=== PATIENT | female | born 1955 | race African-American/Black ===

== ENCOUNTER → 2016-11-09 | Outpatient (CLI) | payer OTHER ==
[2016-10-22 18:15] VITALS: BP 158/74
[~2016-11-09] MED LIST: HYDR-971 PO; IOHEXOL 240 MG/ML 50ML VIAL. PO ONE; IOHEXOL 300 MG/ML 100ML VIAL. IV ONE; METH-37 PO
--- NOTE | 2016-11-09 13:37 | KCIC ---
Examination: CT of the abdomen pelvis without and with IV contrast. HISTORY History of lower abdominal pain on the left side, pelvic pain for 1 year. COMPARISON None available. TECHNIQUE Axial CT images of the abdomen performed without and with IV contrast. Coronal reformats were performed. Sagittal reformats were performed. Exposure: One or more of the following dose reduction technique were utilized for this examination: 1. Automated exposure control. 2.Adjustment of MA and /or KV according to patient size. 3. Use of iterative reconstruction technique. Findings: Faint patchy bibasal, left lingular airspace opacities likely atelectasis or infiltrates. No evidence of free air identified in the abdomen. The visualized liver, spleen, right adrenal grossly appears unremarkable. There is a nodule identified in the left adrenal gland measuring 1.8 centimeters and measuring 25 Hounsfield units on the noncontrast images and 70 Hounsfield units on the postcontrast images. The visualized pancreas grossly appears unremarkable. The gallbladder is mildly distended. There is a hyperdensity identified in the proximal gallbladder in the region of the gallbladder neck measuring 1 centimeter likely a gallstone. The stomach is mildly distended. The small bowel is nondilated. The appendix grossly appears unremarkable. Feces and gas noted throughout the colon. The urinary bladder is mildly distended loop. The bilateral kidneys enhance symmetrically. Prior changes of hysterectomy. The right ovary grossly appears unremarkable. 2 millimeter punctate intrarenal collecting system calculus identified in the right kidney. There is minimal faint fat stranding identified about the left kidney. The urinary bladder is mildly distended. Moderate degenerative changes identified in the visualized thoracolumbar spine. IMPRESSION - 2 millimeter intrarenal collecting system calculus identified in the right kidney. - There is faint fat stranding identified about the left kidney, nonspecific and less likely pyelonephritis. Correlate with lab values. - 1.8 centimeter left adrenal nodule. Followup examination in 3-4 months is recommended to document stability. - Gallstone in the proximal gallbladder likely within the gallbladder neck. Ultrasound right upper quadrant be considered. - Faint airspace opacities identified in the left lingula and bibasilar lungs likely atelectasis or infiltrates. Electronically signed by: Stepan Fox (Nov 09, 2016 13:36:10)
== END | disposition home or self-care (01) ==
LOC: KCIC CT 11:13
PROVIDERS: ATTEND Family Medicine
DX: R10.30 Lower abdominal pain, unspecified (principal); M54.5 Low back pain; R10.2 Pelvic and perineal pain; I10 Essential (primary) hypertension; E11.9 Type 2 diabetes mellitus without complications
CPT/HCPCS: 74178; 82565; Q9966; Q9967

== ENCOUNTER → 2016-12-25 | Outpatient (CLI) | payer OTHER ==
[2016-10-22 18:15] VITALS: BP 158/74
[~2016-12-25] MED LIST changes: -IOHEXOL 240 MG/ML 50ML VIAL. PO ONE; -IOHEXOL 300 MG/ML 100ML VIAL. IV ONE
--- NOTE | 2016-12-25 10:35 | KCIC ---
Bilateral digital screening mammograms with CAD: HISTORY Routine screening. COMPARISON No previous examinations available for comparison. FINDINGS Breast density category A. The skin and nipples show no abnormalities. No abnormal lymph nodes are seen in the axilla. The breast parenchyma is predominately fatty. There are no dominant masses, suspicious calcifications or architectural distortions. IMPRESSION No evidence of malignancy. Recommend routine annual mammographic screening. This study was interpreted with the benefit of Computerized Aided Detection (CAD). Mammography is not 100% sensitive in detecting breast cancer. Therefore, a self breast exam and a clinical breast exam are very important. A negative mammogram does not negate a clinically suspicious finding and should not result in a delay in biopsying a clinically suspicious abnormality. BI-RADS category 1. Negative. This patient's information has been entered into a reminder system for the patient to be notified with the results of this examination and a target date for her next mammograms. Electronically signed by: Samia Downey MD (Dec 25, 2016 10:34:13)
== END | disposition home or self-care (01) ==
LOC: KCIC MAMMO 09:26
PROVIDERS: ATTEND Obstetrics & Gynecology
DX: Z12.31 Encounter for screening mammogram for malignant neoplasm of breast (principal)
CPT/HCPCS: G0202; 77067

== ENCOUNTER 2017-01-10 09:05 | Emergency (ER) | payer OTHER ==
--- NOTE | 2017-01-10 09:49 | PHYS DOC ---
Past Medical History Past Medical History: Arthritis, Diabetes-Type II, Hypertension Past Surgical History: , Hysterectomy, Tonsillectomy Alcohol Use: None Drug Use: None Adult General Chief Complaint Chief Complaint: OTHER COMPLAINTS HPI HPI Patient is a 61 year old female presents to the emergency department with 2-3 days HX of left lower back pain that radiates into the left leg. Patient denies falls, traumas or injury. Patient Denies nausea, vomiting or diarrhea. She states she has had left sided abdominal with a hard BM yesterday and today. She denies UTI symptoms. Patient does have a HX of sciatica pain. Patient has taken Tylenol with minimal relief. Review of Systems Review of Systems Constitutional: Denies fever or chills [] Eyes: Denies change in visual acuity, redness, or eye pain [] HENT: Denies nasal congestion or sore throat [] Respiratory: Denies cough or shortness of breath [] Cardiovascular: No additional information not addressed in HPI [] GI: left sided abdominal pain, hard stools, denies nausea, vomiting, bloody stools or diarrhea [] : Denies dysuria or hematuria [] Musculoskeletal: Denies back pain or joint pain [] Integument: Denies rash or skin lesions [] Neurologic: Denies headache, focal weakness or sensory changes [] Endocrine: Denies polyuria or polydipsia [] Current Medications Current Medications Current Medications Medications (Trade) Dose Ordered Sig/[facility] Start Time Stop Time Status Last Admin Dose Admin Ibuprofen (Motrin) 600 mg 1X ONCE 01/10/17 10:00 01/10/17 10:01 DC 01/10/17 09:51 600 MG Prednisone (Prednisone) 40 mg 1X ONCE 01/10/17 10:00 01/10/17 10:01 DC 01/10/17 09:50 40 MG Allergies Allergies Allergies Coded Allergies Type Severity Reaction Last Updated Verified No Known Drug Allergies 04/13/15 No Physical Exam Physical Exam Constitutional: Well developed, well nourished, no acute distress, non-toxic appearance. [] HENT: Normocephalic, atraumatic, bilateral external ears normal, oropharynx moist, no oral exudates, nose normal. [] Eyes: PERRLA, EOMI, conjunctiva normal, no discharge. [] Neck: Normal range of motion, no tenderness, supple, no stridor. [] Cardiovascular:Heart rate regular rhythm, no murmur [] Lungs & Thorax: Bilateral breath sounds clear to auscultation [] Abdomen: Bowel sounds hypoactive, soft, left upper and lower quadrant tenderness , no masses, no pulsatile masses. [] Skin: Warm, dry, no erythema, no rash. [] Back: left lower back tenderness, no CVA tenderness. [] Extremities: Left hip tenderness noted over the sciatica area, no cyanosis, no clubbing, ROM intact, no edema. Peripheral pulses 2+ cap refill brisk less than 2 seconds. Patient with equal strength noted per bilateral lower extremities. Neurologic: Alert and oriented X 3, normal motor function, normal sensory function, no focal deficits noted. [] Psychologic: Affect normal, judgement normal, mood normal. [] Current Patient Data Vital Signs Vital Signs Date Time Temp Pulse Resp B/P Pulse Ox O2 Delivery O2 Flow Rate FiO2 01/10/17 09:20 97.7 83 22 172/91 98 Room Air 97.7 EKG EKG [] Radiology/Procedures Radiology/Procedures [][facility] [address] [place] [address] IMAGING REPORT Signed PATIENT: LEISA TURK ACCOUNT: [id number] : 1955 LOCATION: ER AGE: 61 SEX: F EXAM STATUS: REG ER ORD. PHYSICIAN: MACKENZIE BARRIOS APRN REASON: left sided abdominal pain, hard BM today PROCEDURE: ACUTE ABDOMEN SERIES Abdomen series with chest, 3 views, 01/10/2017: History: Left-sided abdominal pain There is gas and stool scattered throughout the colon in a nonspecific pattern. No free air seen in the abdomen. There is no evidence of organomegaly. Lower pelvic calcifications are probably phleboliths. There is a mild thoracolumbar scoliosis with moderate degenerative change in the lumbar spine. The heart size and pulmonary vascularity are normal. No pulmonary infiltrate is seen. There is no evidence of pleural fluid. IMPRESSION: No acute abdominal abnormality is detected. DICTATED and SIGNED BY: DAMARIS ROGER MD DATE: 01/10/17 0823 CC: MACKENZIE BARRIOS APRN; ARVIND CHRISTIANSEN MD ~ Course & Med Decision Making Course & Med Decision Making Pertinent Labs and Imaging studies reviewed. (See chart for details) Acute abdominal x-ray was negative. Patient will be discharged home with steroids with recommendations for 600 mg of ibuprofen every 8 hours with food. Also recommended ice packs to the areas of discomfort. Signs and symptoms to return back to emergency department provided. Patient will be discharged home in stable condition. Patient agrees with discharge instructions treatment regimens and follow-up recommendations. [] Dragon Disclaimer Dragon Disclaimer This electronic medical record was generated, in whole or in part, using a voice recognition dictation system. Departure Departure Impression: Primary Impression: Sciatica Disposition: HOME, SELF-CARE Condition: STABLE Referrals: ARVIND CHRISTIANSEN MD (PCP) Patient Instructions: Sciatica, [id number] Additional Instructions: Activity as tolerated Medication as prescribed Ibuprofen 600 mg every 8 hous with food. Flexeril will cause drowsiness do not take if you need to be alert and oriented Ice packs on 20 minutes and off 20 minutes several time a day Drink plenty of water and high fiber diet to help promote softer stools Followup with your primary care provider in 7-10 days Return to emergency department for signs and symptoms that become worse. Scripts Prednisone 20 Mg [id number] Mg PO DAILY #10 TAB Prov:MACKENZIE BARRIOS APRN 01/10/17 Cyclobenzaprine Hcl 10 Mg [id number] Mg PO TID #30 TAB Prov:MACKENZIE BARRIOS APRN 01/10/17 MACKENZIE BARRIOS APRN Jan 10, 2017 09:49
[2017-01-10 10:00] VITALS: BP 183/95
[2017-01-10] MEDS ORDERED: IBUPROFEN 600 MG TABLET. PO ONE (10:00)
[2017-01-10] MEDS ORDERED: PREDNISONE 20 MG TABLET PO ONE (10:00)
--- NOTE | 2017-01-10 10:27 | RAD ---
Abdomen series with chest, 3 views, 01/10/2017: History: Left-sided abdominal pain There is gas and stool scattered throughout the colon in a nonspecific pattern. No free air seen in the abdomen. There is no evidence of organomegaly. Lower pelvic calcifications are probably phleboliths. There is a mild thoracolumbar scoliosis with moderate degenerative change in the lumbar spine. The heart size and pulmonary vascularity are normal. No pulmonary infiltrate is seen. There is no evidence of pleural fluid. IMPRESSION: No acute abdominal abnormality is detected.
[2017-01-10] MEDS ORDERED: CYCL10TA2 PO (10:35)
[2017-01-10] MEDS ORDERED: PRED20TA PO (10:35)
== END 2017-01-10 10:45 | disposition home or self-care (01) ==
LOC: ER 09:05
DX: M54.42 Lumbago with sciatica, left side (principal); R10.12 Left upper quadrant pain; M19.90 Unspecified osteoarthritis, unspecified site; E11.9 Type 2 diabetes mellitus without complications; I10 Essential (primary) hypertension; Z90.710 Acquired absence of both cervix and uterus; Z98.890 Other specified postprocedural states
CPT/HCPCS: 74022; 99284; J7512

== ENCOUNTER → 2017-01-25 | Outpatient (CLI) | payer OTHER ==
[2017-01-10 10:00] VITALS: BP 183/95
[~2017-01-25] MED LIST changes: +CYCL10TA2 PO; +PRED20TA PO
--- NOTE | 2017-01-25 10:17 | KCIC ---
PROCEDURE Lumbar spine series. HISTORY Low back pain radiating down left leg for 3-4 weeks. No known injury. TECHNIQUE Lumbosacral spine series with oblique views contains 5 images. COMPARISON None. FINDINGS There is 11 millimeters of anterolisthesis at L4-L5. There is mild levocurvature centered at L1-L2. There is endplate spurring noted throughout the lumbar spine, greatest on the right at L1-L2 and L2-L3. There is facet hypertrophy throughout the lumbar spine as well. There is narrowing of the interspace greatest at L3-L4. IMPRESSION Degenerative changes in the lumbar spine. Electronically signed by: Aaron Aviles MD (January 25, 2017 10:16:30)
== END | disposition home or self-care (01) ==
LOC: KCIC 09:13
PROVIDERS: ATTEND Family Medicine
DX: M47.896 Other spondylosis, lumbar region (principal)
CPT/HCPCS: 72110

== ENCOUNTER 2017-01-26 12:15 | Emergency (ER) | payer OTHER ==
--- NOTE | 2017-01-26 13:07 | PHYS DOC ---
Past Medical History Past Medical History: Arthritis, Diabetes-Type II, Hypertension Past Surgical History: , Hysterectomy, Tonsillectomy Alcohol Use: None Drug Use: None Adult General Chief Complaint Chief Complaint: BACK PAIN - NO INJURY [facility] HPI Patient is a 61 year old -[place] female who presents with sided sciatic pain. She states she's had this pain numerous times in the last time she was sent home with muscle relaxant and some pain meds. She states she ran out of these. She states a week ago her pain flared back up. Yesterday she had hip x-rays completed by her primary care physician. She denies any fevers chills nausea vomiting or leg weakness or numbness. She states she feels better when she is up walking and worse when she sits. She can't remember the names of the medicines she used to be on. Her grandson drove her to the emergency department. She denies any falls or trauma. Review of Systems Review of Systems Constitutional: Denies fever or chills [] Eyes: Denies change in visual acuity, redness, or eye pain [] HENT: Denies nasal congestion or sore throat [] Respiratory: Denies cough or shortness of breath [] Cardiovascular: No additional information not addressed in HPI [] GI: Denies abdominal pain, nausea, vomiting, bloody stools or diarrhea [] : Denies dysuria or hematuria [] Musculoskeletal: Denies back pain positive for left hip pain Integument: Denies rash or skin lesions [] Neurologic: Denies headache, focal weakness or sensory changes [] Endocrine: Denies polyuria or polydipsia [] Current Medications Current Medications Current Medications Medications (Trade) Dose Ordered Sig/[facility] Start Time Stop Time Status Last Admin Dose Admin Morphine Sulfate 4 mg 1X ONCE 01/26/17 13:30 01/26/17 13:42 DC 01/26/17 13:44 4 MG Allergies Allergies Allergies Coded Allergies Type Severity Reaction Last Updated Verified No Known Drug Allergies 04/13/15 No Physical Exam Physical Exam Constitutional: Well developed, well nourished, no acute distress, non-toxic appearance. [] HENT: Normocephalic, atraumatic, bilateral external ears normal, oropharynx moist, no oral exudates, nose normal. [] Eyes: PERRLA, EOMI, conjunctiva normal, no discharge. [] Neck: Normal range of motion, no tenderness, supple, no stridor. [] Cardiovascular:Heart rate regular rhythm, no murmur [] Lungs & Thorax: Bilateral breath sounds clear to auscultation [] Abdomen: Bowel sounds normal, soft, no tenderness, no masses, no pulsatile masses. [] Skin: Warm, dry, no erythema, no rash. [] Back: No tenderness, no CVA tenderness. Tender palpation to the left hip the posterior aspect, straight leg raise on the left positive. Extremities: No tenderness, no cyanosis, no clubbing, ROM intact, no edema. Dorsal pedal pulse 2+ bilateral lower extremities. Neurologic: Alert and oriented X 3, normal motor function, normal sensory function, no focal deficits noted. [] Psychologic: Affect normal, judgement normal, mood normal. [] Current Patient Data Vital Signs Vital Signs Date Time Temp Pulse Resp B/P (MAP) Pulse Ox O2 Delivery O2 Flow Rate FiO2 01/26/17 14:11 95 Room Air 01/26/17 13:55 89 18 114/63 (80) 01/26/17 12:25 97.9 97.9 EKG EKG [] Radiology/Procedures Radiology/Procedures [] Impressions: Sciatic pain Course & Med Decision Making Course & Med Decision Making Pertinent Labs and Imaging studies reviewed. (See chart for details) Patient is neurovascularly intact. She received 4 mg IM morphine and is being discharged home with Hamilton. She has Flexeril at home. She is to follow-up with her primary care physician within next few days. Return precautions given she is agreeable Plan B discharged in stable condition this time. Dragon Disclaimer Dragon Disclaimer This electronic medical record was generated, in whole or in part, using a voice recognition dictation system. Departure Departure Impression: Primary Impression: Sciatica Disposition: HOME, SELF-CARE Condition: STABLE Referrals: ARVIND CHRISTIANSEN MD (PCP) Patient Instructions: Sciatica, [id number] Additional Instructions: Your pain is consistent with sciatic nerve pain. You will need to continue taking your muscle relaxants at home. Your being discharged with Hamilton which is a narcotic pain medicine please be careful taking Hamilton as it can impair your judgment and make you sleepy. Do not drive your car while taking Hamilton. You will need to call your primary care physician and follow up with him within the next 3-4 days. If your pain gets worse, you have numbness, weakness in your leg we have other concerns please return back to emergency department. Scripts Hydrocodone/Apap 5-325 (NORCO 5-325 TABLET) 1 Each Tablet 1-2 TAB PO Q6HRS, #30 TAB Prov: ELAYNE RAMÍREZ MD 01/26/17 Problem Qualifiers Primary Impression: Sciatica Laterality: left Qualified Codes: M54.32 - Sciatica, left side ELAYNE RAMÍREZ MD January 26, 2017 13:07
[2017-01-26] MEDS ORDERED: MORPHINE SULFATE 4 MG/ML DISP.SYRIN. IM ONE (13:30)
[2017-01-26] MEDS ORDERED: HYDR-971 PO (14:16)
[2017-01-26 14:40] VITALS: BP 120/65
== END 2017-01-26 14:55 | disposition home or self-care (01) ==
LOC: ER 12:15
DX: M54.32 Sciatica, left side (principal); I10 Essential (primary) hypertension; E11.9 Type 2 diabetes mellitus without complications; M19.90 Unspecified osteoarthritis, unspecified site; Z98.890 Other specified postprocedural states; Z90.710 Acquired absence of both cervix and uterus
CPT/HCPCS: 96372; 99283; J2270

== ENCOUNTER → 2017-02-05 | Outpatient (CLI) | payer OTHER ==
[2017-01-26 14:40] VITALS: BP 120/65
--- NOTE | 2017-02-05 17:21 | KCIC ---
PROCEDURE MRI of the lumbar spine without contrast 02/05/2017 HISTORY Low back pain which radiates down the left leg. TECHNIQUE Unenhanced T1 weighted, T2 weighted and inversion recovery sagittal and T1 weighted and T2 weighted sagittal images of the lumbar spine were obtained. FINDINGS Comparison study is dated 01/25/2017. Mild lateral curvature of the lumbar spine is seen convex to the left. Mild anterolisthesis of L4 in relation to L5 is again seen. Degenerative signal changes are seen involving all of the discs of the lumbar spine. Degenerative signal changes are seen within the marrow surrounding these discs. Loss of height of the L3-4, L4-5 and L5-S1 discs is noted. The conus medullaris is normal in morphology, position, and signal characteristics. The L1-2 disc space there is a mild generalized disc bulge. Degenerative changes are seen involving the facet joints bilaterally. There is mild ligamentum flavum hypertrophy bilaterally. These findings do not result in significant central spinal canal or neural foraminal stenosis. At the L2-3 disc space there is mild to moderate generalized disc bulge. This is eccentric to the right. Degenerative changes are seen involving the facet joints bilaterally. There is moderate ligamentum flavum hypertrophy bilaterally. There is prominence of the posterior epidural fat. The these findings when combined result in moderate central spinal canal stenosis. Mild right neural foraminal stenosis is seen. The left neural foramina is patent. At the L3-4 disc space there is a moderate generalized disc bulge. Degenerative changes are seen involving the facet joints bilaterally. There is moderate ligamentum flavum hypertrophy bilaterally. There is prominence of the posterior epidural fat. These findings when combined result in moderate to severe central spinal canal stenosis. Moderate bilateral neural foraminal stenosis is seen. At the L4-5 disc space there is a moderate generalized disc bulge. This is eccentric to the left. Degenerative changes are seen involving the facet joints bilaterally. There is moderate to severe ligamentum flavum hypertrophy bilaterally. These findings when combined result in moderate to severe left greater than right central spinal canal stenosis. Mild to moderate left greater than right neural foraminal stenosis is seen. At the L5-S1 disc space there is moderate generalized disc bulge. This is eccentric to the left. Degenerative changes are seen involving the facet joints bilaterally. These findings when combined result in mild central spinal canal stenosis. Mild to moderate left greater than right neural foraminal stenosis is seen. IMPRESSION The changes of degenerative disc disease are seen throughout the lumbar spine. These findings result in moderate central spinal canal stenosis at L2-3, moderate to severe central spinal canal stenosis at L3-4, moderate to severe left greater than right neural foraminal stenosis at L4-5 and mild central spinal canal stenosis at L5-S1. Multilevel neural foraminal stenosis of varying severity is seen as outlined above. Electronically signed by: Fred Duarte MD (February 05, 2017 17:20:30)
== END | disposition home or self-care (01) ==
LOC: KCIC MRI 15:34
PROVIDERS: ATTEND Family Medicine
DX: M51.36 Other intervertebral disc degeneration, lumbar region (principal); M48.07 Spinal stenosis, lumbosacral region
CPT/HCPCS: 72148

== ENCOUNTER 2017-02-15 12:07 | Emergency (ER) | payer OTHER ==
[~2017-02-15] VITALS: Ht 157.5 cm; Wt 104.3 kg
[2017-02-15 13:00] VITALS: BP 147/88
--- NOTE | 2017-02-15 13:25 | PHYS DOC ---
Past Medical History Past Medical History: Arthritis, Diabetes-Type II, Hypertension Past Surgical History: , Hysterectomy, Tonsillectomy Alcohol Use: None Drug Use: None Adult General Chief Complaint Chief Complaint: LACERATION/AVULSION HPI HPI Patient is a 61 year old female presents emergency department stating that she was in the bathroom trying to clean things up when she went to catch a pitcher ended up cutting her in the right palm. She states that she is unsure when her last tetanus immunization occurred. Bleeding is currently controlled. A 4 cm laceration noted on the first metacarpal area on the right. Review of Systems Review of Systems Constitutional: Denies fever or chills [] Eyes: Denies change in visual acuity, redness, or eye pain [] HENT: Denies nasal congestion or sore throat [] Respiratory: Denies cough or shortness of breath [] Cardiovascular: No additional information not addressed in HPI [] GI: Denies abdominal pain, nausea, vomiting, bloody stools or diarrhea [] : Denies dysuria or hematuria [] Musculoskeletal: Denies back pain or joint pain [] Integument: Denies rash or skin lesions. Laceration right palm of hand Neurologic: Denies headache, focal weakness or sensory changes [] Endocrine: Denies polyuria or polydipsia [] Allergies Allergies Allergies Coded Allergies Type Severity Reaction Last Updated Verified No Known Drug Allergies 04/13/15 No Physical Exam Physical Exam Constitutional: Well developed, well nourished, no acute distress, non-toxic appearance. [] HENT: Normocephalic, atraumatic, bilateral external ears normal, oropharynx moist, no oral exudates, nose normal. [] Eyes: PERRLA, EOMI, conjunctiva normal, no discharge. [] Neck: Normal range of motion, no tenderness, supple, no stridor. [] Cardiovascular:Heart rate regular rhythm, no murmur [] Lungs & Thorax: Bilateral breath sounds clear to auscultation [] Skin: Warm, dry, no erythema, no rash. Laceration 4 cm in length to the first medical carpal area on the right hand in the palmar side. Back: No tenderness Extremities: No tenderness, no cyanosis, no clubbing, ROM intact, no edema. [] Neurologic: Alert and oriented X 3, normal motor function, normal sensory function, no focal deficits noted. [] Psychologic: Affect normal, judgement normal, mood normal. [] Current Patient Data Vital Signs Vital Signs Date Time Temp Pulse Resp B/P (MAP) Pulse Ox O2 Delivery O2 Flow Rate FiO2 02/15/17 13:00 97.9 75 16 98 Room Air 97.9 EKG EKG [] Radiology/Procedures Radiology/Procedures [] Course & Med Decision Making Course & Med Decision Making Pertinent Labs and Imaging studies reviewed. (See chart for details) She was provided with discharge instructions to keep the area clean and dry. Avoid removing the glue from the hand as this will open up the area further. Area was Steri-Stripped in which she Steri-Strips will fall off in approximately 7 days.Signs and symptoms to return back to emergency department as been provided. She is provided with signs and symptoms of infection: Redness , warmth, tenderness. Patient will be discharged home in stable condition. Dragon Disclaimer Dragon Disclaimer This electronic medical record was generated, in whole or in part, using a voice recognition dictation system. Departure Departure Impression: Primary Impression: Laceration Disposition: 01 HOME, SELF-CARE Condition: STABLE Referrals: ARVIND CHRISTIANSEN MD (PCP) Patient Instructions: Laceration Care, Adult, [id number], Stitches, [place] or Skin Adhesive Strips, [id number] Additional Instructions: Activity as tolerated. Keep the area clean and dry. The Steri-Strips should fall off in approximately 7-10 days. Do not peel the Steri-Strips or the glue off as this will reopened the laceration. You may apply ice packs as needed for pain and discomfort. Follow-up through primary care physician in the next 7-10 days if he should have any signs and symptoms of infection redness warmth tenderness or any yellow or greenish drainage and comes from the site. Return to emergency prior signs symptoms of become worse. MACKENZIE BARRIOS CODE INSPECTOR February 15, 2017 13:25
[2017-02-15] MEDS ORDERED: DIPHTH,PERTUSS(ACELL),TET TOX 0.5 ML DISP.SYRIN. VAX IM ONE (14:00)
== END 2017-02-15 14:01 | disposition home or self-care (01) ==
LOC: ER 12:07
DX: S61.210A Laceration without foreign body of right index finger without damage to nail, initial encounter (principal); I10 Essential (primary) hypertension; E11.9 Type 2 diabetes mellitus without complications; M19.90 Unspecified osteoarthritis, unspecified site; Y28.8XXA Contact with other sharp object, undetermined intent, initial encounter; Y93.89 Activity, other specified; Y99.8 Other external cause status; Y92.89 Other specified places as the place of occurrence of the external cause
CPT/HCPCS: 90471; 90715; 99283-25

== ENCOUNTER 2017-05-18 14:38 | Observation (INO) | payer OTHER ==
[~2017-05-18] VITALS: Ht 157.5 cm; Wt 118.8 kg
[2017-05-18 15:00] LABS: BASO # 0.1 x10^3/uL (0.0-0.2); BASO % 1 % (0-3); EOS % 4 % (0-3); HEMATOCRIT 33.4 % (36.0-47.0); HEMOGLOBIN 11.4 g/dL (12.0-15.5); LYMPH # 2.7 x10^3/uL (1.0-4.8); LYMPH % 31 % (24-48); MEAN CORPUSCULAR HEMOGLOBIN 31 pg (25-35); MEAN CORPUSCULAR HGB CONC 34 g/dL (31-37); MEAN CORPUSCULAR VOLUME 91 fL (79-100); MONO % 7 % (0-9); NEUT % 58 % (31-73); PLATELET COUNT 307 x10^3/uL (140-400); RED BLOOD COUNT 3.66 x10^6/uL (3.50-5.40); RED CELL DISTRIBUTION WIDTH 14.3 % (11.5-14.5); WHITE BLOOD COUNT 8.8 x10^3/uL (4.0-11.0)
--- NOTE | 2017-05-18 15:02 | PHYS DOC ---
Past Medical History Past Medical History: Arthritis, Diabetes-Type II, Hypertension Past Surgical History: , Hysterectomy, Tonsillectomy Alcohol Use: None Drug Use: None Adult General Chief Complaint Chief Complaint: CHEST PAIN HPI HPI Patient is a 62 year old female who presents with one week history of intermittent intensity right sided chest discomfort not exertional no cough fever is not radiate to the shoulder or neck. No prior workup for cardiac disease. Denies tobacco admits to family history with brother with coronary artery disease. Denies any prior stress test or heart catheter. Denies leg pain or swelling. Review of Systems Review of Systems Constitutional: Denies fever or chills [] Eyes: Denies change in visual acuity, redness, or eye pain [] HENT: Denies nasal congestion or sore throat [] Respiratory: Denies cough or shortness of breath [] Cardiovascular: No additional information not addressed in HPI [] GI: Denies abdominal pain, nausea, vomiting, bloody stools or diarrhea [] : Denies dysuria or hematuria [] Musculoskeletal: Denies back pain or joint pain [] Integument: Denies rash or skin lesions [] Neurologic: Denies headache, focal weakness or sensory changes [] Endocrine: Denies polyuria or polydipsia [] Allergies Allergies Allergies Coded Allergies Type Severity Reaction Last Updated Verified No Known Drug Allergies 04/13/15 No Physical Exam Physical Exam Constitutional: Well developed, well nourished, no acute distress, non-toxic appearance. [] HENT: Normocephalic, atraumatic, bilateral external ears normal, oropharynx moist, no oral exudates, nose normal. [] Eyes: PERRLA, EOMI, conjunctiva normal, no discharge. [] Neck: Normal range of motion, no tenderness, supple, no stridor. [] Cardiovascular:Heart rate regular rhythm, no murmur [chest wall is exquisitely tender in the right upper outer quadrant of the breast no palpable mass or lymphadenopathy in the axilla.] Lungs & Thorax: Bilateral breath sounds clear to auscultation [] Abdomen: Bowel sounds normal, soft, no tenderness, no masses, no pulsatile masses. [] Skin: Warm, dry, no erythema, no rash. [] Back: No tenderness, no CVA tenderness. [] Extremities: No tenderness, no cyanosis, no clubbing, ROM intact, no edema. [] Neurologic: Alert and oriented X 3, normal motor function, normal sensory function, no focal deficits noted. [] Psychologic: Affect normal, judgement normal, mood normal. [] Current Patient Data Vital Signs Vital Signs Date Time Temp Pulse Resp B/P (MAP) Pulse Ox O2 Delivery O2 Flow Rate FiO2 05/18/17 15:22 87 20 124/75 (91) 97 Room Air 05/18/17 14:40 97.7 97.7 Lab Values Laboratory Tests Test 05/18/17 14:55 White Blood Count 8.8 x10^3/uL (4.0-11.0) Red Blood Count 3.66 x10^6/uL (3.50-5.40) Hemoglobin 11.4 g/dL (12.0-15.5) L Hematocrit 33.4 % (36.0-47.0) L Mean Corpuscular Volume 91 fL (79-100) Mean Corpuscular Hemoglobin 31 pg (25-35) Mean Corpuscular Hemoglobin Concent 34 g/dL (31-37) Red Cell Distribution Width 14.3 % (11.5-14.5) Platelet Count 307 x10^3/uL (140-400) Neutrophils (%) (Auto) 58 % (31-73) Lymphocytes (%) (Auto) 31 % (24-48) Monocytes (%) (Auto) 7 % (0-9) Eosinophils (%) (Auto) 4 % (0-3) H Basophils (%) (Auto) 1 % (0-3) Neutrophils # (Auto) 5.1 x10^3uL (1.8-7.7) Lymphocytes # (Auto) 2.7 x10^3/uL (1.0-4.8) Monocytes # (Auto) 0.6 x10^3/uL (0.0-1.1) Eosinophils # (Auto) 0.3 x10^3/uL (0.0-0.7) Basophils # (Auto) 0.1 x10^3/uL (0.0-0.2) Sodium Level 141 mmol/L (136-145) Potassium Level 4.9 mmol/L (3.5-5.1) Chloride Level 106 mmol/L (98-107) Carbon Dioxide Level 24 mmol/L (21-32) Anion Gap 11 (6-14) Blood Urea Nitrogen 37 mg/dL (7-20) H Creatinine 1.7 mg/dL (0.6-1.0) H Estimated GFR (Cockcroft-Gault) 36.6 BUN/Creatinine Ratio 22 (6-20) H Glucose Level 92 mg/dL (70-99) Calcium Level 8.9 mg/dL (8.5-10.1) Total Bilirubin 0.4 mg/dL (0.2-1.0) Aspartate Amino Transferase (AST) 15 U/L (15-37) Alanine Aminotransferase (ALT) 20 U/L (14-59) Alkaline Phosphatase 93 U/L (46-116) Troponin I Quantitative < 0.017 ng/mL (0.000-0.055) Total Protein 7.6 g/dL (6.4-8.2) Albumin 3.8 g/dL (3.4-5.0) Albumin/Globulin Ratio 1.0 (1.0-1.7) Laboratory Tests 05/18/17 14:55 Laboratory Tests 05/18/17 14:55 EKG EKG EKG normal sinus rhythm rate of 93 no STEMI QTC 495 interpreted by me [] Radiology/Procedures Radiology/Procedures Chest x-ray cardiomegaly no infiltrate and no pneumothorax my interpretation Course & Med Decision Making Course & Med Decision Making Pertinent Labs and Imaging studies reviewed. (See chart for details) EKG nondiagnostic chest x-ray negative troponin negative we'll admit for rule out needs a stress test. test results were discussed with the patient. Discussed with hospitalist. [] Dragon Disclaimer Dragon Disclaimer This electronic medical record was generated, in whole or in part, using a voice recognition dictation system. Departure Departure Impression: Primary Impression: Chest pain Condition: STABLE Referrals: ARVIND CHRISTIANSEN MD (PCP) KATHERIN SALGUERO MD May 18, 2017 15:02
[2017-05-18 15:15] LABS: CALCIUM 8.9 mg/dL (8.5-10.1); CREATININE 1.7 mg/dL (0.6-1.0); GFR 36.6; POTASSIUM 4.9 mmol/L (3.5-5.1)
[2017-05-18 15:39] LABS: ALBUMIN 3.8 g/dL (3.4-5.0); TOTAL BILIRUBIN 0.4 mg/dL (0.2-1.0); TOTAL PROTEIN 7.6 g/dL (6.4-8.2)
[2017-05-18] MEDS ORDERED: ASPIRIN CHEWABLE 81 MG TABLET. PO ONE (18:00)
[2017-05-18 18:24] VITALS: BP 136/74
[2017-05-18 18:25] VITALS: BP 136/74
[2017-05-18] MEDS ORDERED: HYDROcodone/APAP 7.5/325MG 1 TAB TABLET PO PRN (18:45)
[2017-05-18] MEDS ORDERED: GABA-586 PO (19:30)
[2017-05-18] MEDS ORDERED: CYCL10TA2 PO (19:30)
[2017-05-18] MEDS ORDERED: OMEP20CA9 PO (19:30)
[2017-05-18] MEDS ORDERED: ATOR20TA58 PO (19:30)
[2017-05-18] MEDS ORDERED: GABA600T2 PO (19:30)
[2017-05-18] MEDS ORDERED: OXYB10TA PO (19:30)
[2017-05-18] MEDS ORDERED: HYDR-2758 PO (19:30)
[2017-05-18] MEDS ORDERED: METF500T4 PO (19:30)
[2017-05-18] MEDS: oxyCODONE/APAP 7.5/325 1 TAB TABLET PO PRN (19:35)
[2017-05-18] MEDS: LORazepam 1 MG TABLET PO PRN (19:37)
[2017-05-18] MEDS ORDERED: DICL75TA PO (19:40)
--- NOTE | 2017-05-18 21:57 | HP ---
ADMIT DATE: 05/18/2017 CHIEF COMPLAINT: Chest pain. HISTORY OF PRESENT ILLNESS: The patient is a pleasant 62-year-old female who is quite overweight. Basically, she presents with chest pain that has been occurring intermittently for a week, it is right-sided. While in the ER, she is noted to have anemia and acute on chronic renal failure with a creatinine of 1.7 and some subtle EKG changes. I discussed the case with the ER physician. She also has some cardiomegaly on a chest x-ray. She has some other risk factors including a brother who had coronary artery disease and she is diabetic. We are going to admit the patient and consult Cardiology. PAST MEDICAL AND SURGICAL HISTORY: Morbid obesity, arthritis, diabetes, hypertension, C-sections, hysterectomy, tonsillectomy. ALLERGIES: None. FAMILY HISTORY: Hypertension, coronary artery disease. SOCIAL HISTORY: She does not drink, smoke or take drugs. MEDICATIONS: Reviewed. REVIEW OF SYSTEMS: GENERAL: No history of weight change, weakness or fevers. SKIN: No bruising, hair changes or rashes. EYES: No blurred, double or loss of vision. NOSE AND THROAT: No history of nosebleeds, hoarseness or sore throat. HEART: She complains of chest pain. LUNGS: Denies cough, hemoptysis, wheezing or shortness of breath. GASTROINTESTINAL: Denies changes in appetite, nausea, vomiting, diarrhea or constipation. GENITOURINARY: No history of frequency, urgency, hesitancy or nocturia. NEUROLOGIC: Denies history of numbness, tingling, tremor or weakness. PSYCHIATRIC: No history of panic, anxiety or depression. ENDOCRINE: No history of heat or cold intolerance, polyuria or polydipsia. EXTREMITIES: Denies muscle weakness, joint pain, pain on walking or stiffness. PHYSICAL EXAMINATION: VITAL SIGNS: Temperature afebrile, pulse 92, respirations 18, blood pressure 114/80. GENERAL: She is alert, cooperative, upon my arrival to the room. Her family just brought several large bags of chicken. We put her on low sodium cardiac diet, but apparently she is not going to follow it. HEART: Distant S1, S2. LUNGS: Clear. ABDOMEN: Soft, morbidly obese. EXTREMITIES: Obese, trace edema. SKIN: No rashes. PSYCHIATRIC: She is pleasant and stable. VASCULAR: Good capillary refill. ENDOCRINE: No thyromegaly. LYMPHATICS: No cervical nodes. HEMATOPOIETIC: No bruising. ASSESSMENT AND PLAN: Chest pain with cardiomegaly on chest x-ray in a middle-aged female who has multiple comorbidities including obesity, family history of coronary artery disease and diabetes. The patient is being admitted. We will consult Cardiology, serial enzymes, serial EKGs. I encouraged her to try to follow her diet that we have ordered for her. Daily aspirin. Continue home medicines. KAYLEE MACHADO DO DR: LILLIE/elizabeth JOB#: [id number] / [id number]
[2017-05-18] MEDS: ATORVASTATIN CALCIUM 20 MG TABLET PO SCH (22:02)
[2017-05-18] MEDS: CYCLOBENZAPRINE 10 MG TABLET. PO SCH (22:02)
[2017-05-18] MEDS: OXYBUTYNIN CHLORIDE 5 MG TABLET PO SCH (22:02)
[2017-05-18] MEDS: DICLOFENAC SODIUM 25 MG TABLET.DR PO SCH (22:02)
[2017-05-18 22:39] VITALS: BP 104/61
[2017-05-19 03:00] VITALS: BP 103/58
[2017-05-19] MEDS: PANTOPRAZOLE 40 MG TABLET.DR. PO SCH (06:18)
[2017-05-19 07:45] VITALS: BP 125/66
--- NOTE | 2017-05-19 07:47 | RAD ---
AP chest radiograph 05/18/2017 Clinical indication: Right-sided chest pain. Comparison: Chest radiograph 01/10/2017 Findings: Cardiac and mediastinal silhouettes are within normal limits. There is stable minimal left basilar atelectasis and/or scarring. No pleural effusion, pneumothorax or focal consolidation. Impression: No acute cardiopulmonary abnormality.
[2017-05-19] MEDS ORDERED: metFORMIN 500 MG TABLET PO SCH (08:00)
[2017-05-19] MEDS ORDERED: ASPIRIN CHEWABLE 81 MG TABLET. PO SCH (09:00)
[2017-05-19] MEDS: DICLOFENAC SODIUM 25 MG TABLET.DR PO SCH ×2 (09:12→20:55)
[2017-05-19] MEDS: ASPIRIN ENTERIC COATED 81 MG TABLET.DR. PO SCH (09:12)
[2017-05-19] MEDS: oxyCODONE/APAP 7.5/325 1 TAB TABLET PO PRN ×2 (09:13→16:00)
[2017-05-19] MEDS: GABAPENTIN 300 MG CAPSULE. PO SCH ×2 (09:13→16:01)
[2017-05-19] MEDS: CYCLOBENZAPRINE 10 MG TABLET. PO SCH ×3 (09:13→20:55)
[2017-05-19] MEDS: OXYBUTYNIN CHLORIDE 5 MG TABLET PO SCH ×2 (09:13→20:54)
[2017-05-19 11:10] VITALS: BP 104/68
[2017-05-19] MEDS ORDERED: DEXTROSE 50% 25 GM / 50ML DISP.SYRIN. IV PRN (11:15)
[2017-05-19] MEDS ORDERED: ONDANSETRON PF 4 MG/2 ML VIAL. IV PRN (11:15)
[2017-05-19] MEDS ORDERED: ACETAMINOPHEN 500 MG TABLET PO PRN (11:15)
[2017-05-19] MEDS ORDERED: HYDROcodone/APAP 5/325MG 1 TAB TABLET PO PRN (11:15)
[2017-05-19] MEDS ORDERED: MORPHINE SULFATE 2 MG/ML DISP.SYRIN. IV PRN (11:15)
[2017-05-19] MEDS: INSULIN ASPART 300 UNITS/3 ML INSULN.PEN SQ SCH ×2 (12:00→17:00)
--- NOTE | 2017-05-19 12:21 | PDOC ---
PROGRESS NOTES Chief Complaint Chief Complaint 1. CHest pain, atypical in an adult at rest 2. HTN controlled 3. DM 2 unknown hgba1c 4. LYNN on CKD possibly stage 3-4 5. Hx hyperkalemia per family's acct History of Present Illness History of Present Illness Wants to go home soon NO CP VS stable BUt creat 1,7 with GFR 30s NEws to pt BUt PCP Dr. Noe did mention hyperkalemia in past and adjusted her meds Good uO Mentions saw DR. Esquivel at one point? PLAN: IVF NS 100cc/hr CHeck UA and renal sono Get renal consult CArds plans on echo and mPI heber Add pt/ot No nephrotoxins BMP heber NPO post mN for MPI Dw whole family at bedside Vitals Vitals Vital Signs Date Time Temp Pulse Resp B/P (MAP) Pulse Ox O2 Delivery O2 Flow Rate FiO2 05/19/17 11:10 97.5 85 18 104/68 (80) 94 Room Air 97.5 Physical Exam General: Alert, Oriented X3, Cooperative, No acute distress Heart: Regular rate, Normal S1, Normal S2, No murmurs Lungs: Clear Abdomen: Normal bowel sounds, Soft, No tenderness Extremities: No clubbing, No cyanosis, No edema Skin: No rashes, No breakdown, No significant lesion Labs LABS Laboratory Tests Test 05/18/17 14:55 05/18/17 21:05 05/19/17 08:06 05/19/17 11:46 White Blood Count 8.8 x10^3/uL (4.0-11.0) Red Blood Count 3.66 x10^6/uL (3.50-5.40) Hemoglobin 11.4 g/dL (12.0-15.5) Hematocrit 33.4 % (36.0-47.0) Mean Corpuscular Volume 91 fL (79-100) Mean Corpuscular Hemoglobin 31 pg (25-35) Mean Corpuscular Hemoglobin Concent 34 g/dL (31-37) Red Cell Distribution Width 14.3 % (11.5-14.5) Platelet Count 307 x10^3/uL (140-400) Neutrophils (%) (Auto) 58 % (31-73) Lymphocytes (%) (Auto) 31 % (24-48) Monocytes (%) (Auto) 7 % (0-9) Eosinophils (%) (Auto) 4 % (0-3) Basophils (%) (Auto) 1 % (0-3) Neutrophils # (Auto) 5.1 x10^3uL (1.8-7.7) Lymphocytes # (Auto) 2.7 x10^3/uL (1.0-4.8) Monocytes # (Auto) 0.6 x10^3/uL (0.0-1.1) Eosinophils # (Auto) 0.3 x10^3/uL (0.0-0.7) Basophils # (Auto) 0.1 x10^3/uL (0.0-0.2) Sodium Level 141 mmol/L (136-145) Potassium Level 4.9 mmol/L (3.5-5.1) Chloride Level 106 mmol/L (98-107) Carbon Dioxide Level 24 mmol/L (21-32) Anion Gap 11 (6-14) Blood Urea Nitrogen 37 mg/dL (7-20) Creatinine 1.7 mg/dL (0.6-1.0) Estimated GFR (Cockcroft-Gault) 36.6 BUN/Creatinine Ratio 22 (6-20) Glucose Level 92 mg/dL (70-99) Calcium Level 8.9 mg/dL (8.5-10.1) Total Bilirubin 0.4 mg/dL (0.2-1.0) Aspartate Amino Transf (AST/SGOT) 15 U/L (15-37) Alanine Aminotransferase (ALT/SGPT) 20 U/L (14-59) Alkaline Phosphatase 93 U/L (46-116) Troponin I Quantitative < 0.017 ng/mL (0.000-0.055) Total Protein 7.6 g/dL (6.4-8.2) Albumin 3.8 g/dL (3.4-5.0) Albumin/Globulin Ratio 1.0 (1.0-1.7) Glucose (Fingerstick) 93 mg/dL (70-99) 76 mg/dL (70-99) 87 mg/dL (70-99) Review of Systems Review of Systems denies 14 pt reviewed Assessment and Plan Assessmemt and Plan Problems Medical Problems: (1) Chest pain Status: Acute Problems: Comment Review of Relevant I have reviewed the following items cyn (where applicable) has been applied. Labs Laboratory Tests Test 05/18/17 14:55 05/18/17 21:05 05/19/17 08:06 05/19/17 11:46 White Blood Count 8.8 x10^3/uL (4.0-11.0) Red Blood Count 3.66 x10^6/uL (3.50-5.40) Hemoglobin 11.4 g/dL (12.0-15.5) Hematocrit 33.4 % (36.0-47.0) Mean Corpuscular Volume 91 fL (79-100) Mean Corpuscular Hemoglobin 31 pg (25-35) Mean Corpuscular Hemoglobin Concent 34 g/dL (31-37) Red Cell Distribution Width 14.3 % (11.5-14.5) Platelet Count 307 x10^3/uL (140-400) Neutrophils (%) (Auto) 58 % (31-73) Lymphocytes (%) (Auto) 31 % (24-48) Monocytes (%) (Auto) 7 % (0-9) Eosinophils (%) (Auto) 4 % (0-3) Basophils (%) (Auto) 1 % (0-3) Neutrophils # (Auto) 5.1 x10^3uL (1.8-7.7) Lymphocytes # (Auto) 2.7 x10^3/uL (1.0-4.8) Monocytes # (Auto) 0.6 x10^3/uL (0.0-1.1) Eosinophils # (Auto) 0.3 x10^3/uL (0.0-0.7) Basophils # (Auto) 0.1 x10^3/uL (0.0-0.2) Sodium Level 141 mmol/L (136-145) Potassium Level 4.9 mmol/L (3.5-5.1) Chloride Level 106 mmol/L (98-107) Carbon Dioxide Level 24 mmol/L (21-32) Anion Gap 11 (6-14) Blood Urea Nitrogen 37 mg/dL (7-20) Creatinine 1.7 mg/dL (0.6-1.0) Estimated GFR (Cockcroft-Gault) 36.6 BUN/Creatinine Ratio 22 (6-20) Glucose Level 92 mg/dL (70-99) Calcium Level 8.9 mg/dL (8.5-10.1) Total Bilirubin 0.4 mg/dL (0.2-1.0) Aspartate Amino Transf (AST/SGOT) 15 U/L (15-37) Alanine Aminotransferase (ALT/SGPT) 20 U/L (14-59) Alkaline Phosphatase 93 U/L (46-116) Troponin I Quantitative < 0.017 ng/mL (0.000-0.055) Total Protein 7.6 g/dL (6.4-8.2) Albumin 3.8 g/dL (3.4-5.0) Albumin/Globulin Ratio 1.0 (1.0-1.7) Glucose (Fingerstick) 93 mg/dL (70-99) 76 mg/dL (70-99) 87 mg/dL (70-99) Laboratory Tests Test 05/18/17 14:55 05/18/17 21:05 05/19/17 08:06 05/19/17 11:46 White Blood Count 8.8 x10^3/uL (4.0-11.0) Red Blood Count 3.66 x10^6/uL (3.50-5.40) Hemoglobin 11.4 g/dL (12.0-15.5) Hematocrit 33.4 % (36.0-47.0) Mean Corpuscular Volume 91 fL (79-100) Mean Corpuscular Hemoglobin 31 pg (25-35) Mean Corpuscular Hemoglobin Concent 34 g/dL (31-37) Red Cell Distribution Width 14.3 % (11.5-14.5) Platelet Count 307 x10^3/uL (140-400) Neutrophils (%) (Auto) 58 % (31-73) Lymphocytes (%) (Auto) 31 % (24-48) Monocytes (%) (Auto) 7 % (0-9) Eosinophils (%) (Auto) 4 % (0-3) Basophils (%) (Auto) 1 % (0-3) Neutrophils # (Auto) 5.1 x10^3uL (1.8-7.7) Lymphocytes # (Auto) 2.7 x10^3/uL (1.0-4.8) Monocytes # (Auto) 0.6 x10^3/uL (0.0-1.1) Eosinophils # (Auto) 0.3 x10^3/uL (0.0-0.7) Basophils # (Auto) 0.1 x10^3/uL (0.0-0.2) Sodium Level 141 mmol/L (136-145) Potassium Level 4.9 mmol/L (3.5-5.1) Chloride Level 106 mmol/L (98-107) Carbon Dioxide Level 24 mmol/L (21-32) Anion Gap 11 (6-14) Blood Urea Nitrogen 37 mg/dL (7-20) Creatinine 1.7 mg/dL (0.6-1.0) Estimated GFR (Cockcroft-Gault) 36.6 BUN/Creatinine Ratio 22 (6-20) Glucose Level 92 mg/dL (70-99) Calcium Level 8.9 mg/dL (8.5-10.1) Total Bilirubin 0.4 mg/dL (0.2-1.0) Aspartate Amino Transf (AST/SGOT) 15 U/L (15-37) Alanine Aminotransferase (ALT/SGPT) 20 U/L (14-59) Alkaline Phosphatase 93 U/L (46-116) Troponin I Quantitative < 0.017 ng/mL (0.000-0.055) Total Protein 7.6 g/dL (6.4-8.2) Albumin 3.8 g/dL (3.4-5.0) Albumin/Globulin Ratio 1.0 (1.0-1.7) Glucose (Fingerstick) 93 mg/dL (70-99) 76 mg/dL (70-99) 87 mg/dL (70-99) Medications Current Medications Aspirin (Children'S Aspirin) 324 mg 1X ONCE PO Last administered on 05/18/17 19:18; Start 05/18/17 at 18:00; Stop 05/18/17 at 18:02; Status DC Acetaminophen/ Hydrocodone Bitart (Lortab 7.5/325) 1 tab PRN Q4HRS PRN PO PAIN ; Start 05/18/17 at 18:45; Stop 05/18/17 at 19:18; Status DC Lorazepam (Ativan) 1 mg PRN Q6HRS PRN PO ANXIETY / AGITATION Last administered on 05/18/17 19:37; Start 05/18/17 at 18:45 Aspirin (Children'S Aspirin) 81 mg DAILY PO ; Start 05/19/17 at 09:00; Stop at 09:00; Status DC Oxycodone/ Acetaminophen (Percocet 7.5/ 325) 1 tab PRN Q4HRS PRN PO PAIN Last administered on 05/19/17 09:13; Start 05/18/17 at 19:30 Aspirin (Ecotrin) 81 mg DAILY PO Last administered on 05/19/17 09:12; Start at 09:00 Atorvastatin Calcium (Lipitor) 20 mg HS PO Last administered on 05/18/17 22:02 ; Start 05/18/17 at 21:00 Cyclobenzaprine HCl (Flexeril) 10 mg TID PO Last administered on 05/19/17 09: 13; Start 05/18/17 at 21:00 Metformin HCl (Glucophage) 500 mg BIDWMEALS PO Last administered on 05/19/17 09:13; Start 05/19/17 at 08:00 Diclofenac Sodium (Voltaren) 75 mg BID PO Last administered on 05/19/17 09:12 ; Start 05/18/17 at 21:00 Gabapentin (Neurontin) 300 mg DAILY08 PO Last administered on 05/19/17 09:13; Start 05/19/17 at 08:00 Gabapentin (Neurontin) 800 mg DAILY16 PO ; Start 05/19/17 at 16:00 Pantoprazole Sodium (Protonix) 40 mg DAILYAC PO Last administered on 05/19/17 06:18; Start 05/19/17 at 07:30 Oxybutynin Chloride (Ditropan) 5 mg BID PO Last administered on 05/19/17 09:13 ; Start 05/18/17 at 21:00 Insulin Aspart (NovoLOG) 0-9 UNITS TIDWMEALS SQ ; Start 05/19/17 at 12:00 Dextrose (Dextrose 50%-Water Syringe) 12.5 gm PRN Q15MIN PRN IV SEE COMMENTS; Start 05/19/17 at 11:15 Morphine Sulfate 2 mg PRN Q2HR PRN IV PAIN; Start 05/19/17 at 11:15 Acetaminophen/ Hydrocodone Bitart (Lortab 5/325) 1 tab PRN Q6HRS PRN PO PAIN; Start 05/19/17 at 11:15 Acetaminophen (Tylenol) 500 mg PRN Q6HRS PRN PO MILD PAIN / TEMP; Start at 11:15 Ondansetron HCl (Zofran) 4 mg PRN Q6HRS PRN IV NAUSEA/VOMITING; Start 05/19/17 at 11:15 Active Scripts Active Reported Diclofenac Sodium 75 Mg Tablet.dr Owusu Tab PO BID Gabapentin 600 Mg Tablet 600 Mg PO DAILY16 Gabapentin 300 Mg Capsule 300 Mg PO DAILY08 Oxybutynin Chloride Er (Oxybutynin Chloride) 10 Mg Tab.er.24 1 Tab PO DAILY Atorvastatin Calcium 20 Mg Tablet 20 Mg PO HS Omeprazole 20 Mg Capsule.dr Owusu Cap PO DAILY Metformin Hcl 500 Mg Tablet 500 Mg PO BIDWMEALS Hydrocodone-Apap 5-325 (Hydrocodone Bit/Acetaminophen) 1 Each Tablet 1 Tab PO PRN Q6HRS PRN Cyclobenzaprine Hcl 10 Mg Tablet 1 Tab PO TID Vitals/I & O Vital Sign - Last 24 Hours 05/18/17 05/18/17 05/18/17 05/18/17 14:40 15:22 18:24 18:25 Temp 97.7 98.2 98.2 97.7 98.2 98.2 Pulse 103 87 78 78 Resp 30 20 18 18 B/P (MAP) 152/74 (100) 124/75 (91) 136/74 (94) 136/74 (94) Pulse Ox 96 97 99 99 O2 Delivery Room Air Room Air Room Air 05/18/17 05/18/17 05/18/17 05/18/17 18:37 19:20 19:35 22:39 Temp 97.6 97.6 Pulse 90 Resp 18 18 B/P (MAP) 104/61 (75) Pulse Ox 99 96 O2 Delivery Room Air Room Air Room Air Room Air 05/19/17 05/19/17 05/19/17 05/19/17 03:00 07:45 08:13 09:13 Temp 97.9 97.7 97.9 97.7 Pulse 73 84 Resp 16 18 B/P (MAP) 103/58 (73) 125/66 (85) Pulse Ox 97 95 95 O2 Delivery Room Air Room Air Room Air Room Air 05/19/17 05/19/17 10:19 11:10 Temp 97.5 97.5 Pulse 85 Resp 18 18 B/P (MAP) 104/68 (80) Pulse Ox 95 94 O2 Delivery Room Air Room Air Intake and Output 05/18/17 05/18/17 05/19/17 15:00 23:00 07:00 Intake Total 60 ml 260 ml Balance 60 ml 260 ml RICHAR BREEN MD May 19, 2017 12:21
--- NOTE | 2017-05-19 12:40 | EKG ---
[facility] [address] [place] [address] Test Date: 2017-05-18 Test Time: 14:42:00 Pat Name: LEISA TURK Department: Room: 262 1 Gender: F [employer] Supervisor: : 1955 Requested By: KATHERIN SALGUERO Order Number: [id number] Reading MD: Marc Andrew Measurements Intervals [place] Rate: 93 P: 41 WI: 188 QRS: 17 QRSD: 68 T: 41 QT: 396 QTc: 495 Interpretive Statements SINUS RHYTHM Electronically Signed On 05-20-2017 11:55:27 CDT by Marc Andrew
[2017-05-19] MEDS: IV NORMAL SALINE 1000ML BAG 1,000 ML IV SCH (14:16)
--- NOTE | 2017-05-19 15:06 | PDOC2 ---
CONSULT Date of Consult Date of Consult DATE: 05/19/17 TIME: 14:58 Reason for Consult Reason for Consult: chest pain Referring Physician Referring Physician: Dr. Salas Identification/Chief Complaint Chief Complaint Chest pain Problems: Source Source: Patient History of Present Illness Reason for Visit: The patient is a 62 year old female with several days of periodic chest pain. The pain occurs randomly and is nor clearly associated with exertion. It can sometime be changed with arm movement. The patient has no acute EKG changes and initial troponin is normal. She has a history of DM, HTN and chronic kidney disease. She is feeling better today. Past Medical History Cardiovascular: HTN Musculoskeletal: Osteoarthritis Renal/: Chronic renal insuff Endocrine: Diabetes Past Surgical History Past Surgical History: , Tonsillectomy, Hysterectomy Family History Family History: Heart Disease, High Cholestrol Social History No ALCOHOL: none Current Problem List Problem List Problems Medical Problems: (1) Chest pain Status: Acute Current Medications Current Medications Current Medications Aspirin (Children'S Aspirin) 324 mg 1X ONCE PO Last administered on 05/18/17 19:18; Start 05/18/17 at 18:00; Stop 05/18/17 at 18:02; Status DC Acetaminophen/ Hydrocodone Bitart (Lortab 7.5/325) 1 tab PRN Q4HRS PRN PO PAIN ; Start 05/18/17 at 18:45; Stop 05/18/17 at 19:18; Status DC Lorazepam (Ativan) 1 mg PRN Q6HRS PRN PO ANXIETY / AGITATION Last administered on 05/18/17 19:37; Start 05/18/17 at 18:45 Aspirin (Children'S Aspirin) 81 mg DAILY PO ; Start 05/19/17 at 09:00; Stop at 09:00; Status DC Oxycodone/ Acetaminophen (Percocet 7.5/ 325) 1 tab PRN Q4HRS PRN PO PAIN Last administered on 05/19/17 09:13; Start 05/18/17 at 19:30 Aspirin (Ecotrin) 81 mg DAILY PO Last administered on 05/19/17 09:12; Start at 09:00 Atorvastatin Calcium (Lipitor) 20 mg HS PO Last administered on 05/18/17 22:02 ; Start 05/18/17 at 21:00 Cyclobenzaprine HCl (Flexeril) 10 mg TID PO Last administered on 05/19/17 14: 14; Start 05/18/17 at 21:00 Metformin HCl (Glucophage) 500 mg BIDWMEALS PO Last administered on 05/19/17 09:13; Start 05/19/17 at 08:00 Diclofenac Sodium (Voltaren) 75 mg BID PO Last administered on 05/19/17 09:12 ; Start 05/18/17 at 21:00 Gabapentin (Neurontin) 300 mg DAILY08 PO Last administered on 05/19/17 09:13; Start 05/19/17 at 08:00 Gabapentin (Neurontin) 600 mg DAILY16 PO ; Start 05/19/17 at 16:00 Pantoprazole Sodium (Protonix) 40 mg DAILYAC PO Last administered on 05/19/17 06:18; Start 05/19/17 at 07:30 Oxybutynin Chloride (Ditropan) 5 mg BID PO Last administered on 05/19/17 09:13 ; Start 05/18/17 at 21:00 Insulin Aspart (NovoLOG) 0-9 UNITS TIDWMEALS SQ ; Start 05/19/17 at 12:00 Dextrose (Dextrose 50%-Water Syringe) 12.5 gm PRN Q15MIN PRN IV SEE COMMENTS; Start 05/19/17 at 11:15 Morphine Sulfate 2 mg PRN Q2HR PRN IV PAIN; Start 05/19/17 at 11:15 Acetaminophen/ Hydrocodone Bitart (Lortab 5/325) 1 tab PRN Q6HRS PRN PO PAIN; Start 05/19/17 at 11:15 Acetaminophen (Tylenol) 500 mg PRN Q6HRS PRN PO MILD PAIN / TEMP; Start at 11:15 Ondansetron HCl (Zofran) 4 mg PRN Q6HRS PRN IV NAUSEA/VOMITING; Start 05/19/17 at 11:15 Sodium Chloride 1,000 ml @ 100 mls/hr Q10H IV Last administered on 05/19/17 14:16; Start 05/19/17 at 12:30 Active Scripts Active Reported Diclofenac Sodium 75 Mg Tablet.dr 1 Tab PO BID Gabapentin 600 Mg Tablet 600 Mg PO DAILY16 Gabapentin 300 Mg Capsule 300 Mg PO DAILY08 Oxybutynin Chloride Er (Oxybutynin Chloride) 10 Mg Tab.er.24 1 Tab PO DAILY Atorvastatin Calcium 20 Mg Tablet 20 Mg PO HS Omeprazole 20 Mg Capsule.dr 1 Cap PO DAILY Metformin Hcl 500 Mg Tablet 500 Mg PO BIDWMEALS Hydrocodone-Apap 5-325 (Hydrocodone Bit/Acetaminophen) 1 Each Tablet 1 Tab PO PRN Q6HRS PRN Cyclobenzaprine Hcl 10 Mg Tablet 1 Tab PO TID Allergies Allergies: Coded Allergies: No Known Drug Allergies (Unverified , 04/13/15) ROS Respiratory: YES: SOB with excertion Cardiovascular: yes Chest Pain Physical Exam General: mild distress HEENT: Atraumatic Lungs: Clear to auscultation Heart: Regular rate Abdomen: Normal bowel sounds Vitals VITALS Vital Signs Date Time Temp Pulse Resp B/P (MAP) Pulse Ox O2 Delivery O2 Flow Rate FiO2 05/19/17 11:10 97.5 85 18 104/68 (80) 94 Room Air 97.5 Labs Labs Laboratory Tests Test 05/18/17 14:55 05/18/17 21:05 05/19/17 08:06 05/19/17 11:46 White Blood Count 8.8 x10^3/uL (4.0-11.0) Red Blood Count 3.66 x10^6/uL (3.50-5.40) Hemoglobin 11.4 g/dL (12.0-15.5) Hematocrit 33.4 % (36.0-47.0) Mean Corpuscular Volume 91 fL (79-100) Mean Corpuscular Hemoglobin 31 pg (25-35) Mean Corpuscular Hemoglobin Concent 34 g/dL (31-37) Red Cell Distribution Width 14.3 % (11.5-14.5) Platelet Count 307 x10^3/uL (140-400) Neutrophils (%) (Auto) 58 % (31-73) Lymphocytes (%) (Auto) 31 % (24-48) Monocytes (%) (Auto) 7 % (0-9) Eosinophils (%) (Auto) 4 % (0-3) Basophils (%) (Auto) 1 % (0-3) Neutrophils # (Auto) 5.1 x10^3uL (1.8-7.7) Lymphocytes # (Auto) 2.7 x10^3/uL (1.0-4.8) Monocytes # (Auto) 0.6 x10^3/uL (0.0-1.1) Eosinophils # (Auto) 0.3 x10^3/uL (0.0-0.7) Basophils # (Auto) 0.1 x10^3/uL (0.0-0.2) Sodium Level 141 mmol/L (136-145) Potassium Level 4.9 mmol/L (3.5-5.1) Chloride Level 106 mmol/L (98-107) Carbon Dioxide Level 24 mmol/L (21-32) Anion Gap 11 (6-14) Blood Urea Nitrogen 37 mg/dL (7-20) Creatinine 1.7 mg/dL (0.6-1.0) Estimated GFR (Cockcroft-Gault) 36.6 BUN/Creatinine Ratio 22 (6-20) Glucose Level 92 mg/dL (70-99) Calcium Level 8.9 mg/dL (8.5-10.1) Total Bilirubin 0.4 mg/dL (0.2-1.0) Aspartate Amino Transf (AST/SGOT) 15 U/L (15-37) Alanine Aminotransferase (ALT/SGPT) 20 U/L (14-59) Alkaline Phosphatase 93 U/L (46-116) Troponin I Quantitative < 0.017 ng/mL (0.000-0.055) Total Protein 7.6 g/dL (6.4-8.2) Albumin 3.8 g/dL (3.4-5.0) Albumin/Globulin Ratio 1.0 (1.0-1.7) Glucose (Fingerstick) 93 mg/dL (70-99) 76 mg/dL (70-99) 87 mg/dL (70-99) Laboratory Tests Test 05/18/17 21:05 05/19/17 08:06 05/19/17 11:46 Glucose (Fingerstick) 93 mg/dL (70-99) 76 mg/dL (70-99) 87 mg/dL (70-99) Images Images CXR. Cardiomegaly, no acute changes Assessment/Plan Assessment/Plan 1. Chest pain. Some atypical features but multiple risk factors. Murmur and cardiomegaly. Will rule out. Continue meds. ECHO and MPI testing. 2. HTN. Continue meds and monitor. 3. DM as per the primary service. 4. LYNN on chronic renal disease. Creat. 1.7. As per primary. 5. Probable HLD. Check lab. Thank you for allowing us to participate in the care of your patient. DAVEY JAMES MD May 19, 2017 15:06
[2017-05-19 15:20] VITALS: BP 111/63
--- NOTE | 2017-05-19 15:36 | RAD ---
Ultrasound renal complete 05/19/2017 Clinical indication: Assess echogenicity. Comparison: CT abdomen November 09, 2016. Findings: Right kidney is present measuring 9.9 cm in length without collecting system dilatation, abnormal perinephric fluid collection or abnormal increased cortical echogenicity. Left kidney is present measuring up to 9.7 cm in length without abnormal perinephric fluid collection, collecting system dilatation or abnormal increased cortical echogenicity. Urinary bladder is decompressed. Impression: Both kidneys present without hydronephrosis or increased cortical echogenicity.
[2017-05-19 16:25] LABS: BILIRUBIN,URINE NEGATIVE (NEG); GLUCOSE,URINE NEGATIVE (NEG); NITRITE,URINE NEGATIVE (NEG); PROTEIN,URINE NEGATIVE (NEG-TRACE); UROBILINOGEN,URINE 0.2 mg/dL (0.2 mg/dL)
[2017-05-19 16:34] LABS: BACTERIA,URINE FEW /HPF (0-FEW); RBC,URINE 0 /HPF (0-2); SQUAMOUS EPITHELIAL CELL,UR MANY /LPF
[2017-05-19 19:35] VITALS: BP 112/68
[2017-05-19] MEDS: ATORVASTATIN CALCIUM 20 MG TABLET PO SCH (20:54)
[2017-05-19] MEDS: LORazepam 1 MG TABLET PO PRN (20:55)
[2017-05-19 23:35] VITALS: BP 127/73
--- NOTE | 2017-05-19 23:53 | PDOC2 ---
CONSULT Date of Consult Date of Consult DATE: 05/19/17 TIME: 23:53 Past Medical History Cardiovascular: HTN Musculoskeletal: Osteoarthritis Renal/: Chronic renal insuff Endocrine: Diabetes Past Surgical History Past Surgical History: , Tonsillectomy, Hysterectomy Family History Family History: Heart Disease, High Cholestrol Social History No ALCOHOL: none Current Problem List Problem List Problems Medical Problems: (1) Chest pain Status: Acute Current Medications Current Medications Current Medications Aspirin (Children'S Aspirin) 324 mg 1X ONCE PO Last administered on 05/18/17 19:18; Start 05/18/17 at 18:00; Stop 05/18/17 at 18:02; Status DC Acetaminophen/ Hydrocodone Bitart (Lortab 7.5/325) 1 tab PRN Q4HRS PRN PO PAIN ; Start 05/18/17 at 18:45; Stop 05/18/17 at 19:18; Status DC Lorazepam (Ativan) 1 mg PRN Q6HRS PRN PO ANXIETY / AGITATION Last administered on 05/19/17 20:55; Start 05/18/17 at 18:45 Aspirin (Children'S Aspirin) 81 mg DAILY PO ; Start 05/19/17 at 09:00; Stop at 09:00; Status DC Oxycodone/ Acetaminophen (Percocet 7.5/ 325) 1 tab PRN Q4HRS PRN PO PAIN Last administered on 05/19/17 16:00; Start 05/18/17 at 19:30 Aspirin (Ecotrin) 81 mg DAILY PO Last administered on 05/19/17 09:12; Start at 09:00 Atorvastatin Calcium (Lipitor) 20 mg HS PO Last administered on 05/19/17 20:54 ; Start 05/18/17 at 21:00 Cyclobenzaprine HCl (Flexeril) 10 mg TID PO Last administered on 05/19/17 20: 55; Start 05/18/17 at 21:00 Metformin HCl (Glucophage) 500 mg BIDWMEALS PO Last administered on 05/19/17 09:13; Start 05/19/17 at 08:00; Stop 05/19/17 at 15:33; Status DC Diclofenac Sodium (Voltaren) 75 mg BID PO Last administered on 05/19/17 20:55 ; Start 05/18/17 at 21:00 Gabapentin (Neurontin) 300 mg DAILY08 PO Last administered on 05/19/17 09:13; Start 05/19/17 at 08:00 Gabapentin (Neurontin) 600 mg DAILY16 PO Last administered on 05/19/17 16:01; Start 05/19/17 at 16:00 Pantoprazole Sodium (Protonix) 40 mg DAILYAC PO Last administered on 05/19/17 06:18; Start 05/19/17 at 07:30 Oxybutynin Chloride (Ditropan) 5 mg BID PO Last administered on 05/19/17 20:54 ; Start 05/18/17 at 21:00 Insulin Aspart (NovoLOG) 0-9 UNITS TIDWMEALS SQ ; Start 05/19/17 at 12:00 Dextrose (Dextrose 50%-Water Syringe) 12.5 gm PRN Q15MIN PRN IV SEE COMMENTS; Start 05/19/17 at 11:15 Morphine Sulfate 2 mg PRN Q2HR PRN IV PAIN; Start 05/19/17 at 11:15 Acetaminophen/ Hydrocodone Bitart (Lortab 5/325) 1 tab PRN Q6HRS PRN PO PAIN; Start 05/19/17 at 11:15 Acetaminophen (Tylenol) 500 mg PRN Q6HRS PRN PO MILD PAIN / TEMP; Start at 11:15 Ondansetron HCl (Zofran) 4 mg PRN Q6HRS PRN IV NAUSEA/VOMITING; Start 05/19/17 at 11:15 Sodium Chloride 1,000 ml @ 100 mls/hr Q10H IV Last administered on 05/19/17 14:16; Start 05/19/17 at 12:30 Active Scripts Active Reported Diclofenac Sodium 75 Mg Tablet. 1 Tab PO BID Gabapentin 600 Mg Tablet 600 Mg PO DAILY16 Gabapentin 300 Mg Capsule 300 Mg PO DAILY08 Oxybutynin Chloride Er (Oxybutynin Chloride) 10 Mg Tab.er.24 1 Tab PO DAILY Atorvastatin Calcium 20 Mg Tablet 20 Mg PO HS Omeprazole 20 Mg Capsule.dr [place] Cap PO DAILY Metformin Hcl 500 Mg Tablet 500 Mg PO BIDWMEALS Hydrocodone-Apap 5-325 (Hydrocodone Bit/Acetaminophen) 1 Each Tablet 1 Tab PO PRN Q6HRS PRN Cyclobenzaprine Hcl 10 Mg Tablet 1 Tab PO TID Allergies Allergies: Coded Allergies: No Known Drug Allergies (Unverified , 04/13/15) Vitals VITALS Vital Signs Date Time Temp Pulse Resp B/P (MAP) Pulse Ox O2 Delivery O2 Flow Rate FiO2 05/19/17 19:35 97.8 83 18 112/68 (83) 97 Room Air 97.8 Labs Labs Laboratory Tests Test 05/18/17 14:55 05/18/17 21:05 05/19/17 08:06 05/19/17 11:46 White Blood Count 8.8 x10^3/uL (4.0-11.0) Red Blood Count 3.66 x10^6/uL (3.50-5.40) Hemoglobin 11.4 g/dL (12.0-15.5) Hematocrit 33.4 % (36.0-47.0) Mean Corpuscular Volume 91 fL (79-100) Mean Corpuscular Hemoglobin 31 pg (25-35) Mean Corpuscular Hemoglobin Concent 34 g/dL (31-37) Red Cell Distribution Width 14.3 % (11.5-14.5) Platelet Count 307 x10^3/uL (140-400) Neutrophils (%) (Auto) 58 % (31-73) Lymphocytes (%) (Auto) 31 % (24-48) Monocytes (%) (Auto) 7 % (0-9) Eosinophils (%) (Auto) 4 % (0-3) Basophils (%) (Auto) 1 % (0-3) Neutrophils # (Auto) 5.1 x10^3uL (1.8-7.7) Lymphocytes # (Auto) 2.7 x10^3/uL (1.0-4.8) Monocytes # (Auto) 0.6 x10^3/uL (0.0-1.1) Eosinophils # (Auto) 0.3 x10^3/uL (0.0-0.7) Basophils # (Auto) 0.1 x10^3/uL (0.0-0.2) Sodium Level 141 mmol/L (136-145) Potassium Level 4.9 mmol/L (3.5-5.1) Chloride Level 106 mmol/L (98-107) Carbon Dioxide Level 24 mmol/L (21-32) Anion Gap 11 (6-14) Blood Urea Nitrogen 37 mg/dL (7-20) Creatinine 1.7 mg/dL (0.6-1.0) Estimated GFR (Cockcroft-Gault) 36.6 BUN/Creatinine Ratio 22 (6-20) Glucose Level 92 mg/dL (70-99) Calcium Level 8.9 mg/dL (8.5-10.1) Total Bilirubin 0.4 mg/dL (0.2-1.0) Aspartate Amino Transf (AST/SGOT) 15 U/L (15-37) Alanine Aminotransferase (ALT/SGPT) 20 U/L (14-59) Alkaline Phosphatase 93 U/L (46-116) Troponin I Quantitative < 0.017 ng/mL (0.000-0.055) Total Protein 7.6 g/dL (6.4-8.2) Albumin 3.8 g/dL (3.4-5.0) Albumin/Globulin Ratio 1.0 (1.0-1.7) Glucose (Fingerstick) 93 mg/dL (70-99) 76 mg/dL (70-99) 87 mg/dL (70-99) Test 05/19/17 15:45 05/19/17 16:38 05/19/17 20:50 Urine Collection Type Unknown Urine Color Yellow Urine Clarity Clear Urine pH 5.0 Urine Specific [place] 1.020 Urine Protein Negative mg/dL (NEG-TRACE) Urine Glucose (UA) Negative mg/dL (NEG) Urine Ketones (Stick) Negative mg/dL (NEG) Urine Blood Negative (NEG) Urine Nitrite Negative (NEG) Urine Bilirubin Negative (NEG) Urine Urobilinogen Dipstick 0.2 mg/dL (0.2 mg/dL) Urine Leukocyte Esterase Small (NEG) Urine RBC 0 /HPF (0-2) Urine WBC 1-4 /HPF (0-4) Urine Squamous Epithelial Cells Many /LPF Urine Bacteria Few /HPF (0-FEW) Urine Hyaline Casts Few /HPF Urine Mucus Marked /LPF Glucose (Fingerstick) 100 mg/dL (70-99) 106 mg/dL (70-99) Laboratory Tests Test 05/19/17 08:06 05/19/17 11:46 05/19/17 15:45 05/19/17 16:38 Glucose (Fingerstick) 76 mg/dL (70-99) 87 mg/dL (70-99) 100 mg/dL (70-99) Urine Collection Type Unknown Urine Color Yellow Urine Clarity Clear Urine pH 5.0 Urine Specific [place] 1.020 Urine Protein Negative mg/dL (NEG-TRACE) Urine Glucose (UA) Negative mg/dL (NEG) Urine Ketones (Stick) Negative mg/dL (NEG) Urine Blood Negative (NEG) Urine Nitrite Negative (NEG) Urine Bilirubin Negative (NEG) Urine Urobilinogen Dipstick 0.2 mg/dL (0.2 mg/dL) Urine Leukocyte Esterase Small (NEG) Urine RBC 0 /HPF (0-2) Urine WBC 1-4 /HPF (0-4) Urine Squamous Epithelial Cells Many /LPF Urine Bacteria Few /HPF (0-FEW) Urine Hyaline Casts Few /HPF Urine Mucus Marked /LPF Test 05/19/17 20:50 Glucose (Fingerstick) 106 mg/dL (70-99) Assessment/Plan Assessment/Plan RENAL CONSULT/ ISAK Dictated. ARF? Obtain records from Dr. Barker [facility] ADITI PARISI MD May 19, 2017 23:53
[2017-05-20] MEDS: IV NORMAL SALINE 1000ML BAG 1,000 ML IV SCH ×2 (00:41→08:30)
[2017-05-20 03:35] VITALS: BP 122/42
[2017-05-20 03:57] LABS: CALCIUM 7.7 mg/dL (8.5-10.1); CREATININE 1.6 mg/dL (0.6-1.0); GFR 39.3; POTASSIUM 4.6 mmol/L (3.5-5.1)
[2017-05-20 04:39] LABS: CHOLESTEROL/HDL RATIO 3.5
[2017-05-20 07:00] VITALS: BP 127/73
[2017-05-20] MEDS ORDERED: REGADENOSON 0.4 MG/5 ML DISP.SYRIN. IV ONE (08:00)
[2017-05-20] MEDS: INSULIN ASPART 300 UNITS/3 ML INSULN.PEN SQ SCH ×2 (08:00→12:00)
[2017-05-20] MEDS: CYCLOBENZAPRINE 10 MG TABLET. PO SCH ×2 (10:24→15:13)
[2017-05-20] MEDS: PANTOPRAZOLE 40 MG TABLET.DR. PO SCH (10:24)
[2017-05-20] MEDS: OXYBUTYNIN CHLORIDE 5 MG TABLET PO SCH (10:24)
[2017-05-20] MEDS: GABAPENTIN 300 MG CAPSULE. PO SCH ×2 (10:24→15:13)
[2017-05-20] MEDS: DICLOFENAC SODIUM 25 MG TABLET.DR PO SCH (10:25)
[2017-05-20] MEDS: oxyCODONE/APAP 7.5/325 1 TAB TABLET PO PRN (10:25)
[2017-05-20] MEDS: ASPIRIN ENTERIC COATED 81 MG TABLET.DR. PO SCH (10:25)
--- NOTE | 2017-05-20 10:49 | PDOC ---
CARDIO Progress Notes Date and Time Date of Service 05/20/17 Time of Evaluation 1040 Subjective Subjective: No Chest Pain, No shortness of breath Vitals Vitals Vital Signs Date Time Temp Pulse Resp B/P (MAP) Pulse Ox O2 Delivery O2 Flow Rate FiO2 05/20/17 10:25 Room Air 05/20/17 07:00 98.4 86 19 127/73 (91) 98 98.4 Weight Weight [ ] Input and Output Intake and Output Intake and Output 05/20/17 07:00 Intake Total 934 ml Output Total 450 ml Balance 484 ml Intake Oral 620 ml Other 314 ml Output Urine Total 450 ml # Voids 4 Laboratory Labs Laboratory Tests Test 05/19/17 11:46 05/19/17 15:45 05/19/17 16:38 05/19/17 20:50 Glucose (Fingerstick) 87 mg/dL (70-99) 100 mg/dL (70-99) 106 mg/dL (70-99) Urine Collection Type Unknown Urine Color Yellow Urine Clarity Clear Urine pH 5.0 Urine Specific [place] 1.020 Urine Protein Negative mg/dL (NEG-TRACE) Urine Glucose (UA) Negative mg/dL (NEG) Urine Ketones (Stick) Negative mg/dL (NEG) Urine Blood Negative (NEG) Urine Nitrite Negative (NEG) Urine Bilirubin Negative (NEG) Urine Urobilinogen Dipstick 0.2 mg/dL (0.2 mg/dL) Urine Leukocyte Esterase Small (NEG) Urine RBC 0 /HPF (0-2) Urine WBC 1-4 /HPF (0-4) Urine Squamous Epithelial Cells Many /LPF Urine Bacteria Few /HPF (0-FEW) Urine Hyaline Casts Few /HPF Urine Mucus Marked /LPF Test 05/20/17 03:12 05/20/17 07:48 Sodium Level 141 mmol/L (136-145) Potassium Level 4.6 mmol/L (3.5-5.1) Chloride Level 107 mmol/L (98-107) Carbon Dioxide Level 24 mmol/L (21-32) Anion Gap 10 (6-14) Blood Urea Nitrogen 34 mg/dL (7-20) Creatinine 1.6 mg/dL (0.6-1.0) Estimated GFR (Cockcroft-Gault) 39.3 Glucose Level 100 mg/dL (70-99) Calcium Level 7.7 mg/dL (8.5-10.1) Troponin I Quantitative < 0.017 ng/mL (0.000-0.055) Triglycerides Level 84 mg/dL (0-150) Cholesterol Level 138 mg/dL (0-200) LDL Cholesterol, Calculated 81 mg/dL (0-100) VLDL Cholesterol, Calculated 17 mg/dL (0-40) Non-HDL Cholesterol Calculated 98 mg/dL (0-129) HDL Cholesterol 40 mg/dL (40-60) Cholesterol/HDL Ratio 3.5 Glucose (Fingerstick) 96 mg/dL (70-99) Physical Exam HEENT: Neck Supple W Full Motion Chest: Symmetric LUNGS: Clear to Auscultation Heart: S1S2, RRR Extremities: No Calf Tenderness Neurology: alert, oriented, follow commands Assessment Assessment 1. Chest pain, atypical. Troponin series normal- AMI ruled out. Echo pending to assess LV function. MPI underway to r/o ischemia. Further recommendations pending diagnostics. 2. Hypertension; well-controlled. 3. Diabetes; per PCP 4. LYNN on CKD; IVF. per nephrology 5. Hyperlipidemia; lipids on goal JADE RETANA APRN May 20, 2017 10:49
--- NOTE | 2017-05-20 11:35 | RAD ---
APPROVED REPORT Test Type: Pharmacological Stress Nurse/Tech: Gladys Lopez R.N. Test Indications: c/p Cardiac History: htn, dm,family hx Medications: See Electronic Medical Record Medical History: See Electronic Medical Record Resting ECG: SR Resting Heart Rate: 79 bpm Resting Blood Pressure: 121/55mmHg Pretest Chest Pain: No chest pain Nurse/Tech Notes S1S2, lungs CTA Consent: The procedure was explained to the patient in lay terms. Informed consent was witnessed. Bradley eout was entered into [employer]. History and Stress Test performed by RT Wilfredo (Sherif) (N) Pharm. Details Pharmacologic stress testing was performed using 0.4mg per 5ml of regadenoson given intravenously ove r 7-10 seconds. Stress Symptoms dyspnea which resolved by the end of recovery time POST EXERCISE Reason for Termination: Infusion complete Max HR: 113 bpm Max Blood Pressure: 126/56mmHg Blood Pressure response to exercise: Normal blood pressure response during stress. Heart Rate response to exercise: wnl Chest Pain: No. Arrhythmia: No. ST Change: No. INTERPRETATION Stress EKG Conclusion: No evidence of stress induced EKG changes. Imaging Protocol IMAGE PROTOCOL: Stress Tc-99m/rest Tc-99m 2 days Rest: Stress: Viability: Radiopharm.Tc99m Sestamibi [id number] Img Date 05/20/2017 Inj-Img [id number]. Stress Admin Site: IV - Right ForearmAdministrator: RT Wilfredo (Sherif)(N) STRESS DATA End Diast. Vol.52.0mlAv. Heart Biuu148.0bpm End Syst. Vol.8.0mlCO Index BSA0.0L/min Myocardial Mass96.0gEject. Jmavqyul94.0% Stress Rates Pk. Fill Rate6.68EDV/secLVtime Pk. Fill 122.98msec Pk. Empty Rate7.55ESV/secLVtime Pk. Nojwg186.66msec /3 Pk. Fill1.02EDV/sec Stress Scores Regional WT0.00Summed WT1.00 Regional WM0.00Summed WM3.00 LV Perfusion Normal perfusion at stress. LV Perf. Quant 17 Seg. SSS2.00 Stress Defect Extent (% LAD)0.00Rest Defect Extent (% LAD)Rev. Defect Extent (% LAD)0.00 Stress Defect Extent (% LCX) 18.80Rest Defect Extent (% LCX)Rev. Defect Extent (% LCX)0.00 Stress Defect Extent (% RCA)0.00Rest Defect Extent (% RCA)Rev. Defect Extent (% RCA)0.00 Stress Defect Extent (% JULIO)4.10Rest Defect Extent (% JULIO)Rev. Defect Extent (% JULIO)0.00 Other Information Quality:Good Risk Assessment: Low Risk Conclusion 1. No evidence of EKG changes with stress testing. 2. Normal perfusion at stress. 3. Low risk study. 4. EF > 60%.
--- NOTE | 2017-05-20 11:44 | CARD ---
APPROVED REPORT EXAM: Two-dimensional and M-mode echocardiogram with Doppler and color Doppler. Other Information Quality : GoodHR: 108bpm Rhythm : Tachycardia INDICATION Murmur Cardiomegaly RISK FACTORS Obesity 2D DIMENSIONS RVDd2.9 (2.9-3.5cm)Left Atrium(2D)4.3 (1.6-4.0cm) IVSd0.9 (0.7-1.1cm)Aortic Root(2D)2.2 (2.0-3.7cm) LVDd4.5 (3.9-5.9cm)LVOT Diameter2.2 (1.8-2.4cm) PWd0.9 (0.7-1.1cm)LVDs2.9 (2.5-4.0cm) FS (%) 34.8 %SV57.8 ml LVEF(%)64.1 (>50%) Aortic Valve AoV Peak Yonas.173.0cm/sAoV VTI28.7cm AO Peak GR.12.0mmHgLVOT Peak Yonas.119.7cm/s AO Mean GR.7mmHgAVA (VMAX)2.70cm2 Mitral Valve MV E Kegtndik18.9cm/sMV E Peak Gr.6mmHg MV DECEL [id number] A Knwyevfj318.0cm/s MV E Mean Gr.3mmHgE/A Ratio0.6 MV A [id number] Pulmonary Valve PV Peak Gkgvzfdp703.7cm/s Pulmonary Vein S1 Bdzbmvvf22.9cm/sD2 Fpgnufba62.5cm/s PVa [id number] LEFT VENTRICLE The left ventricle is normal size. There is normal left ventricular wall thickness. The left ventricu lar systolic function is normal and the ejection fraction is within normal range. The Ejection Fracti on is 65-70%. There is normal LV segmental wall motion. Transmitral Doppler flow pattern is Grade I-a bnormal relaxation pattern. RIGHT VENTRICLE The right ventricle is normal size. There is normal right ventricular wall thickness. The right ventr icular systolic function is normal. ATRIA The left atrium size is normal. The right atrium size is normal. The interatrial septum is intact wit h no evidence for an atrial septal defect or patent foramen ovale as noted on 2-D or Doppler imaging. AORTIC VALVE The aortic valve is normal in structure and function. The aortic valve is trileaflet. Doppler and Col or Flow revealed no significant aortic regurgitation. There is no significant aortic valvular stenosi s. MITRAL VALVE The mitral valve is normal in structure and function. There is no evidence of mitral valve prolapse. There is no mitral valve stenosis. Doppler and Color Flow revealed no mitral valve regurgitation note d. TRICUSPID VALVE Doppler and Color Flow revealed no tricuspid valve regurgitation noted. Unable to determine pulmonary artery pressure at exam time. PULMONIC VALVE The pulmonic valve is not well visualized but appears to open adequately. Doppler and Color Flow reve aled no pulmonic valvular regurgitation. There is no pulmonic valvular stenosis by spectral Doppler. GREAT VESSELS The aortic root is normal in size. The ascending aorta is normal in size. The IVC is normal in size a nd collapses >50% with inspiration. PERICARDIAL EFFUSION There is no evidence of significant pericardial effusion. Critical Notification Critical Value: No <Conclusion> The left ventricular systolic function is normal and the ejection fraction is within normal range. Th e Ejection Fraction is 65-70%. There is normal LV segmental wall motion.
--- NOTE | 2017-05-20 11:54 | PDOC ---
PROGRESS NOTES Chief Complaint Chief Complaint 1. CHest pain, atypical in an adult at rest 2. HTN controlled 3. DM 2 unknown hgba1c 4. LYNN on CKD possibly stage 3-4 5. Hx hyperkalemia per family's acct 6. right shoulder pain, w. movement and reproducible, muscle strain 7. Morbid obesity, BMI 48 History of Present Illness History of Present Illness stress test today concerned abotu pain to right armpit, worse with some flexion movements VS stable renal fxn OK Good uO IVF NS 100cc/hr renal consult echo and MPI pt/ot Vitals Vitals Vital Signs Date Time Temp Pulse Resp B/P (MAP) Pulse Ox O2 Delivery O2 Flow Rate FiO2 05/20/17 10:25 Room Air 05/20/17 07:00 98.4 86 19 127/73 (91) 98 98.4 Physical Exam General: Alert, Oriented X3, Cooperative, No acute distress Heart: Regular rate Lungs: Clear Abdomen: Normal bowel sounds Extremities: No clubbing, No cyanosis, No edema Skin: No rashes, No breakdown, No significant lesion Labs LABS Laboratory Tests Test 05/19/17 15:45 05/19/17 16:38 05/19/17 20:50 05/20/17 03:12 Urine Collection Type Unknown Urine Color Yellow Urine Clarity Clear Urine pH 5.0 Urine Specific [place] 1.020 Urine Protein Negative mg/dL (NEG-TRACE) Urine Glucose (UA) Negative mg/dL (NEG) Urine Ketones (Stick) Negative mg/dL (NEG) Urine Blood Negative (NEG) Urine Nitrite Negative (NEG) Urine Bilirubin Negative (NEG) Urine Urobilinogen Dipstick 0.2 mg/dL (0.2 mg/dL) Urine Leukocyte Esterase Small (NEG) Urine RBC 0 /HPF (0-2) Urine WBC 1-4 /HPF (0-4) Urine Squamous Epithelial Cells Many /LPF Urine Bacteria Few /HPF (0-FEW) Urine Hyaline Casts Few /HPF Urine Mucus Marked /LPF Glucose (Fingerstick) 100 mg/dL (70-99) 106 mg/dL (70-99) Sodium Level 141 mmol/L (136-145) Potassium Level 4.6 mmol/L (3.5-5.1) Chloride Level 107 mmol/L (98-107) Carbon Dioxide Level 24 mmol/L (21-32) Anion Gap 10 (6-14) Blood Urea Nitrogen 34 mg/dL (7-20) Creatinine 1.6 mg/dL (0.6-1.0) Estimated GFR (Cockcroft-Gault) 39.3 Glucose Level 100 mg/dL (70-99) Calcium Level 7.7 mg/dL (8.5-10.1) Troponin I Quantitative < 0.017 ng/mL (0.000-0.055) Triglycerides Level 84 mg/dL (0-150) Cholesterol Level 138 mg/dL (0-200) LDL Cholesterol, Calculated 81 mg/dL (0-100) VLDL Cholesterol, Calculated 17 mg/dL (0-40) Non-HDL Cholesterol Calculated 98 mg/dL (0-129) HDL Cholesterol 40 mg/dL (40-60) Cholesterol/HDL Ratio 3.5 Test 05/20/17 07:48 Glucose (Fingerstick) 96 mg/dL (70-99) Review of Systems Review of Systems right arm pain no n.v.d slept OK Assessment and Plan Assessmemt and Plan Problems Medical Problems: (1) Chest pain Status: Acute Problems: Comment Review of Relevant I have reviewed the following items cyn (where applicable) has been applied. Labs Laboratory Tests Test 05/18/17 14:55 05/18/17 21:05 05/19/17 08:06 05/19/17 11:46 White Blood Count 8.8 x10^3/uL (4.0-11.0) Red Blood Count 3.66 x10^6/uL (3.50-5.40) Hemoglobin 11.4 g/dL (12.0-15.5) Hematocrit 33.4 % (36.0-47.0) Mean Corpuscular Volume 91 fL (79-100) Mean Corpuscular Hemoglobin 31 pg (25-35) Mean Corpuscular Hemoglobin Concent 34 g/dL (31-37) Red Cell Distribution Width 14.3 % (11.5-14.5) Platelet Count 307 x10^3/uL (140-400) Neutrophils (%) (Auto) 58 % (31-73) Lymphocytes (%) (Auto) 31 % (24-48) Monocytes (%) (Auto) 7 % (0-9) Eosinophils (%) (Auto) 4 % (0-3) Basophils (%) (Auto) 1 % (0-3) Neutrophils # (Auto) 5.1 x10^3uL (1.8-7.7) Lymphocytes # (Auto) 2.7 x10^3/uL (1.0-4.8) Monocytes # (Auto) 0.6 x10^3/uL (0.0-1.1) Eosinophils # (Auto) 0.3 x10^3/uL (0.0-0.7) Basophils # (Auto) 0.1 x10^3/uL (0.0-0.2) Sodium Level 141 mmol/L (136-145) Potassium Level 4.9 mmol/L (3.5-5.1) Chloride Level 106 mmol/L (98-107) Carbon Dioxide Level 24 mmol/L (21-32) Anion Gap 11 (6-14) Blood Urea Nitrogen 37 mg/dL (7-20) Creatinine 1.7 mg/dL (0.6-1.0) Estimated GFR (Cockcroft-Gault) 36.6 BUN/Creatinine Ratio 22 (6-20) Glucose Level 92 mg/dL (70-99) Calcium Level 8.9 mg/dL (8.5-10.1) Total Bilirubin 0.4 mg/dL (0.2-1.0) Aspartate Amino Transf (AST/SGOT) 15 U/L (15-37) Alanine Aminotransferase (ALT/SGPT) 20 U/L (14-59) Alkaline Phosphatase 93 U/L (46-116) Troponin I Quantitative < 0.017 ng/mL (0.000-0.055) Total Protein 7.6 g/dL (6.4-8.2) Albumin 3.8 g/dL (3.4-5.0) Albumin/Globulin Ratio 1.0 (1.0-1.7) Glucose (Fingerstick) 93 mg/dL (70-99) 76 mg/dL (70-99) 87 mg/dL (70-99) Test 05/19/17 15:45 05/19/17 16:38 05/19/17 20:50 05/20/17 03:12 Urine Collection Type Unknown Urine Color Yellow Urine Clarity Clear Urine pH 5.0 Urine Specific [place] 1.020 Urine Protein Negative mg/dL (NEG-TRACE) Urine Glucose (UA) Negative mg/dL (NEG) Urine Ketones (Stick) Negative mg/dL (NEG) Urine Blood Negative (NEG) Urine Nitrite Negative (NEG) Urine Bilirubin Negative (NEG) Urine Urobilinogen Dipstick 0.2 mg/dL (0.2 mg/dL) Urine Leukocyte Esterase Small (NEG) Urine RBC 0 /HPF (0-2) Urine WBC 1-4 /HPF (0-4) Urine Squamous Epithelial Cells Many /LPF Urine Bacteria Few /HPF (0-FEW) Urine Hyaline Casts Few /HPF Urine Mucus Marked /LPF Glucose (Fingerstick) 100 mg/dL (70-99) 106 mg/dL (70-99) Sodium Level 141 mmol/L (136-145) Potassium Level 4.6 mmol/L (3.5-5.1) Chloride Level 107 mmol/L (98-107) Carbon Dioxide Level 24 mmol/L (21-32) Anion Gap 10 (6-14) Blood Urea Nitrogen 34 mg/dL (7-20) Creatinine 1.6 mg/dL (0.6-1.0) Estimated GFR (Cockcroft-Gault) 39.3 Glucose Level 100 mg/dL (70-99) Calcium Level 7.7 mg/dL (8.5-10.1) Troponin I Quantitative < 0.017 ng/mL (0.000-0.055) Triglycerides Level 84 mg/dL (0-150) Cholesterol Level 138 mg/dL (0-200) LDL Cholesterol, Calculated 81 mg/dL (0-100) VLDL Cholesterol, Calculated 17 mg/dL (0-40) Non-HDL Cholesterol Calculated 98 mg/dL (0-129) HDL Cholesterol 40 mg/dL (40-60) Cholesterol/HDL Ratio 3.5 Test 05/20/17 07:48 Glucose (Fingerstick) 96 mg/dL (70-99) Laboratory Tests Test 05/19/17 15:45 05/19/17 16:38 05/19/17 20:50 05/20/17 03:12 Urine Collection Type Unknown Urine Color Yellow Urine Clarity Clear Urine pH 5.0 Urine Specific [place] 1.020 Urine Protein Negative mg/dL (NEG-TRACE) Urine Glucose (UA) Negative mg/dL (NEG) Urine Ketones (Stick) Negative mg/dL (NEG) Urine Blood Negative (NEG) Urine Nitrite Negative (NEG) Urine Bilirubin Negative (NEG) Urine Urobilinogen Dipstick 0.2 mg/dL (0.2 mg/dL) Urine Leukocyte Esterase Small (NEG) Urine RBC 0 /HPF (0-2) Urine WBC 1-4 /HPF (0-4) Urine Squamous Epithelial Cells Many /LPF Urine Bacteria Few /HPF (0-FEW) Urine Hyaline Casts Few /HPF Urine Mucus Marked /LPF Glucose (Fingerstick) 100 mg/dL (70-99) 106 mg/dL (70-99) Sodium Level 141 mmol/L (136-145) Potassium Level 4.6 mmol/L (3.5-5.1) Chloride Level 107 mmol/L (98-107) Carbon Dioxide Level 24 mmol/L (21-32) Anion Gap 10 (6-14) Blood Urea Nitrogen 34 mg/dL (7-20) Creatinine 1.6 mg/dL (0.6-1.0) Estimated GFR (Cockcroft-Gault) 39.3 Glucose Level 100 mg/dL (70-99) Calcium Level 7.7 mg/dL (8.5-10.1) Troponin I Quantitative < 0.017 ng/mL (0.000-0.055) Triglycerides Level 84 mg/dL (0-150) Cholesterol Level 138 mg/dL (0-200) LDL Cholesterol, Calculated 81 mg/dL (0-100) VLDL Cholesterol, Calculated 17 mg/dL (0-40) Non-HDL Cholesterol Calculated 98 mg/dL (0-129) HDL Cholesterol 40 mg/dL (40-60) Cholesterol/HDL Ratio 3.5 Test 05/20/17 07:48 Glucose (Fingerstick) 96 mg/dL (70-99) Medications Current Medications Aspirin (Children'S Aspirin) 324 mg 1X ONCE PO Last administered on 05/18/17 19:18; Start 05/18/17 at 18:00; Stop 05/18/17 at 18:02; Status DC Acetaminophen/ Hydrocodone Bitart (Lortab 7.5/325) 1 tab PRN Q4HRS PRN PO PAIN ; Start 05/18/17 at 18:45; Stop 05/18/17 at 19:18; Status DC Lorazepam (Ativan) 1 mg PRN Q6HRS PRN PO ANXIETY / AGITATION Last administered on 05/19/17 20:55; Start 05/18/17 at 18:45 Aspirin (Children'S Aspirin) 81 mg DAILY PO ; Start 05/19/17 at 09:00; Stop at 09:00; Status DC Oxycodone/ Acetaminophen (Percocet 7.5/ 325) 1 tab PRN Q4HRS PRN PO PAIN Last administered on 05/20/17 10:25; Start 05/18/17 at 19:30 Aspirin (Ecotrin) 81 mg DAILY PO Last administered on 05/20/17 10:25; Start at 09:00 Atorvastatin Calcium (Lipitor) 20 mg HS PO Last administered on 05/19/17 20:54 ; Start 05/18/17 at 21:00 Cyclobenzaprine HCl (Flexeril) 10 mg TID PO Last administered on 05/20/17 10: 24; Start 05/18/17 at 21:00 Metformin HCl (Glucophage) 500 mg BIDWMEALS PO Last administered on 05/19/17 09:13; Start 05/19/17 at 08:00; Stop 05/19/17 at 15:33; Status DC Diclofenac Sodium (Voltaren) 75 mg BID PO Last administered on 05/20/17 10:25 ; Start 05/18/17 at 21:00 Gabapentin (Neurontin) 300 mg DAILY08 PO Last administered on 05/20/17 10:24; Start 05/19/17 at 08:00 Gabapentin (Neurontin) 600 mg DAILY16 PO Last administered on 05/19/17 16:01; Start 05/19/17 at 16:00 Pantoprazole Sodium (Protonix) 40 mg DAILYAC PO Last administered on 05/20/17 10:24; Start 05/19/17 at 07:30 Oxybutynin Chloride (Ditropan) 5 mg BID PO Last administered on 05/20/17 10:24 ; Start 05/18/17 at 21:00 Insulin Aspart (NovoLOG) 0-9 UNITS TIDWMEALS SQ ; Start 05/19/17 at 12:00 Dextrose (Dextrose 50%-Water Syringe) 12.5 gm PRN Q15MIN PRN IV SEE COMMENTS; Start 05/19/17 at 11:15 Morphine Sulfate 2 mg PRN Q2HR PRN IV PAIN; Start 05/19/17 at 11:15 Acetaminophen/ Hydrocodone Bitart (Lortab 5/325) 1 tab PRN Q6HRS PRN PO PAIN; Start 05/19/17 at 11:15 Acetaminophen (Tylenol) 500 mg PRN Q6HRS PRN PO MILD PAIN / TEMP; Start at 11:15 Ondansetron HCl (Zofran) 4 mg PRN Q6HRS PRN IV NAUSEA/VOMITING; Start 05/19/17 at 11:15 Sodium Chloride 1,000 ml @ 100 mls/hr Q10H IV Last administered on 05/20/17 00:41; Start 05/19/17 at 12:30 Regadenoson (Lexiscan) 0.4 mg 1X ONCE IV Last administered on 05/20/17 09:15 ; Start 05/20/17 at 08:00; Stop 05/20/17 at 08:01; Status DC Active Scripts Active Reported Diclofenac Sodium 75 Mg Tablet.dr 1 Tab PO BID Gabapentin 600 Mg Tablet 600 Mg PO DAILY16 Gabapentin 300 Mg Capsule 300 Mg PO DAILY08 Oxybutynin Chloride Er (Oxybutynin Chloride) 10 Mg Tab.er.24 1 Tab PO DAILY Atorvastatin Calcium 20 Mg Tablet 20 Mg PO HS Omeprazole 20 Mg Capsule. 1 Cap PO DAILY Metformin Hcl 500 Mg Tablet 500 Mg PO BIDWMEALS Hydrocodone-Apap 5-325 (Hydrocodone Bit/Acetaminophen) 1 Each Tablet 1 Tab PO PRN Q6HRS PRN Cyclobenzaprine Hcl 10 Mg Tablet 1 Tab PO TID Vitals/I & O Vital Sign - Last 24 Hours 05/19/17 05/19/17 05/19/17 05/19/17 15:20 16:00 16:59 19:20 Temp 97.5 97.5 Pulse 83 Resp 18 18 B/P (MAP) 111/63 (79) Pulse Ox 94 94 94 O2 Delivery Room Air Room Air Room Air Room Air 05/19/17 05/19/17 05/20/17 05/20/17 19:35 23:35 03:35 07:00 Temp 97.8 98.4 98.0 98.4 97.8 98.4 98.0 98.4 Pulse 83 97 67 86 Resp 18 18 18 19 B/P (MAP) 112/68 (83) 127/73 (91) 122/42 (68) 127/73 (91) Pulse Ox 97 96 98 98 O2 Delivery Room Air Room Air Room Air Room Air 05/20/17 05/20/17 08:00 10:25 O2 Delivery Room Air Room Air Intake and Output 05/19/17 05/19/17 05/20/17 15:00 23:00 07:00 Intake Total 120 ml 714 ml 100 ml Output Total 450 ml Balance 120 ml 714 ml -350 ml SILVIA MAJANO MD May 20, 2017 11:54
[2017-05-20] MEDS ORDERED: LIDOCAINE (700MG/PATCH) PATCH. TD ONE (12:00)
[2017-05-20 14:00] VITALS: BP 99/64
--- NOTE | 2017-05-20 14:54 | PDOC ---
SUBJECTIVE ROS CKD III doing well overall CVS: no Orthopnea, no CP RESP: no SOB, no DURHAM GI: no Nausea, no Vomiting : n Dysuria, occ Urgency OBJECTIVE Vital Signs Vital Signs Date Time Temp Pulse Resp B/P (MAP) Pulse Ox O2 Delivery O2 Flow Rate FiO2 05/20/17 14:00 97.5 111 99/64 (76) 95 Room Air 97.5 05/20/17 07:00 19 I & 0 Intake and Output 05/20/17 07:00 Intake Total 934 ml Output Total 450 ml Balance 484 ml Intake Oral 620 ml Other 314 ml Output Urine Total 450 ml # Voids 4 PHYSICAL EXAM Physical Exam GEN: Awake, Oriented x 3, In no distress EYES: Vision Unchanged, Conjunctiva Normal EN: No EN Drainage, Mucous Membranes moist NECK: no JVD, no JVP, Supple, no Thyromegaly - short thick neck CVS: S1S2, no Murmur, No Gallop, No Rub,no Edema RESP: no Rales, no Rhonchi,no Acc. Muscle Use GI: BS + ve, NO Bruit, Non Tender, Non Distended - obese : no CVA tenderness, no Suprapubic Tenderness DIAGNOSIS/ASSESSMENT Assessment & Plan LYNN: Suspect from NSAIDs - watch off of same. Current fluid and E-lyte status does not necessitate emergent need for dialysis. CKD IIi - due to OBesity, DM and Ch NSAID use cannot be rule dout. OK to D/c from renal standpoint - F/up with Dr Barker - If creat is ^ed after 4 -8 weeks off of NSAIDs then she may need to come and see us Problems: COMMENT/RELEVANT DATA Meds Current Medications Medications (Trade) Dose Ordered Sig/Daniella Start Time Stop Time Status Last Admin Dose Admin Acetaminophen (Tylenol) 500 mg PRN Q6HRS PRN 05/19/17 11:15 Acetaminophen/ Hydrocodone Bitart (Lortab 5/325) 1 tab PRN Q6HRS PRN 05/19/17 11:15 Acetaminophen/ Hydrocodone Bitart (Lortab 7.5/325) 1 tab PRN Q4HRS PRN 05/18/17 18:45 05/18/17 19:18 DC Aspirin (Children'S Aspirin) 81 mg DAILY 05/19/17 09:00 8/27/17 09:00 DC Aspirin (Ecotrin) 81 mg DAILY 05/19/17 09:00 05/20/17 10:25 81 MG Atorvastatin Calcium (Lipitor) 20 mg HS 05/18/17 21:00 05/19/17 20:54 20 MG Cyclobenzaprine HCl (Flexeril) 10 mg TID 05/18/17 21:00 05/20/17 10:24 10 MG Dextrose (Dextrose 50%-Water Syringe) 12.5 gm PRN Q15MIN PRN 05/19/17 11:15 Diclofenac Sodium (Voltaren) 75 mg BID 05/18/17 21:00 05/20/17 10:25 75 MG Gabapentin (Neurontin) 600 mg DAILY16 05/19/17 16:00 05/19/17 16:01 600 MG Insulin Aspart (NovoLOG) 0-9 UNITS TIDWMEALS 05/19/17 12:00 Lidocaine (Lidoderm) 1 patch 1X ONCE 05/20/17 12:00 05/20/17 12:01 DC 05/20/17 12:57 1 PATCH Lorazepam (Ativan) 1 mg PRN Q6HRS PRN 05/18/17 18:45 05/19/17 20:55 1 MG Metformin HCl (Glucophage) 500 mg BIDWMEALS 05/19/17 08:00 05/19/17 15:33 DC 05/19/17 09:13 500 MG Morphine Sulfate 2 mg PRN Q2HR PRN 05/19/17 11:15 Ondansetron HCl (Zofran) 4 mg PRN Q6HRS PRN 05/19/17 11:15 Oxybutynin Chloride (Ditropan) 5 mg BID 05/18/17 21:00 05/20/17 10:24 5 MG Oxycodone/ Acetaminophen (Percocet 7.5/ 325) 1 tab PRN Q4HRS PRN 05/18/17 19:30 05/20/17 10:25 1 TAB Pantoprazole Sodium (Protonix) 40 mg DAILYAC 05/19/17 07:30 05/20/17 10:24 40 MG Regadenoson (Lexiscan) 0.4 mg 1X ONCE 05/20/17 08:00 05/20/17 08:01 DC 05/20/17 09:15 0.4 MG Sodium Chloride 1,000 ml @ 100 mls/hr Q10H 05/19/17 12:30 05/20/17 00:41 100 MLS/HR Lab Laboratory Tests Test 05/19/17 15:45 05/19/17 16:38 05/19/17 20:50 05/20/17 03:12 Urine Collection Type Unknown Urine Color Yellow Urine Clarity Clear Urine pH 5.0 Urine Specific [place] 1.020 Urine Protein Negative mg/dL (NEG-TRACE) Urine Glucose (UA) Negative mg/dL (NEG) Urine Ketones (Stick) Negative mg/dL (NEG) Urine Blood Negative (NEG) Urine Nitrite Negative (NEG) Urine Bilirubin Negative (NEG) Urine Urobilinogen Dipstick 0.2 mg/dL (0.2 mg/dL) Urine Leukocyte Esterase Small (NEG) Urine RBC 0 /HPF (0-2) Urine WBC 1-4 /HPF (0-4) Urine Squamous Epithelial Cells Many /LPF Urine Bacteria Few /HPF (0-FEW) Urine Hyaline Casts Few /HPF Urine Mucus Marked /LPF Glucose (Fingerstick) 100 mg/dL (70-99) 106 mg/dL (70-99) Sodium Level 141 mmol/L (136-145) Potassium Level 4.6 mmol/L (3.5-5.1) Chloride Level 107 mmol/L (98-107) Carbon Dioxide Level 24 mmol/L (21-32) Anion Gap 10 (6-14) Blood Urea Nitrogen 34 mg/dL (7-20) Creatinine 1.6 mg/dL (0.6-1.0) Estimated GFR (Cockcroft-Gault) 39.3 Glucose Level 100 mg/dL (70-99) Calcium Level 7.7 mg/dL (8.5-10.1) Troponin I Quantitative < 0.017 ng/mL (0.000-0.055) Triglycerides Level 84 mg/dL (0-150) Cholesterol Level 138 mg/dL (0-200) LDL Cholesterol, Calculated 81 mg/dL (0-100) VLDL Cholesterol, Calculated 17 mg/dL (0-40) Non-HDL Cholesterol Calculated 98 mg/dL (0-129) HDL Cholesterol 40 mg/dL (40-60) Cholesterol/HDL Ratio 3.5 Test 05/20/17 07:48 05/20/17 14:00 Glucose (Fingerstick) 96 mg/dL (70-99) 104 mg/dL (70-99) LUL UMANA MD May 20, 2017 14:54
== END 2017-05-20 16:10 | disposition home or self-care (01) ==
LOC: ER 14:38 → 2 SOUTH 16:56
PROVIDERS: ADMIT Internal Medicine; ATTEND Internal Medicine
DX: R07.89 Other chest pain (principal); I51.7 Cardiomegaly; I12.9 Hypertensive chronic kidney disease with stage 1 through stage 4 chronic kidney disease, or unspecified chronic kidney disease; N18.3 Chronic kidney disease, stage 3 (moderate); E11.22 Type 2 diabetes mellitus with diabetic chronic kidney disease; N17.9 Acute kidney failure, unspecified; E66.01 Morbid (severe) obesity due to excess calories; M19.90 Unspecified osteoarthritis, unspecified site; D64.9 Anemia, unspecified; E78.5 Hyperlipidemia, unspecified; Z82.49 Family history of ischemic heart disease and other diseases of the circulatory system; Z83.3 Family history of diabetes mellitus; Z90.710 Acquired absence of both cervix and uterus; Z68.42 Body mass index [BMI] 45.0-49.9, adult
CPT/HCPCS: 36415; 71010; 76770; 78452; 80048; 80053; 80061; 81001; 82570; 82962; 84300; 84484; 85025; 93005; 93017; 93306; 96360; 96361; 97161; 97165; 99285; A9500; G0378; G8978; G8979; G8980; G8987; G8988; G8989; J1815; J2785; J7030; 96374; 96375; G0379

== ENCOUNTER → 2017-06-20 | Outpatient (CLI) | payer OTHER ==
[~2017-06-20] MED LIST changes: +ATOR20TA58 PO; +DICL75TA PO; +GABA-586 PO; +GABA600T2 PO; +HYDR-2758 PO; +METF500T4 PO; +OMEP20CA9 PO; +OXYB10TA PO
--- NOTE | 2017-06-21 12:16 | PAIN ---
DATE OF SERVICE: 06/20/2017 PAIN CLINIC INITIAL CONSULTATION DATE OF SERVICE: 06/20/2017 CHIEF COMPLAINT: Low back and right lower extremity pain. HISTORY OF PRESENT ILLNESS: This is a 62-year-old female who presents with history of pain in the low back and right lower extremity for several years, increasing over the past 6 months or so. The patient reports that it has been getting worse with activity, standing, walking. She has had some pain for several years in the region, but much worse over the past 6 months or so. The patient reports it is across the entire low back radiating to posterior gluteus, posterior thigh, lateral thigh, medial lower leg and into the great toe and second toe on the right side and the foot. The patient reports it is stabbing and sharp, aching, dull, sometimes cramping and radiating as described into the right lower extremity. No significant pain on the left side. The patient reports it awakens him from sleep at night, at least once or twice at night, does not affect her bowel or bladder control, but does affect her ability to walk significantly. She has been walking favoring her right lower extremity and putting more weight on her left side, which is causing some left knee pain as a consequence. The patient did have MRI scan of lumbar spine showing degenerative changes throughout the lumbar spine with moderate to severe left greater than right neural foraminal stenosis at L4-L5 and mild central spinal canal stenosis at L5-S1 as well. The patient reports her disability rating from 0 to 10, 10 being the worst, is a 10 with family and home responsibilities and recreation, 1 with social activity, 2 with occupation and a 1 with self care and life support activities. The patient has had physical therapy approximately 6 weeks worth in March of this year, which was only helpful to about 10%. The patient reports her back felt more mobile, but the pain has not changed with radiating pain into the right lower extremity as noted after the physical therapy. The patient is also taking [id number] Advil and Motrin. She has tried Percocet as well as lorazepam, which does decrease the pain to a moderate extent, about 50% only. She is also taking diclofenac, which was not decreasing the pain and stopped this as well. PAST MEDICAL HISTORY: Significant for hypertension, diabetes type 2, arthritis. PREVIOUS SURGERY: Include a previous hysterectomy and x 2 in 1974 and 1978. CURRENT MEDICATIONS: Include gabapentin, oxybutynin, atorvastatin, metformin, cyclobenzaprine, omeprazole, diclofenac, which she recently stopped. ALLERGIES: The patient has no known drug allergies. FAMILY HISTORY: Significant for no major medical problems or conditions that she is aware of. SOCIAL HISTORY: The patient does not smoke, does not drink alcohol. She is single, lives locally in [place], has 2 children living at home and grandchildren as well and is currently retired. REVIEW OF SYSTEMS: The patient's review of systems is positive for those items mentioned in history of present illness. All systems reviewed and otherwise negative. It is complete, full and well documented on the patient's chart. PHYSICAL EXAMINATION: VITAL SIGNS: The patient's blood pressure is 147/89, pulse is 94, respirations 18, temperature 97.4 degrees Fahrenheit, height is 5 feet 2 inches, weight is 247 pounds. GENERAL: The patient is awake, alert, oriented, appropriate, very pleasant demeanor. HEENT: Head shows normocephalic, atraumatic. Extraocular movements are intact, symmetrical. Oral cavity, mucous membranes are moist and pink. Dentition is intact. NECK: Shows anterior throat supple without palpable lymphadenopathy noted. Swallow reflex is symmetrical. CHEST: Shows normal on inspection. Breath sounds are clear to auscultation bilaterally. HEART: Shows S1 and S2 clear. No murmurs are auscultated. ABDOMEN: Obese, soft, nontender, nondistended. No palpable organomegaly. No rebound or guarding demonstrated. BACK: Shows spine grossly midline. Slight exaggeration of thoracic kyphosis and mild flattening of lumbar lordotic curvature. No previous bruises, lesions, rashes or scars are noted. Lumbar paraspinous musculature shows symmetrical with inspection and shows some moderate tenderness with palpation throughout the upper, middle and lower distribution. Also in the low thoracic paraspinous, it is diffusely tender bilaterally as well. No tenderness over the sacrum or sacroiliac regions. The patient shows good rotation and motion of lumbar spine, both laterally as well as extension and flexion greater than 10 degrees right and left followed by extension greater than 10 degrees, forward flexion 45 degrees without significant pain reported. The patient's lower extremities showed deep tendon reflexes 1+ in the patellar and tendo calcaneus tendons are equal. Motor exam is approximately 4 on a scale of 5, but symmetrical with dorsiflexion, extension, quadriceps and hamstring flexion. Peripheral pulses are 1+ posterior tibial and dorsalis pedis pulses. No peripheral edema is noted. No clubbing or cyanosis. Lower extremities are warm and dry to touch, equal in color and appearance. The patient's sharp and dull discrimination is intact except for the medial aspect of the right foot, which has decreased sharp and dull discrimination over the lateral and anterior aspect of the great toe and second toe and the medial aspect of the arch of the foot, left side is intact throughout. The patient's straight leg raise is noted to be positive on the right at about 40 degrees with decreased knee flexion, left side is negative. Gaenslen's and Adrian's maneuvers are negative bilaterally. The patient is able to stand, stand on her toes, but has difficulty and she loses balance very quickly trying to put all of her weight on her right leg. She is walking with a significant limping gait favoring the right lower extremity, not using any assistive devices; however, she is holding on to her son's arm who accompanies her to visit today. IMPRESSION: 1. This is a 62-year-old female with a long history of low back and lower extremity pain in the right leg in a radicular fashion following the L4-L5 dermatome. 2. MRI scan of lumbar spine as noted. 3. Hypertension. 4. Diabetes. 5. Arthritis. PLAN: Options were discussed with the patient including conservative medical management, physical therapy, interventional techniques and she would like to pursue interventional techniques as she has already done physical therapy for about 5 weeks without significant benefit, still doing some stretching and strengthening exercises on her own at home and we encouraged her to continue this. We did discuss the lumbar epidural steroid injection using description as well as anatomical models to describe the procedure. The patient will wait for preauthorization of her insurance provider and we will plan on proceeding with this once this is obtained. In the meantime, we will try Medrol Dosepak. The patient was given instruction as well as side effects to be aware of with the medication and will follow up in approximately one week and we will plan on lumbar epidural steroid injection at that time. DAKOTA SOOD MD DR: CIRA/elizabeth JOB#: [id number] / [id number] ARVIND Interiano MD
== END | disposition home or self-care (01) ==
LOC: PNCL 10:10
PROVIDERS: ATTEND Anesthesiology
DX: M48.07 Spinal stenosis, lumbosacral region (principal); I10 Essential (primary) hypertension; E11.9 Type 2 diabetes mellitus without complications; M79.604 Pain in right leg; Z79.84 Long term (current) use of oral hypoglycemic drugs; Z90.710 Acquired absence of both cervix and uterus
CPT/HCPCS: 99214

== ENCOUNTER → 2017-07-04 | Outpatient (CLI) | payer OTHER ==
[~2017-07-04] MED LIST changes: +IOHEXOL 180 MG/ML 10 ML VIAL. ONE; +methylPREDNISolone ACETATE 40 MG/ML VIAL. ONE; +methylPREDNISolone ACETATE 80 MG/ML VIAL. ONE
--- NOTE | 2017-07-04 11:13 | PAIN ---
DATE OF SERVICE: 07/04/2017 PROGRESS NOTE FOR PAIN CLINIC DIAGNOSES: Lumbar radiculopathy with lumbar spinal stenosis and lumbar degenerative disk disease. HISTORY OF PRESENT ILLNESS: The patient is a 62-year-old female who returns for followup status post previous evaluation and preauthorization and returns today with that authorization for a lumbar epidural steroid injection. The patient reports still continued pain in the right lower extremity and low back. Medrol Dosepak helped to some extent while she was taking by about 25%. The patient reports pain returned and is now in the low back, right leg, posterior gluteus, posterolateral thigh, lateral and medial thigh to the medial knee and medial lower leg. The patient reports is a 9 or 10 on a scale of 10 at its worst and 9 on average and is 9 at least and is 9 today. The patient reports it is becoming unbearable, shooting and aching, dull, also some tight sensation in the right leg as well. The patient reports it is much worse with walking and standing, better with sitting down or lying down. Does not awaken her from sleep, she sleeps about 6 hours at a time. PHYSICAL EXAMINATION: VITAL SIGNS: The patient's blood pressure is 134/87, pulse 69, respirations 18, temperature 98.0 degrees Fahrenheit. Height is 5 feet 2 inches and weight is 246 pounds. GENERAL: The patient is awake, alert, oriented, appropriate, very pleasant demeanor. HEENT: Head shows normocephalic and atraumatic. Extraocular movements are intact and symmetrical. Oral cavity shows mucous membranes moist and pink. Dentition intact. NECK: Shows anterior throat supple without palpable lymphadenopathy noted. Swallow reflex is symmetrical. CHEST: Shows normal on inspection. Breath sounds are clear to auscultation bilaterally. HEART: Shows S1 and S2 clear. ABDOMEN: Soft, nontender and nondistended. No palpable organomegaly is noted. BACK: Shows spine grossly in the midline. Slight exaggeration of thoracic kyphosis, some mild flattening of lumbar lordotic curvature. Lumbar paraspinous musculature shows symmetrical and on inspection and with palpation shows some moderate tenderness in the low lumbar distribution diffusely bilaterally without radiation. EXTREMITIES: Lower extremities showed deep tendon reflexes 1+ in the patellar and tendo calcaneus tendons are equal. Motor exam is 4 on a scale of 5, but equal and symmetrical with dorsiflexion and extension bilaterally. Peripheral pulses are 1+ posterior tibial. Options were discussed with the patient and the patient's old chart was reviewed as her current medication regimen updated. Current review of systems updated today as well and we will proceed with a lumbar epidural steroid injection today, is the first in this series with fluoroscopic guidance. Risks were again discussed including but not limited to bleeding, infection, possibility of epidural hematoma, subsequent neurologic compromise, dural puncture, headaches, spinal cord and/or nerve damage, side effects of steroid medication and poor results regarding pain control. The patient understands and wishes to proceed. The patient will return to clinic in approximately 2 weeks for followup, was counseled on return appointment, activity level and side effects to be aware of. DIAGNOSIS: Lumbar radiculopathy with lumbar spinal stenosis, lumbar degenerative disease. PROCEDURE: Lumbar epidural steroid injection in translaminar approach, L4-L5 level using C-arm fluoroscopic guidance under sterile prep and drape using local anesthetic. MEDICATION INJECTED: A total of 120 mg of Depo-Medrol plus 10 mL of preservative-free normal saline and 2 mL of Isovue for contrast. CONDITION AT DISCHARGE: Stable. The patient tolerated the procedure well, had no complications. DAKOTA SOOD MD DR: CIRA/nts JOB#: [id number] / [id number]
== END | disposition home or self-care (01) ==
LOC: PNCL 09:10
PROVIDERS: ATTEND Anesthesiology
DX: M51.16 Intervertebral disc disorders with radiculopathy, lumbar region (principal); M48.061 Spinal stenosis, lumbar region without neurogenic claudication; I10 Essential (primary) hypertension; E11.9 Type 2 diabetes mellitus without complications; F41.9 Anxiety disorder, unspecified; Z86.39 Personal history of other endocrine, nutritional and metabolic disease; Z87.39 Personal history of other diseases of the musculoskeletal system and connective tissue
CPT/HCPCS: 62323; J1030; J1040

== ENCOUNTER → 2017-10-09 | Outpatient (CLI) | payer OTHER ==
[2017-10-09] MEDS: IOHEXOL 240 MG/ML 50ML VIAL. PO (09:35)
[2017-10-09] MEDS: IOHEXOL 300 MG/ML 100ML VIAL. IV (10:03)
== END | disposition home or self-care (01) ==
LOC: KCIC CT 08:44
DX: M48.05 Spinal stenosis, thoracolumbar region (principal); M47.895 Other spondylosis, thoracolumbar region; Z90.710 Acquired absence of both cervix and uterus
CPT/HCPCS: 74177; 82565; Q9966; Q9967

== ENCOUNTER → 2017-10-24 | Outpatient (CLI) | payer OTHER | END | disposition home or self-care (01) | LOC: PNCL 10:58 | DX: M51.16 Intervertebral disc disorders with radiculopathy, lumbar region (principal); M48.061 Spinal stenosis, lumbar region without neurogenic claudication | CPT/HCPCS: G0463 ==

== ENCOUNTER → 2017-10-25 | Outpatient (CLI) | payer OTHER ==
[2017-10-25] MEDS: IOHEXOL 300 MG/ML 100ML VIAL. IV ×2 (09:06)
== END | disposition home or self-care (01) ==
LOC: KCIC CT 08:32
DX: E27.9 Disorder of adrenal gland, unspecified (principal); K80.20 Calculus of gallbladder without cholecystitis without obstruction; N20.0 Calculus of kidney; J98.11 Atelectasis
CPT/HCPCS: 74170; Q9967

== ENCOUNTER → 2017-11-13 | Outpatient (CLI) | payer OTHER ==
[~2017-11-13] MED LIST changes: -ATOR20TA58 PO; -CYCL10TA2 PO; -DICL75TA PO; -GABA-586 PO; -GABA600T2 PO; -HYDR-2758 PO; -HYDR-971 PO; +IOHEXOL 180 MG/ML 10 ML VIAL.; -IOHEXOL 180 MG/ML 10 ML VIAL. ONE; -METF500T4 PO; -METH-37 PO; -OMEP20CA9 PO; -OXYB10TA PO; -PRED20TA PO; +methylPREDNISolone ACETATE 40 MG/ML VIAL.; -methylPREDNISolone ACETATE 40 MG/ML VIAL. ONE; +methylPREDNISolone ACETATE 80 MG/ML VIAL.; -methylPREDNISolone ACETATE 80 MG/ML VIAL. ONE
== END | disposition home or self-care (01) ==
LOC: PNCL 09:18
DX: M51.16 Intervertebral disc disorders with radiculopathy, lumbar region (principal); M48.061 Spinal stenosis, lumbar region without neurogenic claudication; E11.9 Type 2 diabetes mellitus without complications; F41.9 Anxiety disorder, unspecified; Z98.890 Other specified postprocedural states; Z87.39 Personal history of other diseases of the musculoskeletal system and connective tissue
CPT/HCPCS: 62323; J1030; J1040; Q9965

== ENCOUNTER → 2018-02-13 | Outpatient (CLI) | payer OTHER ==
[~2018-02-13] MED LIST changes: +LIDOCAINE 1% PF 2 ML VIAL.
== END | disposition home or self-care (01) ==
LOC: PNCL 09:19
DX: M51.16 Intervertebral disc disorders with radiculopathy, lumbar region (principal); M48.061 Spinal stenosis, lumbar region without neurogenic claudication; I10 Essential (primary) hypertension; E11.9 Type 2 diabetes mellitus without complications; F41.9 Anxiety disorder, unspecified; Z98.890 Other specified postprocedural states; M19.90 Unspecified osteoarthritis, unspecified site; Z82.49 Family history of ischemic heart disease and other diseases of the circulatory system; Z80.49 Family history of malignant neoplasm of other genital organs
CPT/HCPCS: 62323; J1030; J1040; Q9965

== ENCOUNTER → 2018-03-06 | Outpatient (CLI) | payer OTHER | END | disposition home or self-care (01) | LOC: PNCL 09:27 | DX: M51.16 Intervertebral disc disorders with radiculopathy, lumbar region (principal); M48.061 Spinal stenosis, lumbar region without neurogenic claudication; M17.11 Unilateral primary osteoarthritis, right knee | CPT/HCPCS: 99212 ==

== ENCOUNTER → 2018-03-20 | Outpatient (CLI) | payer OTHER | LOC: PNCL 09:31 | DX: M51.16 Intervertebral disc disorders with radiculopathy, lumbar region (principal); M48.061 Spinal stenosis, lumbar region without neurogenic claudication; M17.11 Unilateral primary osteoarthritis, right knee; I10 Essential (primary) hypertension; M19.90 Unspecified osteoarthritis, unspecified site; E11.9 Type 2 diabetes mellitus without complications; F41.9 Anxiety disorder, unspecified; Z98.890 Other specified postprocedural states; Z80.8 Family history of malignant neoplasm of other organs or systems; Z82.49 Family history of ischemic heart disease and other diseases of the circulatory system; Z79.899 Other long term (current) drug therapy; Z79.84 Long term (current) use of oral hypoglycemic drugs | CPT/HCPCS: 62323; J1030; J1040; Q9965 ==

== ENCOUNTER → 2018-04-14 | Outpatient (CLI) | payer MEDICARE ==
[2018-04-14] MEDS: IOHEXOL 300 MG/ML 100ML VIAL. IV (09:56)
[2018-04-14 10:43] LABS: ISTAT CREATININE 0.9 mg/dL (0.6-1.1)
== END | disposition home or self-care (01) ==
LOC: KCIC CT 08:59
DX: E27.8 Other specified disorders of adrenal gland (principal); M47.896 Other spondylosis, lumbar region; N20.0 Calculus of kidney; K80.80 Other cholelithiasis without obstruction; I12.9 Hypertensive chronic kidney disease with stage 1 through stage 4 chronic kidney disease, or unspecified chronic kidney disease; E11.22 Type 2 diabetes mellitus with diabetic chronic kidney disease; N18.3 Chronic kidney disease, stage 3 (moderate); E78.5 Hyperlipidemia, unspecified; R91.8 Other nonspecific abnormal finding of lung field
CPT/HCPCS: 74170; 82565; Q9967

== ENCOUNTER 2018-11-30 10:48 | Inpatient (IN) | payer MEDICARE ==
[~2018-11-30] VITALS: Ht 157.5 cm; Wt 108.1 kg
[~2018-11-30 10:48] MED LIST changes: +ATOR20TA58 PO; +CYCL10TA2 PO; +DICL75TA PO; +GABA300C18 PO; +GABA600T7 PO; +HYDR-2761 PO; +HYDR-3164 PO; -IOHEXOL 180 MG/ML 10 ML VIAL.; -LIDOCAINE 1% PF 2 ML VIAL.; +METF500T16 PO; +METH-37 PO; +OMEP20CA10 PO; +OXYB10TA PO; +PRED20TA PO; -methylPREDNISolone ACETATE 40 MG/ML VIAL.; -methylPREDNISolone ACETATE 80 MG/ML VIAL.
[2018-11-30 11:13] LABS: BASO # 0.1 x10^3/uL (0.0-0.2); BASO % 1 % (0-3); EOS # 0.2 x10^3/uL (0.0-0.7); EOS % 2 % (0-3); HEMOGLOBIN 13.4 g/dL (12.0-15.5); LYMPH # 2.1 x10^3/uL (1.0-4.8); LYMPH % 23 % (24-48); MEAN CORPUSCULAR HEMOGLOBIN 30 pg (25-35); MEAN CORPUSCULAR HGB CONC 33 g/dL (31-37); MEAN CORPUSCULAR VOLUME 93 fL (79-100); MONO # 0.4 x10^3/uL (0.0-1.1); MONO % 5 % (0-9); NEUT # 6.5 x10^3uL (1.8-7.7); NEUT % 69 % (31-73); PLATELET COUNT 324 x10^3/uL (140-400); RED BLOOD COUNT 4.39 x10^6/uL (3.50-5.40); RED CELL DISTRIBUTION WIDTH 13.8 % (11.5-14.5); WHITE BLOOD COUNT 9.3 x10^3/uL (4.0-11.0)
[2018-11-30] MEDS ORDERED: NITROGLYCERIN SUBLINGUAL 0.4 MG BOTTLE OF 25. SL PRN (11:15)
[2018-11-30] MEDS ORDERED: ASPIRIN CHEWABLE 81 MG TABLET. PO ONE (11:15)
[2018-11-30 11:22] LABS: CALCIUM 9.2 mg/dL (8.5-10.1); GFR 67.3; POTASSIUM 3.6 mmol/L (3.5-5.1)
[2018-11-30 11:28] LABS: ALBUMIN 3.7 g/dL (3.4-5.0); ALBUMIN/GLOBULIN RATIO 0.9 (1.0-1.7); MAGNESIUM 1.5 mg/dL (1.8-2.4); TOTAL BILIRUBIN 0.7 mg/dL (0.2-1.0); TOTAL PROTEIN 7.6 g/dL (6.4-8.2)
[2018-11-30 11:44] LABS: BILIRUBIN,URINE NEGATIVE (NEG); CLARITY,URINE CLEAR; COLOR,URINE YELLOW; NITRITE,URINE NEGATIVE (NEG); PROTEIN,URINE NEGATIVE (NEG-TRACE)
[2018-11-30 12:05] LABS: BACTERIA,URINE MODERATE /HPF (0-FEW); RBC,URINE OCC /HPF (0-2); SQUAMOUS EPITHELIAL CELL,UR MOD /LPF
--- NOTE | 2018-11-30 12:21 | PHYS DOC ---
Past Medical History Past Medical History: Arthritis, Diabetes-Type II, High Cholesterol, Hypertension Past Surgical History: No Surgical History, , Hysterectomy, Tonsillectomy Alcohol Use: None Drug Use: None Adult General Chief Complaint Chief Complaint: CHEST PAIN HPI HPI 63-year-old female presents to ER via POV with complaints of one week history of left-sided chest pain. Patient states last night the pain increased with radiation into the left side neck and right arm. Patient states for the past week she is been treating herself with fxov-kak-laomazd gas and indigestion medication with no relief in symptoms. Patient states last night she had nausea with 1 episode of vomiting. Patient states she did have 2 episodes of diarrhea. She denies any fever, urinary symptoms, or increased swelling as she has chronic pedal edema. Patient denies any recent flu or cold-like illness. She denies any recent travel. Patient denies being in a daily smoker or alcohol intake. Patient is anxious and tearful during initial exam with concerns as her brother had an MA in his 70s. Patient states she did have normal stress tests approximately 6 months ago. Pt denies any previous heart attacks or stents. Review of Systems Review of Systems Constitutional: Denies fever or chills [] Eyes: Denies change in visual acuity, redness, or eye pain [] HENT: Denies nasal congestion or sore throat [] Respiratory: Denies cough or shortness of breath [] Cardiovascular: Reports left-sided chest pain radiating into left side neck. Patient states she has right-sided arm pain which initially she reported was new however during discussion patient reports she's had chronic right arm pain for years GI: Reports N/V/D with mid abd pain- 1 episode vomiting and 2 episodes diarrhea last night. Denies blood in emesis/stool : Denies dysuria or hematuria [] Musculoskeletal: Denies back pain. Reports lt side neck pain and rt shoulder pain- denies injuries Integument: Denies rash or skin lesions. Reports chronic swelling in bilat. LEs no acute changes Neurologic: Denies headache, focal weakness or sensory changes. Denies dizziness Endocrine: Denies polyuria or polydipsia [] Psych: Reports anxiety- denies SI All other systems were reviewed and found to be within normal limits, except as documented in this note. Current Medications Current Medications Current Medications Medications (Trade) Dose Ordered Sig/Daniella Start Time Stop Time Status Last Admin Dose Admin Aspirin (Children'S Aspirin) 324 mg 1X ONCE 11/30/18 11:15 11/30/18 11:16 DC 11/30/18 11:17 324 MG Nitroglycerin (Nitrostat) 0.4 mg PRN Q5MIN PRN 11/30/18 11:15 12/02/18 17:49 DC 11/30/18 11:18 0.4 MG Allergies Allergies Physical Exam Physical Exam Constitutional: Well developed, well nourished, mild distress with anxiety- she is tearful during exam, non-toxic appearance. [] HENT: Normocephalic, atraumatic, oropharynx moist, no oral exudates, nose normal. [] Eyes: Pupils equal, conjunctiva normal, no discharge. [] Neck: Normal range of motion, no tenderness, supple, no stridor. [] Cardiovascular: Heart rate regular rhythm, no murmur [] Lungs & Thorax: Bilateral breath sounds clear to auscultation. Resp. equal/ nonlabored Abdomen: Bowel sounds normal, soft, no tenderness, no masses, no pulsatile masses. [] Skin: Warm, dry, no erythema, no rash. [] Back: No tenderness, no CVA tenderness. [] Extremities: No tenderness, no cyanosis, no clubbing, ROM intact, no edema. [] Neurologic: Alert and oriented X 3, normal motor function, normal sensory function, no focal deficits noted. [] Psychologic: Affect normal, judgement normal, anxious- denies SI. No uncontrollable behavior Current Patient Data Vital Signs Vital Signs Date Time Temp Pulse Resp B/P (MAP) Pulse Ox O2 Delivery O2 Flow Rate FiO2 11/30/18 12:00 62 134/75 (94) 97 Room Air 11/30/18 11:00 97.3 20 97.3 Lab Values Laboratory Tests Test 11/30/18 11:09 11/30/18 11:28 White Blood Count 9.3 x10^3/uL (4.0-11.0) Red Blood Count 4.39 x10^6/uL (3.50-5.40) Hemoglobin 13.4 g/dL (12.0-15.5) Hematocrit 41.0 % (36.0-47.0) Mean Corpuscular Volume 93 fL (79-100) Mean Corpuscular Hemoglobin 30 pg (25-35) Mean Corpuscular Hemoglobin Concent 33 g/dL (31-37) Red Cell Distribution Width 13.8 % (11.5-14.5) Platelet Count 324 x10^3/uL (140-400) Neutrophils (%) (Auto) 69 % (31-73) Lymphocytes (%) (Auto) 23 % (24-48) L Monocytes (%) (Auto) 5 % (0-9) Eosinophils (%) (Auto) 2 % (0-3) Basophils (%) (Auto) 1 % (0-3) Neutrophils # (Auto) 6.5 x10^3uL (1.8-7.7) Lymphocytes # (Auto) 2.1 x10^3/uL (1.0-4.8) Monocytes # (Auto) 0.4 x10^3/uL (0.0-1.1) Eosinophils # (Auto) 0.2 x10^3/uL (0.0-0.7) Basophils # (Auto) 0.1 x10^3/uL (0.0-0.2) Sodium Level 146 mmol/L (136-145) H Potassium Level 3.6 mmol/L (3.5-5.1) Chloride Level 106 mmol/L (98-107) Carbon Dioxide Level 25 mmol/L (21-32) Anion Gap 15 (6-14) H Blood Urea Nitrogen 14 mg/dL (7-20) Creatinine 1.0 mg/dL (0.6-1.0) Estimated GFR (Cockcroft-Gault) 67.3 BUN/Creatinine Ratio 14 (6-20) Glucose Level 125 mg/dL (70-99) H Calcium Level 9.2 mg/dL (8.5-10.1) Magnesium Level 1.5 mg/dL (1.8-2.4) L Total Bilirubin 0.7 mg/dL (0.2-1.0) Aspartate Amino Transferase (AST) 15 U/L (15-37) Alanine Aminotransferase (ALT) 17 U/L (14-59) Alkaline Phosphatase 89 U/L (46-116) Troponin I Quantitative < 0.017 ng/mL (0.000-0.055) ZE-Qkc-G-Type Natriuretic Peptide 113 pg/mL (0-124) Total Protein 7.6 g/dL (6.4-8.2) Albumin 3.7 g/dL (3.4-5.0) Albumin/Globulin Ratio 0.9 (1.0-1.7) L Urine Collection Type Unknown Urine Color Yellow Urine Clarity Clear Urine pH 5.0 Urine Specific [place] 1.015 Urine Protein Negative mg/dL (NEG-TRACE) Urine Glucose (UA) Negative mg/dL (NEG) Urine Ketones (Stick) Negative mg/dL (NEG) Urine Blood Small (NEG) Urine Nitrite Negative (NEG) Urine Bilirubin Negative (NEG) Urine Urobilinogen Dipstick 1.0 mg/dL (0.2 mg/dL) Urine Leukocyte Esterase Trace (NEG) Urine RBC Occ /HPF (0-2) Urine WBC 1-4 /HPF (0-4) Urine Squamous Epithelial Cells Mod /LPF Urine Bacteria Moderate /HPF (0-FEW) Urine Mucus Mod /LPF Laboratory Tests 11/30/18 11:09 Laboratory Tests 11/30/18 11:09 Microbiology 11/30/18 Urine Culture - Final, Complete 11/30/18 Urine Culture Result 1 (CLARA) - Final, Complete EKG EKG EKG obtained 11/30/18 at [address] Quintanilla Sinus rhythm T wave abnorm. Rate 89 No STEMI Radiology/Procedures Radiology/Procedures []PROCEDURE: CHEST PA & LATERAL PA and lateral chest HISTORY: Left-sided chest pain, dizziness PA and lateral views were taken of the chest. There is no pleural effusion. There is no confluent infiltrate. There is scarring along the left heart border. IMPRESSION: 1. No acute infiltrates. Electronically signed by: Derrick Serrato MD (11/30/2018 12:41 PM) [facility] DICTATED and SIGNED BY: DERRICK SERRATO MD DATE: 11/30/18 1241 Course & Med Decision Making Course & Med Decision Making Pertinent Labs and Imaging studies reviewed. (See chart for details) 1110: Dr. Salas, hospitalist was in ER and so discussed pt's case and plans for admit for further monitoring. Will admit to their services and his cardiology consult with admit orders. Admission plan was discussed with patient and she is agreeable with plan. Patient was given 324 mg aspirin while in the ER and sublingual nitroglycerin. EKG with no acute ST elevation or STEMI and troponin <0.017. 1215: Pt reports her CP has improved since Nitro- currently has c/o nausea. She has had no vomiting episodes. Test results were discussed. Patient has been admitted to hospitalist for further care. She remains on personnel monitor currently sinus bradycardia with heart rate 59 no ischemic changes on monitor. Blood pressure 121/70 02 sat 99% on room air. Will provide patient with dose of IV Zofran. Dragon Disclaimer Dragon Disclaimer This electronic medical record was generated, in whole or in part, using a voice recognition dictation system. Departure Departure Impression: Primary Impression: Chest pain Disposition: ADMITTED INPATIENT Admitting Physician: Mily Salas Condition: STABLE Referrals: ARVIND CHRISTIANSEN MD (PCP) YOLI GONZALEZ APRN Nov 30, 2018 12:20
--- NOTE | 2018-11-30 12:44 | RAD ---
PA and lateral chest HISTORY: Left-sided chest pain, dizziness PA and lateral views were taken of the chest. There is no pleural effusion. There is no confluent infiltrate. There is scarring along the left heart border. IMPRESSION: 1. No acute infiltrates. Electronically signed by: Derrick Serrato MD (11/30/2018 12:41 PM) [facility]
[2018-11-30 12:50] VITALS: BP 156/89
[2018-11-30] MEDS ORDERED: ONDANSETRON PF 4 MG/2 ML VIAL. IV ONE (13:00)
--- NOTE | 2018-11-30 13:23 | HP ---
ADMIT DATE: 11/30/2018 CHIEF COMPLAINT: Chest pain. HISTORY OF PRESENT ILLNESS: The patient is a pleasant 63-year-old female, presented to the ER with chest pain. She states it has been going on for about a week. She has been taking ponq-eyk-fomkbgh meds thinking it might be reflux. She states her family member did the same thing, and he actually ended up having a heart attack. Rates her symptoms at 9/10. She has associated nausea. It has been occurring for at least 7 days, also radiates to the arms. I discussed the case with ER physician. We are going to admit the patient and consult Cardiology. PAST MEDICAL HISTORY: Hypertension and obesity. ALLERGIES: None. FAMILY HISTORY: Hypertension and coronary artery disease. SOCIAL HISTORY: She does not drink, smoke or take drugs. She is retired. MEDICATIONS: Reviewed, please refer to the MRAD. REVIEW OF SYSTEMS: GENERAL: No history of weight change, weakness or fevers. SKIN: No bruising, hair changes or rashes. EYES: No blurred, double or loss of vision. NOSE AND THROAT: No history of nosebleeds, hoarseness or sore throat. HEART: She complains of chest pain. LUNGS: Denies cough, hemoptysis, wheezing or shortness of breath. GASTROINTESTINAL: Denies changes in appetite, nausea, vomiting, diarrhea or constipation. GENITOURINARY: No history of frequency, urgency, hesitancy or nocturia. NEUROLOGIC: Denies history of numbness, tingling, tremor or weakness. PSYCHIATRIC: No history of panic, anxiety or depression. ENDOCRINE: No history of heat or cold intolerance, polyuria or polydipsia. EXTREMITIES: Denies muscle weakness, joint pain, pain on walking or stiffness. PHYSICAL EXAMINATION: VITAL SIGNS: Temperature afebrile, pulse 98, respirations 18, blood pressure 134/90. GENERAL: She is alert, cooperative. Her daughter is present. HEART: Normal S1, S2. LUNGS: Clear. ABDOMEN: Soft and obese. EXTREMITIES: Trace edema. SKIN: No rashes. ENDOCRINE: No thyromegaly. LYMPHATICS: No cervical nodes. HEMATOPOIETIC: No bruising. LABORATORY DATA: EKG shows sinus rhythm. Troponin 0. ASSESSMENT AND PLAN: Chest pain, rule out coronary artery disease. The patient has been admitted. We will check serial enzymes, serial EKGs, cardiac monitoring. Consult Cardiology, daily aspirin, p.r.n. nitro, home meds. Deep venous thrombosis prophylaxis. KAYLEE MACHADO DO DR: LILLIE/elizabeth JOB#: [id number] / [id number]
[2018-11-30] MEDS ORDERED: MAGNESIUM SULFATE 2GM 50 ML IV ONE (13:30)
--- NOTE | 2018-11-30 13:34 | PDOC2 ---
CARDIOLOGY CONSULT NOTE CHEIF COMPLAINT: Chest pain HPI: Pleasant 63-year-old woman who is known to our office and sees Dr. Kelsey coming into the hospital in the setting of chest pressure and right arm pain. She reports over the last one week or so she's had some epigastric and substernal chest discomfort which is sharp and occasionally pressure-like in nature which is rated approximately 5 out of 10. This has been certainly bothersome to her and she has tried antacids and gas relief medications without any significant improvement. She reports that at baseline she's been doing okay up until about one week ago. She was concerned due to significant family history of coronary artery disease. She denies any associated palpitations, orthopnea or PND. Upon arrival to the ER she was given a nitroglycerin sublingually and this seems to help alleviate some of her pain today. She was admitted for further evaluation and treatment. Of note she underwent a myocardial perfusion study and echocardiogram in 2017 which did not reveal any significant ischemic burden. PMHX: 1. Hypertension 2. Diabetes 3. Dyslipidemia SOCHX: No alcohol, tobacco or illicit drug use. FAMHX: Notable for coronary artery disease in her family. CURRENT MEDS: Current Medications Medications (Trade) Dose Ordered Sig/Daniella Start Time Stop Time Status Last Admin Dose Admin Aspirin (Children'S Aspirin) 324 mg 1X ONCE 11/30/18 11:15 11/30/18 11:16 DC 11/30/18 11:17 324 MG Magnesium Sulfate 50 ml @ 25 mls/hr 1X ONCE 11/30/18 13:30 11/30/18 15:29 Nitroglycerin (Nitrostat) 0.4 mg PRN Q5MIN PRN 11/30/18 11:15 11/30/18 11:18 0.4 MG Ondansetron HCl (Zofran) 4 mg 1X ONCE 11/30/18 13:00 11/30/18 13:01 DC ALLERGIES: Allergies Coded Allergies Type Severity Reaction Last Updated Verified diazepam Allergy Intermediate Unknown 11/30/18 Yes ROS: Negative for 10 out of 14 systems reviewed unless otherwise mentioned above in history of present illness PHYSICAL EXAM: Vital Signs: Vital Signs Date Time Temp Pulse Resp B/P (MAP) Pulse Ox O2 Delivery O2 Flow Rate FiO2 11/30/18 12:30 78 121/72 (88) 95 Room Air 11/30/18 11:00 97.3 20 97.3 Physical Exam: She is a obese woman in no acute distress Head and neck exam is otherwise unremarkable grossly Regular rate and rhythm without any murmurs rubs or gallops noted Neck veins are flat Lungs are clear to auscultation Obese protuberant abdomen without any obvious masses Trace lower extremity edema No focal neurologic deficits. DIAGNOSTIC TESTING: EKG today is unremarkable. Cardiac enzymes negative 2. ASSESSMENT: 1. Atypical chest pain with multiple risk factors. PLAN: 1. Discussed r/b/a to cath and MPI. She wishes to pursue conservative mgmt with MPI. Plan for MPI in a.m. -[facility]. ARABELLA LAFLEUR MD Nov 30, 2018 13:34
[2018-11-30] MEDS: GABAPENTIN 300 MG CAPSULE. PO SCH (14:54)
--- NOTE | 2018-11-30 16:52 | EKG ---
[facility] [address] [place] [address] Test Date: 2018-11-30 Test Time: 10:58:47 Pat Name: LEISA TURK Department: Room: 203 1 Gender: F Aircraft Engine Technician: : [id number] Requested By: YOLI GONZALEZ Order Number: [id number] Reading MD: Marc Andrew MD Measurements Intervals [place] Rate: 89 P: 33 WV: 186 QRS: 14 QRSD: 72 T: 171 QT: 348 QTc: 424 Interpretive Statements SINUS RHYTHM NON-SPECIFIC ST/T CHANGES Electronically Signed On 12-09-2018 22:22:12 CDT by Marc Andrew MD
[2018-11-30] MEDS: metFORMIN 500 MG TABLET PO SCH (17:00)
[2018-11-30 19:59] VITALS: BP 136/75
[2018-11-30] MEDS ORDERED: DEXTROSE 50% 25 GM / 50ML DISP.SYRIN. IV PRN (21:00)
[2018-11-30] MEDS: OXYBUTYNIN CHLORIDE 5 MG TABLET PO SCH (21:00)
[2018-11-30] MEDS: ATORVASTATIN CALCIUM 20 MG TABLET PO SCH (21:50)
[2018-11-30] MEDS: DICLOFENAC SODIUM 25 MG TABLET.DR PO SCH (21:51)
[2018-11-30 22:25] VITALS: BP 135/74
[2018-12-01 03:44] VITALS: BP 147/83
[2018-12-01 04:12] LABS: BASO # 0.1 x10^3/uL (0.0-0.2); BASO % 1 % (0-3); EOS # 0.2 x10^3/uL (0.0-0.7); EOS % 3 % (0-3); HEMATOCRIT 35.3 % (36.0-47.0); HEMOGLOBIN 11.7 g/dL (12.0-15.5); LYMPH # 2.6 x10^3/uL (1.0-4.8); LYMPH % 35 % (24-48); MEAN CORPUSCULAR HEMOGLOBIN 31 pg (25-35); MEAN CORPUSCULAR HGB CONC 33 g/dL (31-37); MEAN CORPUSCULAR VOLUME 93 fL (79-100); MONO # 0.5 x10^3/uL (0.0-1.1); MONO % 7 % (0-9); NEUT # 3.9 x10^3uL (1.8-7.7); NEUT % 53 % (31-73); PLATELET COUNT 289 x10^3/uL (140-400); RED BLOOD COUNT 3.81 x10^6/uL (3.50-5.40); RED CELL DISTRIBUTION WIDTH 13.9 % (11.5-14.5); WHITE BLOOD COUNT 7.3 x10^3/uL (4.0-11.0)
[2018-12-01 04:53] LABS: CALCIUM 8.6 mg/dL (8.5-10.1); CREATININE 1.1 mg/dL (0.6-1.0); GFR 60.3; POTASSIUM 3.7 mmol/L (3.5-5.1)
[2018-12-01 07:00] VITALS: BP 146/67
--- NOTE | 2018-12-01 07:50 | RAD ---
Single view right shoulder dated 12/01/2018. Comparison made to 11/30/2018. CLINICAL INDICATION: Shoulder pain. FINDINGS: Single externally rotated view performed. Glenohumeral alignment is anatomic. No displaced fracture. No acute osseous or articular abnormality. Mild degenerative change of the AC joint. IMPRESSION: No acute findings. Electronically signed by: Conrad Wilkes MD (12/01/2018 7:47 AM) [id number]
[2018-12-01] MEDS: metFORMIN 500 MG TABLET PO SCH ×2 (08:00→17:10)
[2018-12-01] MEDS ORDERED: REGADENOSON 0.4 MG/5 ML DISP.SYRIN. IV ONE (08:45)
[2018-12-01 11:00] VITALS: BP 168/76
--- NOTE | 2018-12-01 11:00 | PDOC ---
PROGRESS NOTES History of Present Illness History of Present Illness ASSESSMENT AND PLAN: Chest pain, rule out coronary artery disease. DIABETES MORBID OBESITY admitted. serial enzymes, cvc bed serial EKGs, MPI, Consult Cardiology, daily aspirin, p.r.n. nitro, home meds. Deepvenous thrombosis prophylaxis. 34 MIN VISIT TIME Vitals Vitals Vital Signs Date Time Temp Pulse Resp B/P (MAP) Pulse Ox O2 Delivery O2 Flow Rate FiO2 12/01/18 08:00 Room Air 12/01/18 07:00 97.4 61 20 146/67 (93) 94 97.4 Physical Exam Physical Exam GENERAL: She is alert, cooperative. Her daughter is present. HEART: Normal S1, S2. LUNGS: Clear. ABDOMEN: Soft and obese. EXTREMITIES: Trace edema. SKIN: No rashes. ENDOCRINE: No thyromegaly. LYMPHATICS: No cervical nodes. General: Alert, Oriented X3, Cooperative, No acute distress Heart: Regular rate, Normal S1 Lungs: Clear Abdomen: Normal bowel sounds, Soft, No tenderness Extremities: No clubbing, No cyanosis Skin: No significant lesion Labs LABS Laboratory Tests Test 11/30/18 11:09 11/30/18 11:28 11/30/18 20:43 12/01/18 03:30 White Blood Count 9.3 x10^3/uL (4.0-11.0) 7.3 x10^3/uL (4.0-11.0) Red Blood Count 4.39 x10^6/uL (3.50-5.40) 3.81 x10^6/uL (3.50-5.40) Hemoglobin 13.4 g/dL (12.0-15.5) 11.7 g/dL (12.0-15.5) Hematocrit 41.0 % (36.0-47.0) 35.3 % (36.0-47.0) Mean Corpuscular Volume 93 fL (79-100) 93 fL (79-100) Mean Corpuscular Hemoglobin 30 pg (25-35) 31 pg (25-35) Mean Corpuscular Hemoglobin Concent 33 g/dL (31-37) 33 g/dL (31-37) Red Cell Distribution Width 13.8 % (11.5-14.5) 13.9 % (11.5-14.5) Platelet Count 324 x10^3/uL (140-400) 289 x10^3/uL (140-400) Neutrophils (%) (Auto) 69 % (31-73) 53 % (31-73) Lymphocytes (%) (Auto) 23 % (24-48) 35 % (24-48) Monocytes (%) (Auto) 5 % (0-9) 7 % (0-9) Eosinophils (%) (Auto) 2 % (0-3) 3 % (0-3) Basophils (%) (Auto) 1 % (0-3) 1 % (0-3) Neutrophils # (Auto) 6.5 x10^3uL (1.8-7.7) 3.9 x10^3uL (1.8-7.7) Lymphocytes # (Auto) 2.1 x10^3/uL (1.0-4.8) 2.6 x10^3/uL (1.0-4.8) Monocytes # (Auto) 0.4 x10^3/uL (0.0-1.1) 0.5 x10^3/uL (0.0-1.1) Eosinophils # (Auto) 0.2 x10^3/uL (0.0-0.7) 0.2 x10^3/uL (0.0-0.7) Basophils # (Auto) 0.1 x10^3/uL (0.0-0.2) 0.1 x10^3/uL (0.0-0.2) Sodium Level 146 mmol/L (136-145) 145 mmol/L (136-145) Potassium Level 3.6 mmol/L (3.5-5.1) 3.7 mmol/L (3.5-5.1) Chloride Level 106 mmol/L (98-107) 108 mmol/L (98-107) Carbon Dioxide Level 25 mmol/L (21-32) 26 mmol/L (21-32) Anion Gap 15 (6-14) 11 (6-14) Blood Urea Nitrogen 14 mg/dL (7-20) 17 mg/dL (7-20) Creatinine 1.0 mg/dL (0.6-1.0) 1.1 mg/dL (0.6-1.0) Estimated GFR (Cockcroft-Gault) 67.3 60.3 BUN/Creatinine Ratio 14 (6-20) Glucose Level 125 mg/dL (70-99) 111 mg/dL (70-99) Calcium Level 9.2 mg/dL (8.5-10.1) 8.6 mg/dL (8.5-10.1) Magnesium Level 1.5 mg/dL (1.8-2.4) Total Bilirubin 0.7 mg/dL (0.2-1.0) Aspartate Amino Transf (AST/SGOT) 15 U/L (15-37) Alanine Aminotransferase (ALT/SGPT) 17 U/L (14-59) Alkaline Phosphatase 89 U/L (46-116) Troponin I Quantitative < 0.017 ng/mL (0.000-0.055) BT-Jis-M-Type Natriuretic Peptide 113 pg/mL (0-124) Total Protein 7.6 g/dL (6.4-8.2) Albumin 3.7 g/dL (3.4-5.0) Albumin/Globulin Ratio 0.9 (1.0-1.7) Urine Collection Type Unknown Urine Color Yellow Urine Clarity Clear Urine pH 5.0 Urine Specific [place] 1.015 Urine Protein Negative mg/dL (NEG-TRACE) Urine Glucose (UA) Negative mg/dL (NEG) Urine Ketones (Stick) Negative mg/dL (NEG) Urine Blood Small (NEG) Urine Nitrite Negative (NEG) Urine Bilirubin Negative (NEG) Urine Urobilinogen Dipstick 1.0 mg/dL (0.2 mg/dL) Urine Leukocyte Esterase Trace (NEG) Urine RBC Occ /HPF (0-2) Urine WBC 1-4 /HPF (0-4) Urine Squamous Epithelial Cells Mod /LPF Urine Bacteria Moderate /HPF (0-FEW) Urine Mucus Mod /LPF Glucose (Fingerstick) 98 mg/dL (70-99) Test 12/01/18 08:07 Glucose (Fingerstick) 83 mg/dL (70-99) Comment Review of Relevant I have reviewed the following items cyn (where applicable) has been applied. Labs Laboratory Tests Test 11/30/18 11:09 11/30/18 11:28 11/30/18 20:43 12/01/18 03:30 White Blood Count 9.3 x10^3/uL (4.0-11.0) 7.3 x10^3/uL (4.0-11.0) Red Blood Count 4.39 x10^6/uL (3.50-5.40) 3.81 x10^6/uL (3.50-5.40) Hemoglobin 13.4 g/dL (12.0-15.5) 11.7 g/dL (12.0-15.5) Hematocrit 41.0 % (36.0-47.0) 35.3 % (36.0-47.0) Mean Corpuscular Volume 93 fL (79-100) 93 fL (79-100) Mean Corpuscular Hemoglobin 30 pg (25-35) 31 pg (25-35) Mean Corpuscular Hemoglobin Concent 33 g/dL (31-37) 33 g/dL (31-37) Red Cell Distribution Width 13.8 % (11.5-14.5) 13.9 % (11.5-14.5) Platelet Count 324 x10^3/uL (140-400) 289 x10^3/uL (140-400) Neutrophils (%) (Auto) 69 % (31-73) 53 % (31-73) Lymphocytes (%) (Auto) 23 % (24-48) 35 % (24-48) Monocytes (%) (Auto) 5 % (0-9) 7 % (0-9) Eosinophils (%) (Auto) 2 % (0-3) 3 % (0-3) Basophils (%) (Auto) 1 % (0-3) 1 % (0-3) Neutrophils # (Auto) 6.5 x10^3uL (1.8-7.7) 3.9 x10^3uL (1.8-7.7) Lymphocytes # (Auto) 2.1 x10^3/uL (1.0-4.8) 2.6 x10^3/uL (1.0-4.8) Monocytes # (Auto) 0.4 x10^3/uL (0.0-1.1) 0.5 x10^3/uL (0.0-1.1) Eosinophils # (Auto) 0.2 x10^3/uL (0.0-0.7) 0.2 x10^3/uL (0.0-0.7) Basophils # (Auto) 0.1 x10^3/uL (0.0-0.2) 0.1 x10^3/uL (0.0-0.2) Sodium Level 146 mmol/L (136-145) 145 mmol/L (136-145) Potassium Level 3.6 mmol/L (3.5-5.1) 3.7 mmol/L (3.5-5.1) Chloride Level 106 mmol/L (98-107) 108 mmol/L (98-107) Carbon Dioxide Level 25 mmol/L (21-32) 26 mmol/L (21-32) Anion Gap 15 (6-14) 11 (6-14) Blood Urea Nitrogen 14 mg/dL (7-20) 17 mg/dL (7-20) Creatinine 1.0 mg/dL (0.6-1.0) 1.1 mg/dL (0.6-1.0) Estimated GFR (Cockcroft-Gault) 67.3 60.3 BUN/Creatinine Ratio 14 (6-20) Glucose Level 125 mg/dL (70-99) 111 mg/dL (70-99) Calcium Level 9.2 mg/dL (8.5-10.1) 8.6 mg/dL (8.5-10.1) Magnesium Level 1.5 mg/dL (1.8-2.4) Total Bilirubin 0.7 mg/dL (0.2-1.0) Aspartate Amino Transf (AST/SGOT) 15 U/L (15-37) Alanine Aminotransferase (ALT/SGPT) 17 U/L (14-59) Alkaline Phosphatase 89 U/L (46-116) Troponin I Quantitative < 0.017 ng/mL (0.000-0.055) BX-Dkc-U-Type Natriuretic Peptide 113 pg/mL (0-124) Total Protein 7.6 g/dL (6.4-8.2) Albumin 3.7 g/dL (3.4-5.0) Albumin/Globulin Ratio 0.9 (1.0-1.7) Urine Collection Type Unknown Urine Color Yellow Urine Clarity Clear Urine pH 5.0 Urine Specific [place] 1.015 Urine Protein Negative mg/dL (NEG-TRACE) Urine Glucose (UA) Negative mg/dL (NEG) Urine Ketones (Stick) Negative mg/dL (NEG) Urine Blood Small (NEG) Urine Nitrite Negative (NEG) Urine Bilirubin Negative (NEG) Urine Urobilinogen Dipstick 1.0 mg/dL (0.2 mg/dL) Urine Leukocyte Esterase Trace (NEG) Urine RBC Occ /HPF (0-2) Urine WBC 1-4 /HPF (0-4) Urine Squamous Epithelial Cells Mod /LPF Urine Bacteria Moderate /HPF (0-FEW) Urine Mucus Mod /LPF Glucose (Fingerstick) 98 mg/dL (70-99) Test 12/01/18 08:07 Glucose (Fingerstick) 83 mg/dL (70-99) Laboratory Tests Test 11/30/18 11:09 11/30/18 11:28 11/30/18 20:43 12/01/18 03:30 White Blood Count 9.3 x10^3/uL (4.0-11.0) 7.3 x10^3/uL (4.0-11.0) Red Blood Count 4.39 x10^6/uL (3.50-5.40) 3.81 x10^6/uL (3.50-5.40) Hemoglobin 13.4 g/dL (12.0-15.5) 11.7 g/dL (12.0-15.5) Hematocrit 41.0 % (36.0-47.0) 35.3 % (36.0-47.0) Mean Corpuscular Volume 93 fL (79-100) 93 fL (79-100) Mean Corpuscular Hemoglobin 30 pg (25-35) 31 pg (25-35) Mean Corpuscular Hemoglobin Concent 33 g/dL (31-37) 33 g/dL (31-37) Red Cell Distribution Width 13.8 % (11.5-14.5) 13.9 % (11.5-14.5) Platelet Count 324 x10^3/uL (140-400) 289 x10^3/uL (140-400) Neutrophils (%) (Auto) 69 % (31-73) 53 % (31-73) Lymphocytes (%) (Auto) 23 % (24-48) 35 % (24-48) Monocytes (%) (Auto) 5 % (0-9) 7 % (0-9) Eosinophils (%) (Auto) 2 % (0-3) 3 % (0-3) Basophils (%) (Auto) 1 % (0-3) 1 % (0-3) Neutrophils # (Auto) 6.5 x10^3uL (1.8-7.7) 3.9 x10^3uL (1.8-7.7) Lymphocytes # (Auto) 2.1 x10^3/uL (1.0-4.8) 2.6 x10^3/uL (1.0-4.8) Monocytes # (Auto) 0.4 x10^3/uL (0.0-1.1) 0.5 x10^3/uL (0.0-1.1) Eosinophils # (Auto) 0.2 x10^3/uL (0.0-0.7) 0.2 x10^3/uL (0.0-0.7) Basophils # (Auto) 0.1 x10^3/uL (0.0-0.2) 0.1 x10^3/uL (0.0-0.2) Sodium Level 146 mmol/L (136-145) 145 mmol/L (136-145) Potassium Level 3.6 mmol/L (3.5-5.1) 3.7 mmol/L (3.5-5.1) Chloride Level 106 mmol/L (98-107) 108 mmol/L (98-107) Carbon Dioxide Level 25 mmol/L (21-32) 26 mmol/L (21-32) Anion Gap 15 (6-14) 11 (6-14) Blood Urea Nitrogen 14 mg/dL (7-20) 17 mg/dL (7-20) Creatinine 1.0 mg/dL (0.6-1.0) 1.1 mg/dL (0.6-1.0) Estimated GFR (Cockcroft-Gault) 67.3 60.3 BUN/Creatinine Ratio 14 (6-20) Glucose Level 125 mg/dL (70-99) 111 mg/dL (70-99) Calcium Level 9.2 mg/dL (8.5-10.1) 8.6 mg/dL (8.5-10.1) Magnesium Level 1.5 mg/dL (1.8-2.4) Total Bilirubin 0.7 mg/dL (0.2-1.0) Aspartate Amino Transf (AST/SGOT) 15 U/L (15-37) Alanine Aminotransferase (ALT/SGPT) 17 U/L (14-59) Alkaline Phosphatase 89 U/L (46-116) Troponin I Quantitative < 0.017 ng/mL (0.000-0.055) WB-Hgl-H-Type Natriuretic Peptide 113 pg/mL (0-124) Total Protein 7.6 g/dL (6.4-8.2) Albumin 3.7 g/dL (3.4-5.0) Albumin/Globulin Ratio 0.9 (1.0-1.7) Urine Collection Type Unknown Urine Color Yellow Urine Clarity Clear Urine pH 5.0 Urine Specific [place] 1.015 Urine Protein Negative mg/dL (NEG-TRACE) Urine Glucose (UA) Negative mg/dL (NEG) Urine Ketones (Stick) Negative mg/dL (NEG) Urine Blood Small (NEG) Urine Nitrite Negative (NEG) Urine Bilirubin Negative (NEG) Urine Urobilinogen Dipstick 1.0 mg/dL (0.2 mg/dL) Urine Leukocyte Esterase Trace (NEG) Urine RBC Occ /HPF (0-2) Urine WBC 1-4 /HPF (0-4) Urine Squamous Epithelial Cells Mod /LPF Urine Bacteria Moderate /HPF (0-FEW) Urine Mucus Mod /LPF Glucose (Fingerstick) 98 mg/dL (70-99) Test 12/01/18 08:07 Glucose (Fingerstick) 83 mg/dL (70-99) Medications Current Medications Aspirin (Children'S Aspirin) 324 mg 1X ONCE PO Last administered on 11/30/18at 11:17; Start 11/30/18 at 11:15; Stop 11/30/18 at 11:16; Status DC Nitroglycerin (Nitrostat) 0.4 mg PRN Q5MIN PRN SL CHEST PAIN Last administered on 11/30/18at 11:18; Start 11/30/18 at 11:15 Ondansetron HCl (Zofran) 4 mg 1X ONCE IV ; Start 11/30/18 at 13:00; Stop at 13:01; Status DC Magnesium Sulfate 50 ml @ 25 mls/hr 1X ONCE IV Last administered on 11/30/18at 14:55; Start 11/30/18 at 13:30; Stop 11/30/18 at 15:29; Status DC Atorvastatin Calcium (Lipitor) 20 mg HS PO Last administered on 11/30/18at 21:50 ; Start 11/30/18 at 21:00 Gabapentin (Neurontin) 300 mg DAILY08 PO ; Start 12/01/18 at 08:00 Diclofenac Sodium (Voltaren) 75 mg BID PO Last administered on 11/30/18at 21:51 ; Start 11/30/18 at 21:00 Gabapentin (Neurontin) 600 mg DAILY16 PO Last administered on 11/30/18at 14:54; Start 11/30/18 at 16:00 Metformin HCl (Glucophage) 500 mg BIDWMEALS PO ; Start 11/30/18 at 17:00 Oxybutynin Chloride (Ditropan) 5 mg BID PO ; Start 11/30/18 at 21:00 Dextrose (Dextrose 50%-Water Syringe) 12.5 gm PRN Q15MIN PRN IV SEE COMMENTS; Start 11/30/18 at 21:00 Regadenoson (Lexiscan) 0.4 mg 1X ONCE IV Last administered on 12/01/18at 09:28 ; Start 12/01/18 at 08:45; Stop 12/01/18 at 08:46; Status DC Active Scripts Active Reported Diclofenac Sodium 75 Mg Tablet.dr 1 Tab PO BID Gabapentin 600 Mg Tablet 600 Mg PO DAILY16 Gabapentin (Gabapentin) 300 Mg Capsule 300 Mg PO DAILY08 Oxybutynin Chloride Er (Oxybutynin Chloride) 10 Mg Tab.er.24 1 Tab PO DAILY Atorvastatin Calcium 20 Mg Tablet 20 Mg PO HS Metformin Hcl 500 Mg Tablet 500 Mg PO BIDWMEALS Vitals/I & O Vital Sign - Last 24 Hours 11/30/18 11/30/18 11/30/18 11/30/18 11:18 11:30 12:00 12:30 Pulse 76 78 62 78 B/P (MAP) 154/83 149/74 (99) 134/75 (94) 121/72 (88) Pulse Ox 97 97 95 O2 Delivery Room Air Room Air Room Air 11/30/18 11/30/18 11/30/18 11/30/18 12:50 15:00 16:22 19:59 Temp 98.1 98.0 98.1 98.0 Pulse 71 75 Resp 20 16 B/P (MAP) 156/89 (111) 136/75 (95) Pulse Ox 92 O2 Delivery Room Air Room Air Room Air 11/30/18 11/30/18 12/01/18 12/01/18 20:00 22:25 03:44 07:00 Temp 98.4 98.6 97.4 98.4 98.6 97.4 Pulse 73 65 61 Resp 16 16 20 B/P (MAP) 135/74 (94) 147/83 (104) 146/67 (93) Pulse Ox 92 94 94 O2 Delivery Room Air Room Air Room Air Room Air 12/01/18 08:00 O2 Delivery Room Air Intake and Output 11/30/18 11/30/18 12/01/18 15:00 23:00 07:00 Intake Total 740 ml Output Total 250 ml 250 ml Balance -250 ml 490 ml SUGEY ABREU MD Dec 01, 2018 11:00
[2018-12-01] MEDS: DICLOFENAC SODIUM 25 MG TABLET.DR PO SCH ×2 (11:42→20:42)
[2018-12-01] MEDS: GABAPENTIN 300 MG CAPSULE. PO SCH ×3 (11:42→16:00)
[2018-12-01] MEDS: OXYBUTYNIN CHLORIDE 5 MG TABLET PO SCH ×2 (11:42→20:43)
--- NOTE | 2018-12-01 12:13 | NUR ---
SS following for discharge planning. SS reviewed pt chart. Pt is from home and currently on room air. No discharge needs noted at this time. SS will continue to follow for pending discharge needs.
--- NOTE | 2018-12-01 13:53 | PDOC ---
CARDIO Progress Notes Date and Time Date of Service 12/01/18 Time of Evaluation 1410 Subjective Subjective: No Chest Pain, No shortness of breath, No Palpitations Vitals Vitals Vital Signs Date Time Temp Pulse Resp B/P (MAP) Pulse Ox O2 Delivery O2 Flow Rate FiO2 12/01/18 11:00 96.3 70 20 168/76 (106) 97 Room Air 96.3 Weight Weight [ ] Input and Output Intake and Output Intake and Output 12/01/18 07:00 Intake Total 740 ml Output Total 500 ml Balance 240 ml Intake Oral 740 ml Output Urine Total 500 ml # Voids 2 Laboratory Labs Laboratory Tests Test 11/30/18 20:43 12/01/18 03:30 12/01/18 08:07 12/01/18 12:23 Glucose (Fingerstick) 98 mg/dL (70-99) 83 mg/dL (70-99) 114 mg/dL (70-99) White Blood Count 7.3 x10^3/uL (4.0-11.0) Red Blood Count 3.81 x10^6/uL (3.50-5.40) Hemoglobin 11.7 g/dL (12.0-15.5) Hematocrit 35.3 % (36.0-47.0) Mean Corpuscular Volume 93 fL (79-100) Mean Corpuscular Hemoglobin 31 pg (25-35) Mean Corpuscular Hemoglobin Concent 33 g/dL (31-37) Red Cell Distribution Width 13.9 % (11.5-14.5) Platelet Count 289 x10^3/uL (140-400) Neutrophils (%) (Auto) 53 % (31-73) Lymphocytes (%) (Auto) 35 % (24-48) Monocytes (%) (Auto) 7 % (0-9) Eosinophils (%) (Auto) 3 % (0-3) Basophils (%) (Auto) 1 % (0-3) Neutrophils # (Auto) 3.9 x10^3uL (1.8-7.7) Lymphocytes # (Auto) 2.6 x10^3/uL (1.0-4.8) Monocytes # (Auto) 0.5 x10^3/uL (0.0-1.1) Eosinophils # (Auto) 0.2 x10^3/uL (0.0-0.7) Basophils # (Auto) 0.1 x10^3/uL (0.0-0.2) Sodium Level 145 mmol/L (136-145) Potassium Level 3.7 mmol/L (3.5-5.1) Chloride Level 108 mmol/L (98-107) Carbon Dioxide Level 26 mmol/L (21-32) Anion Gap 11 (6-14) Blood Urea Nitrogen 17 mg/dL (7-20) Creatinine 1.1 mg/dL (0.6-1.0) Estimated GFR (Cockcroft-Gault) 60.3 Glucose Level 111 mg/dL (70-99) Calcium Level 8.6 mg/dL (8.5-10.1) Physical Exam HEENT: Neck Supple W Full Motion Chest: Symmetric LUNGS: Clear to Auscultation Heart: S1S2, RRR Abdomen: Soft N/T Extremities: No Edema Neurology: alert, oriented, follow commands Assessment Assessment 1. Chest pain, mixed features. Possible MSK in origin as left chest tender upon palpation. MPI underway today 2. Hypertension; elevated 3. Hyperlipemia; statin 4. Diabetes, II; as per PCP Recommendations Add ASA Resume amlodipine for BP control NPO p MN 2nd portion of MPI in am Supportive care JADE RETANA APRN Dec 01, 2018 13:53
[2018-12-01] MEDS ORDERED: LISINOPRIL 10 MG TABLET PO SCH (14:30)
[2018-12-01] MEDS ORDERED: AMLO10TA8 PO (14:33)
[2018-12-01] MEDS ORDERED: AMLO5TAB10 PO (14:34)
[2018-12-01 15:00] VITALS: BP 140/70
[2018-12-01] MEDS: ASPIRIN ENTERIC COATED 81 MG TABLET.DR. PO SCH (15:19)
[2018-12-01] MEDS: amLODIPine BESYLATE 5 MG TABLET PO SCH (15:20)
[2018-12-01 16:10] LABS: CHOLESTEROL/HDL RATIO 2.9
[2018-12-01 19:37] VITALS: BP 131/94
[2018-12-01] MEDS: ATORVASTATIN CALCIUM 20 MG TABLET PO SCH (20:42)
[2018-12-01] MEDS ORDERED: GABAPENTIN 300 MG CAPSULE. PO SCH (21:00)
[2018-12-01 22:36] VITALS: BP 137/67
[2018-12-02 03:02] VITALS: BP 140/71
[2018-12-02 07:00] VITALS: BP 148/77
[2018-12-02] MEDS: OXYBUTYNIN CHLORIDE 5 MG TABLET PO SCH (09:45)
[2018-12-02] MEDS: ASPIRIN ENTERIC COATED 81 MG TABLET.DR. PO SCH (09:45)
[2018-12-02] MEDS: DICLOFENAC SODIUM 25 MG TABLET.DR PO SCH (09:46)
[2018-12-02] MEDS: metFORMIN 500 MG TABLET PO SCH ×2 (09:46→17:00)
[2018-12-02] MEDS: amLODIPine BESYLATE 5 MG TABLET PO SCH (09:46)
[2018-12-02] MEDS: GABAPENTIN 300 MG CAPSULE. PO SCH (09:46)
[2018-12-02 11:00] VITALS: BP 154/79
--- NOTE | 2018-12-02 11:17 | PDOC ---
PROGRESS NOTES History of Present Illness History of Present Illness ASSESSMENT AND PLAN: Chest pain, rule out coronary artery disease. DIABETES MORBID OBESITY admitted. serial enzymes, cvc bed serial EKGs, MPI, Consult Cardiology, OK WITH D/C daily aspirin, p.r.n. nitro, home meds. Deep venous thrombosis prophylaxis. MPI without evidence of ischemia 12/02 Hypertension; mildly elevated 34 MIN D/C VISIT/ PLANNING TIME Vitals Vitals Vital Signs Date Time Temp Pulse Resp B/P (MAP) Pulse Ox O2 Delivery O2 Flow Rate FiO2 12/02/18 11:00 98.2 81 18 154/79 (104) 97 Room Air 98.2 Physical Exam Physical Exam GENERAL: She is alert, cooperative. Her daughter is present. HEART: Normal S1, S2. LUNGS: Clear. ABDOMEN: Soft and obese. EXTREMITIES: Trace edema. SKIN: No rashes. ENDOCRINE: No thyromegaly. LYMPHATICS: No cervical nodes. General: Alert, Oriented X3, Cooperative, No acute distress Heart: Regular rate, Normal S1 Lungs: Clear Abdomen: Normal bowel sounds, Soft, No tenderness Extremities: No clubbing, No cyanosis Skin: No significant lesion Labs LABS Laboratory Tests Test 12/01/18 12:23 12/01/18 16:59 12/01/18 20:55 12/02/18 07:48 Glucose (Fingerstick) 114 mg/dL (70-99) 95 mg/dL (70-99) 117 mg/dL (70-99) 101 mg/dL (70-99) Comment Review of Relevant I have reviewed the following items cyn (where applicable) has been applied. Labs Laboratory Tests Test 11/30/18 11:28 11/30/18 20:43 12/01/18 03:30 12/01/18 08:07 Urine Collection Type Unknown Urine Color Yellow Urine Clarity Clear Urine pH 5.0 Urine Specific [place] 1.015 Urine Protein Negative mg/dL (NEG-TRACE) Urine Glucose (UA) Negative mg/dL (NEG) Urine Ketones (Stick) Negative mg/dL (NEG) Urine Blood Small (NEG) Urine Nitrite Negative (NEG) Urine Bilirubin Negative (NEG) Urine Urobilinogen Dipstick 1.0 mg/dL (0.2 mg/dL) Urine Leukocyte Esterase Trace (NEG) Urine RBC Occ /HPF (0-2) Urine WBC 1-4 /HPF (0-4) Urine Squamous Epithelial Cells Mod /LPF Urine Bacteria Moderate /HPF (0-FEW) Urine Mucus Mod /LPF Glucose (Fingerstick) 98 mg/dL (70-99) 83 mg/dL (70-99) White Blood Count 7.3 x10^3/uL (4.0-11.0) Red Blood Count 3.81 x10^6/uL (3.50-5.40) Hemoglobin 11.7 g/dL (12.0-15.5) Hematocrit 35.3 % (36.0-47.0) Mean Corpuscular Volume 93 fL (79-100) Mean Corpuscular Hemoglobin 31 pg (25-35) Mean Corpuscular Hemoglobin Concent 33 g/dL (31-37) Red Cell Distribution Width 13.9 % (11.5-14.5) Platelet Count 289 x10^3/uL (140-400) Neutrophils (%) (Auto) 53 % (31-73) Lymphocytes (%) (Auto) 35 % (24-48) Monocytes (%) (Auto) 7 % (0-9) Eosinophils (%) (Auto) 3 % (0-3) Basophils (%) (Auto) 1 % (0-3) Neutrophils # (Auto) 3.9 x10^3uL (1.8-7.7) Lymphocytes # (Auto) 2.6 x10^3/uL (1.0-4.8) Monocytes # (Auto) 0.5 x10^3/uL (0.0-1.1) Eosinophils # (Auto) 0.2 x10^3/uL (0.0-0.7) Basophils # (Auto) 0.1 x10^3/uL (0.0-0.2) Sodium Level 145 mmol/L (136-145) Potassium Level 3.7 mmol/L (3.5-5.1) Chloride Level 108 mmol/L (98-107) Carbon Dioxide Level 26 mmol/L (21-32) Anion Gap 11 (6-14) Blood Urea Nitrogen 17 mg/dL (7-20) Creatinine 1.1 mg/dL (0.6-1.0) Estimated GFR (Cockcroft-Gault) 60.3 Glucose Level 111 mg/dL (70-99) Calcium Level 8.6 mg/dL (8.5-10.1) Triglycerides Level 85 mg/dL (0-150) Cholesterol Level 116 mg/dL (0-200) LDL Cholesterol, Calculated 59 mg/dL (0-100) VLDL Cholesterol, Calculated 17 mg/dL (0-40) Non-HDL Cholesterol Calculated 76 mg/dL (0-129) HDL Cholesterol 40 mg/dL (40-60) Cholesterol/HDL Ratio 2.9 Test 12/01/18 12:23 12/01/18 16:59 12/01/18 20:55 12/02/18 07:48 Glucose (Fingerstick) 114 mg/dL (70-99) 95 mg/dL (70-99) 117 mg/dL (70-99) 101 mg/dL (70-99) Laboratory Tests Test 12/01/18 12:23 12/01/18 16:59 12/01/18 20:55 12/02/18 07:48 Glucose (Fingerstick) 114 mg/dL (70-99) 95 mg/dL (70-99) 117 mg/dL (70-99) 101 mg/dL (70-99) Medications Current Medications Aspirin (Children'S Aspirin) 324 mg 1X ONCE PO Last administered on 11/30/18at 11:17; Start 11/30/18 at 11:15; Stop 11/30/18 at 11:16; Status DC Nitroglycerin (Nitrostat) 0.4 mg PRN Q5MIN PRN SL CHEST PAIN Last administered on 11/30/18at 11:18; Start 11/30/18 at 11:15 Ondansetron HCl (Zofran) 4 mg 1X ONCE IV ; Start 11/30/18 at 13:00; Stop at 13:01; Status DC Magnesium Sulfate 50 ml @ 25 mls/hr 1X ONCE IV Last administered on 11/30/18at 14:55; Start 11/30/18 at 13:30; Stop 11/30/18 at 15:29; Status DC Atorvastatin Calcium (Lipitor) 20 mg HS PO Last administered on 12/01/18at 20:42 ; Start 11/30/18 at 21:00 Gabapentin (Neurontin) 300 mg DAILY08 PO Last administered on 12/02/18at 09:46; Start 12/01/18 at 08:00 Diclofenac Sodium (Voltaren) 75 mg BID PO Last administered on 12/02/18 09:46 ; Start 11/30/18 at 21:00 Gabapentin (Neurontin) 600 mg DAILY16 PO Last administered on 12/01/18 11:45; Start 11/30/18 at 16:00; Stop 12/01/18 at 17:12; Status DC Metformin HCl (Glucophage) 500 mg BIDWMEALS PO Last administered on 12/02/18 09:46; Start 11/30/18 at 17:00 Oxybutynin Chloride (Ditropan) 5 mg BID PO Last administered on 12/02/18 09:45 ; Start 11/30/18 at 21:00 Dextrose (Dextrose 50%-Water Syringe) 12.5 gm PRN Q15MIN PRN IV SEE COMMENTS; Start 11/30/18 at 21:00 Regadenoson (Lexiscan) 0.4 mg 1X ONCE IV Last administered on 12/01/18at 09:28 ; Start 12/01/18 at 08:45; Stop 12/01/18 at 08:46; Status DC Aspirin (Ecotrin) 81 mg [id number] PO Last administered on 12/02/18at 09:45; Start 12/01/18 at 14:30 Lisinopril (Prinivil) 10 mg DAILY PO ; Start 12/01/18 at 14:30; Stop 12/01/18 at 14:35; Status DC Amlodipine Besylate (Norvasc) 5 mg DAILY PO Last administered on 12/02/18at 09: 46; Start 12/01/18 at 15:00 Gabapentin (Neurontin) 600 mg HS PO Last administered on 12/01/18at 20:42; Start 12/01/18 at 21:00 Active Scripts Active Reported Amlodipine Besylate 5 Mg Tablet 5 Mg PO DAILY Diclofenac Sodium 75 Mg Tablet.dr 1 Tab PO BID Gabapentin 600 Mg Tablet 600 Mg PO DAILY16 Gabapentin (Gabapentin) 300 Mg Capsule 300 Mg PO DAILY08 Oxybutynin Chloride Er (Oxybutynin Chloride) 10 Mg Tab.er.24 1 Tab PO DAILY Atorvastatin Calcium 20 Mg Tablet 20 Mg PO HS Metformin Hcl 500 Mg Tablet 500 Mg PO BIDWMEALS Vitals/I & O Vital Sign - Last 24 Hours 12/01/18 12/01/18 12/01/18 12/01/18 15:00 15:20 19:37 20:00 Temp 98.0 97.5 98.0 97.5 Pulse 78 70 61 Resp 18 18 B/P (MAP) 140/70 (93) 168/76 131/94 (106) Pulse Ox 96 96 O2 Delivery Room Air Room Air Room Air 12/01/18 12/02/18 12/02/18 12/02/18 22:36 03:02 07:00 08:10 Temp 97.6 97.4 97.5 97.6 97.4 97.5 Pulse 79 66 58 Resp 20 18 18 B/P (MAP) 137/67 (90) 140/71 (94) 148/77 (100) Pulse Ox 97 96 90 O2 Delivery Room Air Room Air Room Air Room Air 12/02/18 12/02/18 09:46 11:00 Temp 98.2 98.2 Pulse 81 Resp 18 B/P (MAP) 148/77 154/79 (104) Pulse Ox 97 O2 Delivery Room Air Intake and Output 12/01/18 12/01/18 12/02/18 14:59 22:59 06:59 Intake Total 900 ml Balance 900 ml SUGEY ABREU MD Dec 02, 2018 11:17
--- NOTE | 2018-12-02 11:43 | RAD ---
MR#: [id number] Date of Study: 12/01/2018 Ordering Physician: ARABELLA LAFLEUR, Referring Physician: BRIAN ROBBINS Tech: MARIA E Ponce APPROVED REPORT Test Type: Pharmacological Stress Nurse/Tech: Federica Tony RN Test Indications: Chest pain Cardiac History: Hypertension, high cholesterol Medications: See Electronic Medical Record Medical History: See Electronic Medical Record Resting ECG: SB with BBB Resting Heart Rate: 53 bpm Resting Blood Pressure: 161/84mmHg Pretest Chest Pain: No chest pain Nurse/Tech Notes S1,S2 and lungs are clear to auscultation. Consent: The procedure was explained to the patient in lay terms. Informed consent was witnessed. Bradley eout was entered into [employer]. History and Stress Test performed by ELA Dsouza, ERNESTINE (R) (N) Pharm. Details Pharmacologic stress testing was performed using 0.4mg per 5ml of regadenoson given intravenously ove r 7-10 seconds. Stress Symptoms Dyspnea,Nausea POST EXERCISE Reason for Termination: Infusion complete Target HR: No Max HR: 108 bpm Max Blood Pressure: 166/80mmHg Blood Pressure response to exercise: Normal blood pressure response during stress. Heart Rate response to exercise: WNL Chest Pain: No. Arrhythmia: No. ST Change: No. INTERPRETATION Stress EKG Conclusion: Baseline EKG showed sinus rhythm. No ischemic changes at peak stress. No arr hythmias. Rest: Stress: Viability: Radiopharm.Tc99m [id number] Sestamibi [id number] 33mCi Duration 15min. 15min. Img Date 12/02/2018 12/01/2018 Inj-Img [id number]. 60min. Rest Admin Site:IV - Right AntecubitalAdministrator:MARIA E Ponce Stress Admin Site: IV - Right AntecubitalAdministrator: ELA Dsouza, ERNESTINE (R)(N) STRESS DATA End Diast. Vol.62.0mlAv. Heart Rate88.0bpm LVEDV index BSA31.0mlCardiac Output2.0L/min End Syst. Vol.17.0mlCO Index BSA4.0L/min LVESV index BSA8.0mlMyocardial Ivky659.0g Eject. Ksxmgxfi71.0% Stress Scores Regional WT2.00Summed WT3.00 Regional WM0.00Summed WM2.00 LV Perfusion Scintigraphic images showed fixed defect involving the apical wall most probably breast attenuation a rtifact based on normal wall motion. No other fixed or reversible defects were seen. Wall Motion Normal left ventricle systolic function with ejection fraction calculated at 73%. LV Perf. Quant 17 Seg. SSS8.00 17 Seg. SRS2.00 17 Seg. SDS6.00 Stress Defect Extent (% LAD)11.90Rest Defect Extent (% LAD)4.40Rev. Defect Extent (% LAD)2.80 Stress Defect Extent (% LCX) 45.00Rest Defect Extent (% LCX)5.00Rev. Defect Extent (% LCX)20.00 Stress Defect Extent (% RCA)0.00Rest Defect Extent (% RCA)0.00Rev. Defect Extent (% RCA)0.00 Stress Defect Extent (% JULIO)18.90Rest Defect Extent (% JULIO)6.70Rev. Defect Extent (% JULIO)6.00 Conclusion 1. Regadenoson cardioisotope stress test showed breast attenuation artifact without any evidence for ischemia. 2. Normal left ventricular systolic function with ejection fraction calculated at 73%. 3. Low risk for cardiac events. Signed by : Bennie Kumar, Electronically Approved : 12/02/2018 11:42:26
--- NOTE | 2018-12-02 14:59 | PDOC ---
CARDIO Progress Notes Date and Time Date of Service 12/02/18 Time of Evaluation 1210 Subjective Subjective: No Chest Pain, No shortness of breath, No Palpitations Vitals Vitals Vital Signs Date Time Temp Pulse Resp B/P (MAP) Pulse Ox O2 Delivery O2 Flow Rate FiO2 12/02/18 11:00 98.2 81 18 154/79 (104) 97 Room Air 98.2 Weight Weight [ ] Input and Output Intake and Output Intake and Output 12/02/18 07:00 Intake Total 900 ml Balance 900 ml Intake Oral 900 ml # Voids 1 Laboratory Labs Laboratory Tests Test 12/01/18 16:59 12/01/18 20:55 12/02/18 07:48 12/02/18 11:26 Glucose (Fingerstick) 95 mg/dL (70-99) 117 mg/dL (70-99) 101 mg/dL (70-99) 97 mg/dL (70-99) Physical Exam HEENT: Neck Supple W Full Motion Chest: Symmetric LUNGS: Clear to Auscultation Heart: S1S2, RRR Abdomen: Soft N/T Extremities: No Edema Neurology: alert, oriented, follow commands Assessment Assessment 1. Chest pain, mixed features. Possible MSK in origin as left chest tender upon palpation. MPI without evidence of ischemia 2. Hypertension; mildly elevated 3. Hyperlipemia; statin 4. Diabetes, II; as per PCP Recommendations Continue ASA Increase Norvasc to 10mg for better BP control May discharge from a CV standpoint and f/u in our office with Dr. Cruz in 1 month. JADE RETANA APRN Dec 02, 2018 14:59
[2018-12-02 15:00] VITALS: BP 133/74
[2018-12-02] MEDS ORDERED: amLODIPine BESYLATE 5 MG TABLET PO ONE (15:00)
--- NOTE | 2018-12-02 15:27 | NUR ---
Patient is refusing the increase in her amlodipine at this time. She states she will follow up with her PCP upon discharge and does not want her BP medications changed as of right now. Patient educated on the reasoning for the increase and she states understanding but still does not want to take it at this time. Will continue to monitor.
--- NOTE | 2018-12-02 16:36 | PDOC3 ---
Discharge Summary Date of Admission: Nov 30, 2018 Date of Discharge: Dec 02, 2018 Follow-Up: 3-5 days Admitting Diagnosis comment: DISCHARGE DX Chest pain, rule out coronary artery disease. DIABETES MORBID OBESITY admitted. serial enzymes, cvc bed serial EKGs, MPI, OK Consult Cardiology, OK WITH D/C daily aspirin, p.r.n. nitro, home meds. Deep venous thrombosis prophylaxis. MPI without evidence of ischemia 12/02 Hypertension; mildly elevated 34 MIN D/C VISIT/ PLANNING TIME Vitals Vitals Vital Signs Date Time Temp Pulse Resp B/P (MAP) Pulse Ox O2 Delivery O2 Flow Rate FiO2 12/02/18 11:00 98.2 81 18 154/79 (104) 97 Room Air 98.2 Physical Exam Physical Exam GENERAL: She is alert, cooperative. Her daughter is present. HEART: Normal S1, S2. LUNGS: Clear. ABDOMEN: Soft and obese. EXTREMITIES: Trace edema. SKIN: No rashes. ENDOCRINE: No thyromegaly. LYMPHATICS: No cervical nodes. General: Alert, Oriented X3, Cooperative, No acute distress Heart: Regular rate, Normal S1 Lungs: Clear Abdomen: Normal bowel sounds, Soft, No tenderness Extremities: No clubbing, No cyanosis Skin: No significant lesion Brief Hospital Course Ms. Jessica is a 63 old [sex] who presented with [CHEST PAIN ] CONDITION AT DISCHARGE: Improved Discharge Medications Current Medications Aspirin (Children'S Aspirin) 324 mg 1X ONCE PO Last administered on 11/30/18at 11:17; Start 11/30/18 at 11:15; Stop 11/30/18 at 11:16; Status DC Nitroglycerin (Nitrostat) 0.4 mg PRN Q5MIN PRN SL CHEST PAIN Last administered on 11/30/18at 11:18; Start 11/30/18 at 11:15 Ondansetron HCl (Zofran) 4 mg 1X ONCE IV ; Start 11/30/18 at 13:00; Stop at 13:01; Status DC Magnesium Sulfate 50 ml @ 25 mls/hr 1X ONCE IV Last administered on 11/30/18at 14:55; Start 11/30/18 at 13:30; Stop 11/30/18 at 15:29; Status DC Atorvastatin Calcium (Lipitor) 20 mg HS PO Last administered on 12/01/18 20:42 ; Start 11/30/18 at 21:00 Gabapentin (Neurontin) 300 mg DAILY08 PO Last administered on 12/02/18 09:46; Start 12/01/18 at 08:00 Diclofenac Sodium (Voltaren) 75 mg BID PO Last administered on 12/02/18 09:46 ; Start 11/30/18 at 21:00 Gabapentin (Neurontin) 600 mg DAILY16 PO Last administered on 12/01/18 11:45; Start 11/30/18 at 16:00; Stop 12/01/18 at 17:12; Status DC Metformin HCl (Glucophage) 500 mg BIDWMEALS PO Last administered on 12/02/18 09:46; Start 11/30/18 at 17:00 Oxybutynin Chloride (Ditropan) 5 mg BID PO Last administered on 12/02/18 09:45 ; Start 11/30/18 at 21:00 Dextrose (Dextrose 50%-Water Syringe) 12.5 gm PRN Q15MIN PRN IV SEE COMMENTS; Start 11/30/18 at 21:00 Regadenoson (Lexiscan) 0.4 mg 1X ONCE IV Last administered on 12/01/18 09:28 ; Start 12/01/18 at 08:45; Stop 12/01/18 at 08:46; Status DC Aspirin (Ecotrin) 81 mg DAILYWBKFT PO Last administered on 12/02/18 09:45; Start 12/01/18 at 14:30 Lisinopril (Prinivil) 10 mg DAILY PO ; Start 12/01/18 at 14:30; Stop 12/01/18 at 14:35; Status DC Amlodipine Besylate (Norvasc) 5 mg DAILY PO Last administered on 12/02/18 09: 46; Start 12/01/18 at 15:00; Stop 12/02/18 at 15:00; Status DC Gabapentin (Neurontin) 600 mg HS PO Last administered on 12/01/18 20:42; Start 12/01/18 at 21:00 Amlodipine Besylate (Norvasc) 10 mg DAILY PO ; Start 12/03/18 at 09:00 Amlodipine Besylate (Norvasc) 5 mg 1X ONCE PO ; Start 12/02/18 at 15:00; Stop 12/02/18 at 15:01; Status DC Active Scripts Active Reported Amlodipine Besylate 5 Mg Tablet 5 Mg PO DAILY Diclofenac Sodium 75 Mg Tablet.dr 1 Tab PO BID Gabapentin 600 Mg Tablet 600 Mg PO DAILY16 Gabapentin (Gabapentin) 300 Mg Capsule 300 Mg PO DAILY08 Oxybutynin Chloride Er (Oxybutynin Chloride) 10 Mg Tab.er.24 1 Tab PO DAILY Atorvastatin Calcium 20 Mg Tablet 20 Mg PO HS Metformin Hcl 500 Mg Tablet 500 Mg PO BIDWMEALS Vital Signs Vital Signs Date Time Temp Pulse Resp B/P (MAP) Pulse Ox O2 Delivery O2 Flow Rate FiO2 12/02/18 15:00 80 125/57 12/02/18 11:00 98.2 18 97 Room Air 98.2 Labs Laboratory Tests Test 11/30/18 20:43 12/01/18 03:30 12/01/18 08:07 12/01/18 12:23 Glucose (Fingerstick) 98 mg/dL (70-99) 83 mg/dL (70-99) 114 mg/dL (70-99) White Blood Count 7.3 x10^3/uL (4.0-11.0) Red Blood Count 3.81 x10^6/uL (3.50-5.40) Hemoglobin 11.7 g/dL (12.0-15.5) Hematocrit 35.3 % (36.0-47.0) Mean Corpuscular Volume 93 fL (79-100) Mean Corpuscular Hemoglobin 31 pg (25-35) Mean Corpuscular Hemoglobin Concent 33 g/dL (31-37) Red Cell Distribution Width 13.9 % (11.5-14.5) Platelet Count 289 x10^3/uL (140-400) Neutrophils (%) (Auto) 53 % (31-73) Lymphocytes (%) (Auto) 35 % (24-48) Monocytes (%) (Auto) 7 % (0-9) Eosinophils (%) (Auto) 3 % (0-3) Basophils (%) (Auto) 1 % (0-3) Neutrophils # (Auto) 3.9 x10^3uL (1.8-7.7) Lymphocytes # (Auto) 2.6 x10^3/uL (1.0-4.8) Monocytes # (Auto) 0.5 x10^3/uL (0.0-1.1) Eosinophils # (Auto) 0.2 x10^3/uL (0.0-0.7) Basophils # (Auto) 0.1 x10^3/uL (0.0-0.2) Sodium Level 145 mmol/L (136-145) Potassium Level 3.7 mmol/L (3.5-5.1) Chloride Level 108 mmol/L (98-107) Carbon Dioxide Level 26 mmol/L (21-32) Anion Gap 11 (6-14) Blood Urea Nitrogen 17 mg/dL (7-20) Creatinine 1.1 mg/dL (0.6-1.0) Estimated GFR (Cockcroft-Gault) 60.3 Glucose Level 111 mg/dL (70-99) Calcium Level 8.6 mg/dL (8.5-10.1) Triglycerides Level 85 mg/dL (0-150) Cholesterol Level 116 mg/dL (0-200) LDL Cholesterol, Calculated 59 mg/dL (0-100) VLDL Cholesterol, Calculated 17 mg/dL (0-40) Non-HDL Cholesterol Calculated 76 mg/dL (0-129) HDL Cholesterol 40 mg/dL (40-60) Cholesterol/HDL Ratio 2.9 Test 12/01/18 16:59 12/01/18 20:55 12/02/18 07:48 12/02/18 11:26 Glucose (Fingerstick) 95 mg/dL (70-99) 117 mg/dL (70-99) 101 mg/dL (70-99) 97 mg/dL (70-99) Laboratory Tests Test 12/01/18 16:59 12/01/18 20:55 12/02/18 07:48 12/02/18 11:26 Glucose (Fingerstick) 95 mg/dL (70-99) 117 mg/dL (70-99) 101 mg/dL (70-99) 97 mg/dL (70-99) Allergies Allergies Coded Allergies Type Severity Reaction Last Updated Verified diazepam Allergy Intermediate Unknown 11/30/18 Yes Disposition/Orders: D/C to Home Patient Instructions D/C PLANNING 37 MIN SUGEY ABREU MD Dec 02, 2018 16:36
--- NOTE | 2018-12-02 16:38 | DISCH ---
DISCHARGE INSTRUCTIONS Condition on Discharge Condition on Discharge: Stable Activity After Discharge Activity Instructions for Disc: Activity as tolerated Lifting Instructions after Dis: No heavy lifting, No pulling or pushing Driving Instructions after Dis: Do not drive today Weight Bearing Status after Di: As tolerated Diet after Discharge Diet after Discharge: Cardiac, Diabetic No Calorie Level Liquid Texture: Thin Liquid Checks after Discharge Checks after discharge: Check blood press - daily, Check blood sugar, ac/hs Contacting the DR. after DC Call your doctor for: If your condition worsens Treatment/Equipment after DC Adaptive Equipment Issued: None SUGEY ABREU MD Dec 02, 2018 16:38
--- NOTE | 2018-12-02 17:47 | NUR ---
Patient left the facility with her family in a wheelchair around 1745. She left with all her belongings. Discharge education completed and understood by the patient. No concerns noted upon discharge.
[2018-12-03] MEDS ORDERED: amLODIPine BESYLATE 10 MG TABLET PO SCH (09:00)
== END 2018-12-02 17:45 | disposition home or self-care (01) | DRG 206 ==
LOC: ER 10:48 → 2 NORTH 12:10
PROVIDERS: ADMIT Internal Medicine; ATTEND Internal Medicine
DX: M94.0 Chondrocostal junction syndrome [Tietze] (principal); Z68.41 Body mass index [BMI] 40.0-44.9, adult; I10 Essential (primary) hypertension; E78.00 Pure hypercholesterolemia, unspecified; E11.9 Type 2 diabetes mellitus without complications; M19.90 Unspecified osteoarthritis, unspecified site; Z82.49 Family history of ischemic heart disease and other diseases of the circulatory system; E78.5 Hyperlipidemia, unspecified; E66.01 Morbid (severe) obesity due to excess calories
CPT/HCPCS: 36415; 71046; 73020; 78452; 80048; 80053; 80061; 81001; 82962; 83735; 83880; 84484; 85025; 87086; 93005; 93017; 96374; 96376; A9500; J2785; J3475; 99285-25

== ENCOUNTER → 2020-03-28 | Outpatient (CLI) | payer MEDICARE ==
[~2020-03-28] MED LIST changes: +AMLO10TA8 PO; +AMLO5TAB10 PO; -OMEP20CA10 PO; +OMEP20CA16 PO; -OXYB10TA PO; +OXYB10TA26 PO
--- NOTE | 2020-03-28 16:30 | RAD ---
EXAM: Left lower extremity venous Doppler. HISTORY: Left lower extremity pain/swelling. COMPARISON: None. FINDINGS: Grayscale and Doppler analysis of the left lower extremity deep venous system was performed with graded compression and augmentation. The common femoral, greater saphenous, superficial femoral, popliteal and calf veins were assessed. There is no evidence of deep venous thrombosis. IMPRESSION: 1. No evidence of deep venous thrombosis. Electronically signed by: Harriet Byrne MD (03/28/2020 4:27 PM) [id number]
== END | disposition home or self-care (01) ==
LOC: US 16:02
PROVIDERS: ATTEND Nurse Practitioner Gerontology
DX: M79.89 Other specified soft tissue disorders (principal)
CPT/HCPCS: 93971

== ENCOUNTER → 2020-04-12 | Outpatient (CLI) | payer MEDICARE ==
[~2020-04-12] MED LIST changes: +CONTRAST GIVEN. MC PRN; +IOHEXOL 300 MG/ML 100ML VIAL. IV ONE
[2020-04-12 09:24] LABS: ALBUMIN 3.6 g/dL (3.4-5.0); ALBUMIN/GLOBULIN RATIO 0.9 (1.0-1.7); CALCIUM 8.9 mg/dL (8.5-10.1); GFR 66.9; POTASSIUM 4.5 mmol/L (3.5-5.1); TOTAL BILIRUBIN 0.5 mg/dL (0.2-1.0); TOTAL PROTEIN 7.4 g/dL (6.4-8.2)
--- NOTE | 2020-04-12 11:23 | RAD ---
Examination: CT of the abdomen without and with IV contrast HISTORY: History of adrenal nodule COMPARISON: 04/14/2018 TECHNIQUE: Axial CT images of the abdomen is performed without and with IV contrast using CT angiogram protocol. Coronal and sagittal reformats are performed Exposure: One or more of the following individualized dose reduction techniques were utilized for this examination: 1. Automated exposure control 2. Adjustment of the mA and/or kV according to patient size 3. Use of iterative reconstruction technique FINDINGS: Linear bibasilar lung atelectasis. No evidence of free air identified in the visualized abdomen. Scattered calcified granulomas identified in the liver and spleen. The gallbladder is mildly distended. There is hyperdensity identified measuring 1.2 cm in the proximal gallbladder likely gallstone. There is a 1.9 cm left adrenal nodule identified measuring 40 Hounsfield units on the noncontrasted exam, 95 Hounsfield units on the portal venous phase and 65 Hounsfield units on the delayed images. The absolute washout is 54.5 percent and with relative washout 31.5 percent. Punctate bilateral intrarenal calculi system calculi with the largest measuring 3 mm the right kidney. Moderate thoracolumbar spine. IMPRESSION: 1. Unchanged 1.9 cm the left adrenal nodule, indeterminate and difficult to characterize but most likely adenoma given the unchanged size. 2. Cholelithiasis. 3. Bilateral nephrolithiasis. Electronically signed by: Stepan Fox MD (04/12/2020 11:20 AM) [id number]
== END | disposition home or self-care (01) ==
LOC: CT 13:09
PROVIDERS: ATTEND Nurse Practitioner Gerontology
DX: K80.20 Calculus of gallbladder without cholecystitis without obstruction (principal); N20.0 Calculus of kidney; N32.89 Other specified disorders of bladder; E27.9 Disorder of adrenal gland, unspecified; J98.11 Atelectasis; D73.89 Other diseases of spleen
CPT/HCPCS: 36415; 74170; 80053

== ENCOUNTER 2020-06-11 15:07 | Emergency (ER) | payer MEDICARE ==
[~2020-06-11] VITALS: Ht 154.9 cm; Wt 105.0 kg
[~2020-06-11 15:07] MED LIST changes: -CONTRAST GIVEN. MC PRN; -IOHEXOL 300 MG/ML 100ML VIAL. IV ONE
[2020-06-11 15:40] VITALS: BP 166/93
[2020-06-11] MEDS ORDERED: MUPI22OI2 TP (16:33)
[2020-06-11] MEDS ORDERED: CEPH500C PO (16:33)
--- NOTE | 2020-06-11 16:33 | PHYS DOC ---
Past Medical History Past Medical History: Arthritis, Diabetes-Type II, High Cholesterol, Hype rtension Past Surgical History: No Surgical History, , Hysterectomy, Tonsillectomy Smoking Status: Never Smoker Alcohol Use: None Drug Use: None General Adult EDM: Chief Complaint: THUMB HPI: HPI: Patient is a 65 year old female who presents to the emergency department with complaints of left thumb pain and swelling for the last 4 days. Patient states that the symptoms started after she ripped a hangnail off and then use of alcohol hand drum straightener. She denies any fever, drainage, or bleeding. She currently rates her pain a 10 out of 10 on the pain scale, she denies any alleviating factors. Review of Systems: Review of Systems: Constitutional: Denies fever or chills. [] HENT: Denies nasal congestion or sore throat. [] Respiratory: Denies cough or shortness of breath. [] GI: Denies abdominal pain, nausea, vomiting, or diarrhea. [] Musculoskeletal: Denies back pain or joint pain. [] Integument: See HPI Neurologic: Denies headache Complete ROS is negative unless otherwise stated in the HPI. Heart Score: Risk Factors: Risk Factors: DM, Current or recent (<one month) smoker, HTN, HLP, family history of CAD, obesity. Risk Scores: Score 0 - 3: 2.5% MACE over next 6 weeks - Discharge Home Score 4 - 6: 20.3% MACE over next 6 weeks - Admit for Clinical Observation Score 7 - 10: 72.7% MACE over next 6 weeks - Early Invasive Strategies Allergies: Allergies: Allergies Coded Allergies Type Severity Reaction Last Updated Verified diazepam Allergy Intermediate Unknown 11/30/18 Yes Physical Exam: PE: Constitutional: Well developed, well nourished, no acute distress, non-toxic appearance, obese. [] HENT: Normocephalic, atraumatic, bilateral external ears normal, nose normal. [] Eyes: PERRLA, EOMI, conjunctiva normal, no discharge. [] Neck: Normal range of motion, no stridor. [] Cardiovascular:Heart rate regular rhythm Lungs & Thorax: Respirations even and unlabored, no retractions, no respiratory distress Skin: Warm, dry; erythema, edema, and pus noted along the lateral edge of the left nailbed consistent with paronychia, no active drainage or bleeding Extremities: No cyanosis, ROM intact, no edema. [] Neurologic: Alert and oriented X 3, no focal deficits noted. [] Psychologic: Affect normal, judgement normal, mood normal. [] Current Patient Data: Vital Signs: Vital Signs Date Time Temp Pulse Resp B/P (MAP) Pulse Ox O2 Delivery O2 Flow Rate FiO2 06/11/20 15:40 97.8 115 16 166/93 (117) 94 Room Air 97.8 EKG: EKG: [] Radiology/Procedures: Radiology/Procedures: [] Course & Med Decision Making: Course & Med Decision Making Pertinent Labs and Imaging studies reviewed. (See chart for details) [] Dragon Disclaimer: Dragon Disclaimer: This electronic medical record was generated, in whole or in part, using a voice recognition dictation system. Departure Departure Impression: Primary Impression: Acute paronychia of left thumb Disposition: HOME, SELF-CARE Condition: STABLE Referrals: ARVIND CHRISTIANSEN MD (PCP) Patient Instructions: Paronychia, [id number] Additional Instructions: Fill prescription(s) and use as directed. Soak the affected area in epsom salt soaks 3-4x/day and as needed for comfort. You may take tylenol or ibuprofen as needed for pain. Wound recheck in 48 hours. Follow up with your primary care doctor for wound recheck, return to the ER if your symptoms worsen. Scripts Mupirocin (MUPIROCIN OINTMENT) 22 Gm Oint...g. 1 DAMIEN TP BID for WOUND CARE for 7 Days, #1 TUBE 0 Refills Prov: YAMILE ARGUETA APRN 06/11/20 Cephalexin (CEPHALEXIN) 500 Mg Capsule 1 CAP PO QID for 7 Days, #28 CAP 0 Refills Prov: YAMILE ARGUETA APRN 06/11/20 Justicifation of Admission Dx: Justifications for Admission: Justification of Admission Dx: No YAMILE ARGUETA APRN Jun 11, 2020 16:33
== END 2020-06-11 16:38 | disposition home or self-care (01) ==
LOC: ER 15:07
DX: L03.012 Cellulitis of left finger (principal); R60.0 Localized edema; L53.9 Erythematous condition, unspecified; M19.90 Unspecified osteoarthritis, unspecified site; E11.9 Type 2 diabetes mellitus without complications; E78.00 Pure hypercholesterolemia, unspecified; I10 Essential (primary) hypertension; Z90.710 Acquired absence of both cervix and uterus; Z90.89 Acquired absence of other organs; Z98.890 Other specified postprocedural states
CPT/HCPCS: 99283

== ENCOUNTER → 2020-07-08 | Outpatient (CLI) | payer MEDICARE, OTHER ==
[2020-06-11 15:40] VITALS: BP 166/93
[~2020-07-08] MED LIST changes: +AMLO-186 PO; +AMLO-187 PO; -AMLO10TA8 PO; -AMLO5TAB10 PO; +CEPH500C PO; +MUPI22OI2 TP
--- NOTE | 2020-07-08 12:39 | KCIC ---
Bilateral digital screening mammograms: Reason for examination: Routine screening. Comparison is made to previous study dated 12/25/2016. Interpretation is made with the benefit of CAD. The skin and nipples show no abnormalities. No abnormal lymph nodes are seen. The breast parenchyma is predominantly fatty. (Breast density: Category A.) There are no dominant masses, suspicious calcifications or architectural distortions. Impression: No evidence of malignancy. Recommend routine screening. BI-RADS Category 1: Negative. "Our facility is accredited by the [employer] Mammography Program." This patient's information has been entered into a reminder system for the patient to be notified with the results of her examination and a target date for the next mammogram. Electronically signed by: Saloni Downey MD (07/08/2020 12:36 PM) [id number]
== END ==
LOC: KCIC MAMMO 08:56
PROVIDERS: ATTEND Nurse Practitioner Gerontology
DX: Z12.31 Encounter for screening mammogram for malignant neoplasm of breast (principal)
CPT/HCPCS: 77067

== ENCOUNTER 2020-09-18 09:35 | Emergency (ER) | payer MEDICARE ==
[~2020-09-18] VITALS: Ht 154.9 cm; Wt 95.4 kg
[2020-09-18 09:56] VITALS: BP 194/82
[2020-09-18] MEDS ORDERED: DEXAMETHASONE SOD PHOS 4 MG/ML VIAL PO ONE (10:00)
[2020-09-18] MEDS ORDERED: KETOROLAC 60 MG/2 ML VIAL. IM ONE (10:00)
[2020-09-18] MEDS ORDERED: ORPHENADRINE CITRATE 60 MG/2 ML VIAL. IM ONE (10:00)
[2020-09-18] MEDS ORDERED: DICLOFENAC SODIUM 1% TOPICAL GEL 100GM TUBE. TP ONE (11:00)
[2020-09-18] MEDS ORDERED: PRED-220 PO (11:39)
--- NOTE | 2020-09-18 11:39 | ED.ADGEN ---
Past Medical History Past Medical History: Arthritis, Diabetes-Type II, High Cholesterol, Hype rtension Past Surgical History: No Surgical History, , Hysterectomy, Tonsillectomy Smoking Status: Never Smoker Alcohol Use: None Drug Use: None General Adult EDM: Chief Complaint: LOWER EXT PAIN HPI: HPI: Patient is a 65-year-old female with a past medical history of sciatica who presents to the emergency room complaining of her sciatica acting up. Patient states that this has been ongoing for the last couple months but is gotten worse over the last week. When it initially started hurting her doctor put her on steroids 2 months ago which she states did help with the time. She has been on 2 different muscle relaxants that have not seem to help. She states that the pain is severe and she is not able to get around well due to pain. Review of Systems: Review of Systems: Complete ROS is negative unless otherwise documented in HPI Current Medications: Current Medications Medications (Trade) Dose Ordered Sig/Daniella Start Time Stop Time Status Last Admin Dose Admin Dexamethasone Sodium Phosphate (Decadron) 10 mg 1X ONCE 09/18/20 10:00 09/18/20 10:01 DC 09/18/20 10:30 10 MG Diclofenac Sodium (Voltaren) 1 sid 1X ONCE 09/18/20 11:00 09/18/20 11:01 DC 09/18/20 10:48 1 SID Ketorolac Tromethamine (Toradol Im) 60 mg 1X ONCE 09/18/20 10:00 09/18/20 10:01 DC 09/18/20 10:35 60 MG Orphenadrine Citrate (Norflex) 60 mg 1X ONCE 09/18/20 10:00 09/18/20 10:01 DC 09/18/20 10:34 60 MG Allergies: Allergies: Allergies Coded Allergies Type Severity Reaction Last Updated Verified diazepam Allergy Intermediate Unknown 11/30/18 Yes Physical Exam: PE: General: Awake, alert, NAD. Well Nourished, well hydrated. Cooperative HEENT: Atraumatic, EOMI, PERRL, airway patent, moist oral mucosa Neck: Supple, trachea midline Respiratory: CTA bilaterally, normal effort, no wheezing/crackles CV: RRR, no murmur, cap refill <2 GI: Soft, nondistended, nontender, no masses MSK: No obvious deformities, tenderness along the left side of the buttocks Skin: Warm, dry, intact Neuro: A&O x3, speech NL, sensory and motor grossly intact, no focal deficits Psych: Normal affect, normal mood, not suicidal or homicidal Current Patient Data: Vital Signs: Vital Signs Date Time Temp Pulse Resp B/P (MAP) Pulse Ox O2 Delivery O2 Flow Rate FiO2 09/18/20 09:56 98.2 94 20 194/82 (119) 94 Room Air 98.2 EKG: EKG: [] Heart Score: Risk Factors: Risk Factors: DM, Current or recent (<one month) smoker, HTN, HLP, family history of CAD, obesity. Risk Scores: Score 0 - 3: 2.5% MACE over next 6 weeks - Discharge Home Score 4 - 6: 20.3% MACE over next 6 weeks - Admit for Clinical Observation Score 7 - 10: 72.7% MACE over next 6 weeks - Early Invasive Strategies Radiology/Procedures: Radiology/Procedures: [] Course & Med Decision Making: Course & Med Decision Making Pertinent Labs and Imaging studies reviewed. (See chart for details) Patient is a 65-year-old female who presents to the Emergency room with non- traumatic back pain. Patient denies bowel incontinence, urinary retention, fever, numbness, weakness. On exam, patient does not have a neurologic deficits, saddle anesthesia, gait difficulty, signs of trauma, or wounds near area of pain. Patient does not have a history of cancer or prolonged steroid use. At this time, patient does not have any signs, symptoms, or risk factors of emergent causes of back pain making cauda equina, spinal abscess, transverse myelitis, fractures, and other causes of emergent back pain highly unlikely. At this time, patient does not need any further work up for their back pain and will be treated symptomatically. Patient's test results and vitals while in the ED were fully reviewed and discussed with the patient. Patient is stable and at this time does not need admission to the hospital. We have discussed strict return precautions and the importance of following up with their Primary Care Physician. Patient stated understanding and was given an opportunity to ask any questions. Patient is in agreement with plan. [place] Disclaimer: [place] Disclaimer: This electronic medical record was generated, in whole or in part, using a voice recognition dictation system. Departure Departure Impression: Primary Impression: Sciatica Disposition: 01 DC HOME SELF CARE/HOMELESS Condition: STABLE Referrals: ARVIND CHRISTIANSEN MD (PCP) Patient Instructions: Sciatica Scripts Prednisone (PREDNISONE ) 10 Mg Tablet 10 MG PO UD for PREDNISONE TAPER, #46 TAB 0 Refills Take 5 tablets by mouth once a day for 5 days, then take 4 tablets by mouth once a day for 2 days, then take 3 tablet by mouth once a day for 2 days, then take 2 tablet by mouth once a day for 2 days, then take 1 tablet by mouth once a day for 2 days, then stop Prov: FER CHÁVEZ MD 09/18/20 FER CHÁVEZ MD Sep 18, 2020 11:39
== END 2020-09-18 12:11 | disposition home or self-care (01) ==
LOC: ER 09:35
DX: M54.42 Lumbago with sciatica, left side (principal); M19.90 Unspecified osteoarthritis, unspecified site; E11.9 Type 2 diabetes mellitus without complications; E78.00 Pure hypercholesterolemia, unspecified; I10 Essential (primary) hypertension; Z90.710 Acquired absence of both cervix and uterus; Z90.89 Acquired absence of other organs; Z88.8 Allergy status to other drugs, medicaments and biological substances
CPT/HCPCS: 96372; 99284; J1100; J1885; J2360

== ENCOUNTER → 2020-11-30 | Outpatient (CLI) | payer MEDICARE ==
[~2020-11-30] MED LIST changes: +PRED-220 PO
--- NOTE | 2020-11-30 10:29 | KCIC ---
EXAM: Bilateral knees, 3 views. HISTORY: Arthritis. COMPARISON: 07/21/2018 FINDINGS: 3 views of both knees are obtained. There is severe medial compartment joint space narrowin g with degenerative subchondral sclerosis, subchondral cyst formation and spurring involving the righ t knee. There is bony remodeling and cortical irregularity along the medial femoral condyle articular surface suggesting a possible superimposed osteochondral lesion. There is right genu varus. There is moderate right lateral and patellofemoral compartment spurring. There are right knee joint loose bod ies. There is a trace right knee effusion. There is mild patellofemoral compartment and medial compon ents spurring of the left knee. IMPRESSION: 1. Severe medial compartment predominant osteoarthritis of the right knee with medial compartment bon y remodeling and a possible osteochondral lesion involving the medial femoral condyle. There is assoc iated right genu varus, a small joint effusion and suspected joint loose bodies. This has progressed compared to the prior exam. 2. Mild osteoarthrosis of the left knee. Electronically signed by: Fabienne Mena MD (11/30/2020 10:26 AM) [id number]
--- NOTE | 2020-11-30 10:30 | KCIC ---
EXAM: Left shoulder, 3 views. HISTORY: Pain. COMPARISON: None. FINDINGS: 3 views of the left shoulder obtained. There is no acute fracture, dislocation or subluxati on. There is an incidental safety pin overlying the left upper thorax. IMPRESSION: No acute osseous finding. Electronically signed by: Fabienne Mena MD (11/30/2020 10:28 AM) [id number]
== END ==
LOC: KCIC 09:57
PROVIDERS: ATTEND Family Medicine
DX: M17.0 Bilateral primary osteoarthritis of knee (principal); M25.462 Effusion, left knee; M25.461 Effusion, right knee
CPT/HCPCS: 73030; 73562-50

== ENCOUNTER → 2021-04-14 | Outpatient (CLI) | payer MEDICARE ==
--- NOTE | 2021-04-14 09:28 | RAD ---
EXAMINATION: US BILATERAL LOWEREXTREMITY VENOUS DOPPLER (LOWER EXTREMITY VENOUS ULTRASOUND) CLINICAL HISTORY: Bilateral lower extremity pain TECHNIQUE: Sonographic grayscale images obtained of the bilateral lower extremity deep venous systems with color flow Doppler, compression, and augmentation techniques as indicated. Images obtained and stored in a permanent archive. COMPARISON: None FINDINGS: RIGHT: No evidence of absent flow or incompressibility within the common femoral vein, femoral vein, or popl iteal vein. Visualized calf veins appear patent on limited evaluation. LEFT: No evidence of absent flow or incompressibility within the common femoral vein, femoral vein, or popl iteal vein. Visualized calf veins appear patent on limited evaluation. IMPRESSION: No evidence of bilateral lower extremity DVT. Electronically signed by: Tez Ponce DO (04/14/2021 9:25 AM) [id number]
== END ==
LOC: US 07:42
PROVIDERS: ATTEND Family Medicine
DX: M79.661 Pain in right lower leg (principal); M79.662 Pain in left lower leg
CPT/HCPCS: 93970

== ENCOUNTER 2021-04-27 19:22 | Emergency (ER) | payer MEDICARE ==
[~2021-04-27] VITALS: Ht 165.1 cm; Wt 100.0 kg
--- NOTE | 2021-04-27 21:54 | PHYS DOC ---
Past Medical History Past Medical History: Arthritis, Diabetes-Type II, High Cholesterol, Hype rtension Past Surgical History: No Surgical History, , Hysterectomy, Tonsillectomy Smoking Status: Never Smoker Alcohol Use: None Drug Use: None General Adult EDM: Chief Complaint: LOWER EXTREMITY SWELLING HPI: HPI: 66-year-old female past medical history of type 2 diabetes, hypertension, hyperlipidemia, obesity and osteoarthritis, presents to the ED with complaints of left toe pain and swelling for the past 2 weeks. Reports her granddaughter had a baby at the end of February/early March and was sitting alot at that time at the hospital. No known history of congestive heart failure or CAD or DVT. No associated orthopnea, dyspnea, chest pain or syncope. Has been vaccinated for Covid "months ago." Not on any AC. No history of blunt trauma to the left foot or toe. States there has been some drainage from the left toe for the past few days. No known h/o MRSA. Review of Systems: Review of Systems: Constitutional: Denies fever or chills. [] Eyes: Denies change in visual acuity. [] HENT: Denies nasal congestion or sore throat. [] Respiratory: Denies cough or shortness of breath or hemoptysis Cardiovascular: Denies chest pain or edema. [] GI: Denies nausea, vomiting, : Denies dysuria or hematuria Musculoskeletal: Denies back pain or CVA tenderness Integument: Denies rash or diaphoresis Neurologic: Denies headache, focal weakness or sensory changes. [] Psychiatric: Denies depression or anxiety. [] Heart Score: C/O Chest Pain: No Risk Factors: Risk Factors: DM, Current or recent (<one month) smoker, HTN, HLP, family h istory of CAD, obesity. Risk Scores: Score 0 - 3: 2.5% MACE over next 6 weeks - Discharge Home Score 4 - 6: 20.3% MACE over next 6 weeks - Admit for Clinical Observation Score 7 - 10: 72.7% MACE over next 6 weeks - Early Invasive Strategies Allergies: Allergies: Allergies Coded Allergies Type Severity Reaction Last Updated Verified diazepam Allergy Intermediate Unknown 11/30/18 Yes Physical Exam: PE: Constitutional: Well developed, well nourished, no acute distress, non-toxic appearance. HENT: Normocephalic, atraumatic, Eyes: EOMI, conjunctiva normal, no discharge. Neck: Normal range of motion, supple, Cardiovascular: S1/2 present, regular rhythm Lungs & Thorax: Speaking in full sentences, bilateral equal chest rise, no tachypnea or increased work of breathing Skin: Warm, dry, no rash. [] Extremities: Tender/mildly swollen left toe with epidermis missing over lateral aspect of nail margin with no purulence expressed-no obvious evidence of cellulitis or paronychia, no cyanosis, equal lower extremity pulses, bilateral lower extremity pitting edema with pedal edema, worse on left than right lower extremity Neurologic: Alert and oriented X 3, normal motor function, normal sensory function, no focal deficits noted. [] Psychologic: Affect normal, judgement normal, mood normal. [] EKG: EKG: Sinus rhythm 86 bpm, no axis deviation, normal intervals, no T wave inversions, no ST elevations or ST depressions Radiology/Procedures: Radiology/Procedures: []IMAGING REPORT Signed PATIENT: LEISA TURK ACCOUNT: [id number] : 1955 LOCATION: ER AGE: 66 SEX: F EXAM STATUS: REG ER ORD. PHYSICIAN: YOLI PERALTA DO REASON: left toe pain/swelling PROCEDURE: TOES LEFT XR LT TOE 2+ VIEWS History: Reason: left toe pain/swelling / Spl. Instructions: / History: Technique: 3 views left foot Comparison: None. Findings: No dislocation. No acute fracture. No radiographic evidence of osteomyelitis. Mild midfoot DJD. Plantar calcaneal spur. Benign-appearing periosteal reaction along the fourth metatarsal, may relate to prior trauma. Dorsal foot soft tissue swelling. Impression: 1. No radiographic evidence of osteomyelitis. If persistent clinical concern, MRI can better evaluate. 2. Dorsal foot soft tissue swelling. Electronically signed by: Cachorro Cortes DO (04/27/2021 11:18 PM) [facility] DICTATED and SIGNED BY: CACHORRO CORTES DO DATE: 04/27/21 [id number] IMAGING REPORT Signed PATIENT: LEISA TURK ACCOUNT: [id number] : 1955 LOCATION: ER AGE: 66 SEX: F EXAM STATUS: REG ER ORD. PHYSICIAN: YOLI PERALTA DO REASON: LLE >> RLE, r.oi dvt PROCEDURE: VENOUS LOWER EXT BILATERAL EXAM: Bilateral lower extremity venous Doppler. HISTORY: Bilateral lower extremity pain/swelling. COMPARISON: None. FINDINGS: Grayscale and Doppler analysis of the both lower extremity deep venous systems was performed with graded compression and augmentation. The common femoral, greater saphenous, superficial femoral, popliteal and calf veins were assessed. There is no evidence of deep venous thrombosis. IMPRESSION: 1. No evidence of deep venous thrombosis. Electronically signed by: Harriet Byrne MD (04/28/2021 12:57 AM) [facility] DICTATED and SIGNED BY: WALTER BYRNE MD DATE: 04/28/21 [id number] 0 IMAGING REPORT Signed PATIENT: LEISA TURK ACCOUNT: [id number] : 1955 LOCATION: ER AGE: 66 SEX: F EXAM STATUS: REG ER ORD. PHYSICIAN: YOLI PERALTA DO REASON: left toe pain/swelling PROCEDURE: CHEST AP ONLY XR CHEST 1V History: Pain Comparison: November 30, 2018 Findings: No consolidation or pleural effusion. Normal heart size. No pneumothorax. Impression: 1. No acute cardiopulmonary process. Electronically signed by: Cachorro Cortes DO (04/27/2021 11:16 PM) [facility] DICTATED and SIGNED BY: CACHORRO CORTES DO DATE: 04/27/21 [id number] 0 Course & Med Decision Making: Course & Med Decision Making Pertinent Labs and Imaging studies reviewed. (See chart for details) Concern for possible infected left toenail, obvious signs of paronychia. Imaging with no DVT or signs of osteomyelitis. Will start patient on antibiotics and referred to specialist. Will discharge home with strict ED return precautions were given for severe pain, rash or purulent drainage. Encouraged urgent outpatient follow-up with PMD and podiatry. Life-threatening processes were considered but are low suspicion at this time, given history, physical exam and ED workup. Pt was educated on all prescription medications and adverse effects. All patient's questions were answered and pt was stable at time of discharge. Life/limb-threatening differential includes but is not limited to, trauma (fracture, dislocation, laceration, compartment syndrome, tendon or ligament injury), neurovascular injury or deficitcva/tia, infection (osteomyelitis, abscess, cellulitis, septic arthritis, necrotizing fasciitis), deep vein thrombosis, renal/cardiac/liver disease, medication adverse effect, lymphedema/anasarca, vascular insufficiency or malignancy, I have spoken with the patient and/or caregivers. I explained the patient's condition, diagnoses and treatment plan based on the information available to me at this time. I have answered the patient and/or caregiver's questions and addressed any concerns. The patient and/or caregivers have a good understanding of patient's diagnosis, condition and treatment plan as can be expected at this point. Vital signs have been stable. Patient's condition is stable and appro priate for discharge from the emergency department. Patient will pursue further outpatient evaluation with primary care physician or other designated or consulting physician as outlined in the discharge instructions. The patient and/or caregivers are agreeable to this plan of care and follow-up instructions have been explained in detail. The patient and/or caregivers have received these instructions in written form and have expressed an understanding of the discharge instructions. The patient and/or caregivers are aware that any significant change of condition or worsening of symptoms should prompt immediate return to this or the closest emergency department or call to 911. [place] Disclaimer: [place] Disclaimer: This electronic medical record was generated, in whole or in part, using a voice recognition dictation system. Departure Departure Impression: Primary Impression: Ingrown toenail of left foot with infection Disposition: HOME / SELF CARE / HOMELESS Condition: STABLE Referrals: Mark ROMAN MD (PCP) In 2 to 5 days for reevaluation Patient Instructions: Infected Ingrown Toenail Additional Instructions: FOLLOW UP WITH PODIATRY: FOR DEFINITIVE MANAGEMENT within the next week [facility] [address] [address] Scripts Sulfamethoxazole/Trimethoprim (BACTRIM DS TABLET) 1 Each Tablet 1 TAB PO BID for infection for 10 Days, #20 TAB Prov: YOLI PERALTA DO 04/28/21 Cephalexin (CEPHALEXIN) 500 Mg Capsule 1 CAP PO QID for 10 Days, #40 CAP Prov: YOLI PERALTA DO 04/28/21 YOLI PERALTA DO Apr 27, 2021 21:53
[2021-04-27 23:08] LABS: BASO # 0.1 x10^3/uL (0.0-0.2); BASO % 1 % (0-3); EOS # 0.2 x10^3/uL (0.0-0.7); EOS % 2 % (0-3); HEMATOCRIT 39.3 % (36.0-47.0); HEMOGLOBIN 13.2 g/dL (12.0-15.5); LYMPH # 2.6 x10^3/uL (1.0-4.8); LYMPH % 27 % (24-48); MEAN CORPUSCULAR HEMOGLOBIN 31 pg (25-35); MEAN CORPUSCULAR HGB CONC 34 g/dL (31-37); MEAN CORPUSCULAR VOLUME 94 fL (79-100); MONO # 0.6 x10^3/uL (0.0-1.1); MONO % 6 % (0-9); NEUT # 6.3 x10^3/uL (1.8-7.7); NEUT % 64 % (31-73); PLATELET COUNT 308 x10^3/uL (140-400); RED BLOOD COUNT 4.19 x10^6/uL (3.50-5.40); RED CELL DISTRIBUTION WIDTH 14.2 % (11.5-14.5); WHITE BLOOD COUNT 9.7 x10^3/uL (4.0-11.0)
--- NOTE | 2021-04-27 23:18 | RAD ---
XR CHEST 1V History: Pain Comparison: November 30, 2018 Findings: No consolidation or pleural effusion. Normal heart size. No pneumothorax. Impression: 1. No acute cardiopulmonary process. Electronically signed by: Cachorro Cortes DO (04/27/2021 11:16 PM) [facility]
--- NOTE | 2021-04-27 23:20 | RAD ---
XR LT TOE 2+ VIEWS History: Reason: left toe pain/swelling / Spl. Instructions: / History: Technique: 3 views left foot Comparison: None. Findings: No dislocation. No acute fracture. No radiographic evidence of osteomyelitis. Mild midfoot DJD. Plant ar calcaneal spur. Benign-appearing periosteal reaction along the fourth metatarsal, may relate to pr ior trauma. Dorsal foot soft tissue swelling. Impression: 1. No radiographic evidence of osteomyelitis. If persistent clinical concern, MRI can better evaluat e. 2. Dorsal foot soft tissue swelling. Electronically signed by: Cachorro Cortes DO (04/27/2021 11:18 PM) [facility]
[2021-04-27 23:21] LABS: CALCIUM 9.2 mg/dL (8.5-10.1); CREATININE 0.9 mg/dL (0.6-1.0); GFR 75.3; POTASSIUM 3.8 mmol/L (3.5-5.1)
[2021-04-27 23:26] LABS: ALBUMIN 3.6 g/dL (3.4-5.0); ALBUMIN/GLOBULIN RATIO 1.1 (1.0-1.7); TOTAL BILIRUBIN 0.4 mg/dL (0.2-1.0)
--- NOTE | 2021-04-28 00:50 | EKG ---
[facility] [address] [place] [address] Test Date: 2021-04-27 Test Time: 22:20:07 Pat Name: LEISA TURK Department: Room: Gender: F Organizational Consultant: : 1955 Requested By: YOLI PERALTA Order Number: [id number] Reading MD: Measurements Intervals [place] Rate: 86 P: 19 NC: 184 QRS: 16 QRSD: 70 T: 47 QT: 354 QTc: 427 Interpretive Statements SINUS RHYTHM NO SPECIFIC ECG ABNORMALITIES RI6.02 No previous ECG available for comparison
--- NOTE | 2021-04-28 01:00 | RAD ---
EXAM: Bilateral lower extremity venous Doppler. HISTORY: Bilateral lower extremity pain/swelling. COMPARISON: None. FINDINGS: Grayscale and Doppler analysis of the both lower extremity deep venous systems was performe d with graded compression and augmentation. The common femoral, greater saphenous, superficial femora l, popliteal and calf veins were assessed. There is no evidence of deep venous thrombosis. IMPRESSION: 1. No evidence of deep venous thrombosis. Electronically signed by: Harriet Byrne MD (04/28/2021 12:57 AM) [facility]
[2021-04-28 01:38] VITALS: BP 166/78
[2021-04-28] MEDS ORDERED: SULF1TAB24 PO (01:47)
[2021-04-28] MEDS ORDERED: CEPH500C PO (01:47)
== END 2021-04-28 02:15 | disposition home or self-care (01) ==
LOC: ER 19:22
DX: L60.0 Ingrowing nail (principal); L08.89 Other specified local infections of the skin and subcutaneous tissue; M19.90 Unspecified osteoarthritis, unspecified site; E11.9 Type 2 diabetes mellitus without complications; E78.00 Pure hypercholesterolemia, unspecified; I10 Essential (primary) hypertension; Z88.8 Allergy status to other drugs, medicaments and biological substances; E78.5 Hyperlipidemia, unspecified; E66.9 Obesity, unspecified; Z68.36 Body mass index [BMI] 36.0-36.9, adult
CPT/HCPCS: 36415; 71045; 73660; 80053; 83880; 84484; 85025; 93005; 93970; 99285